=== PATIENT | female | born 1995 | race Caucasian/White ===

== ENCOUNTER 2024-05-17 08:27 | Outpatient (OUT) | payer OTHER, SELFPAY ==
--- NOTE | 2024-05-17 08:28 | US_ITS ---
The [address] [address] Patient Name: LANA GARCIA MRN: [id number] date: 1995 Sex: F Assigned Patient Location: [facility] Current Patient Location: Accession/Order Number: [id number] Exam Date: 05/17/2024 08:30 Report Date: 05/18/2024 05:00 At the request of: SAMMY PÉREZ Procedure: US OB transvaginal EXAMINATION: US OB transvaginal HISTORY: MISSED MENSES COMPARISON: No relevant comparison available. FINDINGS: GESTATIONAL SAC: Present and normal appearing. YOLK SAC: Present and normal appearing. POLE: Present and normal appearing. CARDIAC: Present. UTERUS: Normal size and appearance. OVARIES: Right: Corpus lutein cyst. Left: Normal. CERVIX: 3.7 cm in length and closed. CUL-DE-SAC: Normal. OTHER: None. AGE BY LMP: 8 weeks 2 days ANA BY LMP: 12/25/2024 AGE BY US CRL: 8 weeks 2 days ANA BY US CRL: 12/25/2024 US/US OB transvaginal IMPRESSION: 1. Single live intrauterine . Electronically authenticated by: FILIPPO CABRERA Date: 05/18/2024 05:00
== END 2024-05-17 08:28 | disposition home or self-care (01) ==
LOC: NOMS 08:27
PROVIDERS: Visit Provider Obstetrics & Gynecology
DX: Z34.91 Encounter for supervision of normal pregnancy, unspecified, first trimester (principal); Z3A.08 8 weeks gestation of pregnancy; N92.6 Irregular menstruation, unspecified
CPT/HCPCS: 76817

== ENCOUNTER 2024-05-30 12:55 | Outpatient (OUT) | payer OTHER, SELFPAY ==
[2024-05-30 13:23] LABS: Basophils Percent Auto 0.4 % (0.2-2.0); Eosinophils Percent Auto 0.3 % (0.9-7.0); Hematocrit 39.2 % (36.0-48.0); Hemoglobin 13.2 g/dL (12.0-16.0); Immature Granulocytes Abs Auto 0.05 10^3/uL (0.00-0.03); Immature Granulocytes Pct Auto 0.4 % (0.0-0.5); Lymphocytes Absolute Auto 1.9 10^3/uL (1.2-3.8); Lymphocytes Percent Auto 16.9 % (20.5-60.0); Mean Corpuscular HGB Conc 33.7 g/dL (29.9-35.2); Mean Corpuscular Hemoglobin 30.5 pg (26.7-34.0); Mean Corpuscular Volume 90.5 fL (81.0-99.0); Mean Platelet Volume 9.3 fL (9.5-13.5); Monocytes Absolute Auto 0.5 10^3/uL (0.3-0.8); Monocytes Percent Auto 4.6 % (1.7-12.0); Neutrophils Absolute Auto 8.6 10^3/uL (1.4-6.5); Neutrophils Percent Auto 77.4 % (43.0-75.0); Platelet Count 393 10^3/uL (150-450); Red Blood Count 4.33 10^6/uL (4.20-5.40); Red Cell Distribution Width 12.6 % (11.0-15.0); White Blood Count 11.1 10^3/uL (4.0-11.0)
[2024-05-30 13:53] LABS: Estimated Average Glucose 91 mg/dL; Glycohemoglobin A1C 4.8 % (4.5-6.2)
[2024-05-30 13:55] LABS: Amphetamine Screen Urine NEGATIVE (NEGATIVE); Barbiturates Screen Urine NEGATIVE (NEGATIVE); Benzodiazepines Screen Urine NEGATIVE (NEGATIVE); Buprenorphine Screen Urine NEGATIVE (NEGATIVE); Cannabinoid Screen Urine NEGATIVE (NEGATIVE); Cocaine Screen Urine NEGATIVE (NEGATIVE); Methadone Screen Urine NEGATIVE (NEGATIVE); Methamphetamines Screen Urine NEGATIVE (NEGATIVE); Opiate Screen Urine NEGATIVE (NEGATIVE); Oxycodone Screen Urine NEGATIVE (NEGATIVE); Phencyclidine Screen Urine NEGATIVE (NEGATIVE); Tricyclic Antidepressant Urine NEGATIVE (NEGATIVE)
[2024-05-31 06:10] LABS: HBsAg Screen Negative (Negative); HCV Ab Non Reactive (Non Reactive); HIV Ab/p24 Ag Screen Non Reactive (Non Reactive)
[2024-05-31 10:11] LABS: Rapid Plasma Reagin, Quant Non Reactive titer (NonRea<1:1)
== END 2024-05-30 12:56 | disposition home or self-care (01) ==
LOC: LAB 12:57
PROVIDERS: PCP Family Medicine; Visit Provider Obstetrics & Gynecology
DX: Z34.01 Encounter for supervision of normal first pregnancy, first trimester (principal); N92.6 Irregular menstruation, unspecified
CPT/HCPCS: 36415; 80307; 83036; 85025; 86592; 86762; 86803; 86850; 86900; 86901; 87086; 87340; 87389

== ENCOUNTER 2024-07-15 21:44 | Outpatient (REF) | payer OTHER, SELFPAY ==
--- OUTSIDE RECORDS SUMMARY | 2024-07-15 21:48 | XMS_ITS | CCD ---
Author Organization [facility] Care Team Providers Care Optician Name Role Phone Valeria Ball Unavailable ANGELA POWELL Primary Care Physician Himanshu Arshad Attending Unavailable ANGELA POWELL Primary Care Unavailable Elissa Vargas Unavailable Alessandra Deluna MD Primary Care Provider SAMMY COLE Attending Unavailable Allergies Allergy Classification Reported Allergen(s) Allergy Type Date of Onset Reaction(s) Facility (9 sources) Phentermine Drug Allergy 023 Anxiety, Palpitations, Shortness of breath be2 [facility] Other (3 sources) Spironolactone; Translations: [spironolactone] Drug Allergy Unknown (qualifier value) [facility] (1 source) doxycyline Propensity to adverse reactions rash be2 [facility] Other (10 sources) Doxycycline; Translations: [doxycycline] Drug Allergy 023 Eruption of skin (disorder), Hives, Itching, Photosensitivity, Rash [facility] (8 sources) Spironolactone Drug Allergy 023 Hives, Itching, Photosensitivity [facility] Medications Current Medications Medication Drug Class(es) Dates Sig (Normalized) Sig (Original) [id number] 200 actuat albuterol 0.09 mg/actuat metered dose inhaler (1 source) beta2-Adrenergic Agonist Start: 05-06-2022 take 2 puff(s) by inhalation four times daily as needed Albuterol Sulfate HFA 108 (90 Base) MCG/ACT 2 puffs Inhalation 4 times a day prn Apr, Active azithromycin 250 mg oral tablet (1 source) Macrolide Antimicrobial Start: 05-06-2022 Azithromycin 250 MG 2 tablet on the first day, then 1 tablet daily for 4 days Orally Once a day for 5 day(s) Apr, Active cetirizine hydrochloride 10 mg oral capsule (1 source) Histamine-1 Receptor Antagonist Start: 10-13-2022 End: 10-20-2022 take 1 capsule by mouth once daily as needed cetirizine 10 mg oral capsule 10 mg = 1 cap(s), Oral, Daily, PRN for allergy symptoms, X 7 day(s), # 7 cap(s), Refills(s) 0, Pharmacy: [facility], 170, cm, 10/13/22 15:21:00 EDT, Height/Length Dosing, 91.6, kg, 10/13/22 15:21:00 EDT, Weight Dosing Start Date: 10/13/22 Stop Date: 10/20/22 Status: Ordered Ethinyl Estradiol / Ferrous fumarate / Norethindrone (3 sources) Estrogen Start: 11-08-2022 End: 05-17-2024 take 1 tablet by mouth in the morning 07/15 1-20 MG-MCG tablet Take 1 tablet by mouth in the morning. 11/08/2022 05/17/2024 Discontinued (Therapy completed) Start: 08-28-2020 take 1 tablet by mouth once da olimpia 07/15 oral tablet 1 tab(s), Oral, Daily Start Date: 08/28/20 Status: Ordered FLUoxetine 20 mg oral capsule (8 sources) Serotonin Reuptake Inhibitor Start: 12-01-2022 take 1 capsule by mouth in the morning FLUoxetine (PROzac) 20 MG capsule Indications: Anxiety Take 1 capsule (20 mg) by mouth in the morning. 90 capsule 1 12/01/2022 Active predniSONE 20 mg oral tablet (2 sources) Start: 10-13-2022 End: 10-18-2022 take 1 tablet by mouth once daily predniSONE 20 mg Tab 20 mg = 1 tab(s), Oral, Daily, X 5 day(s), # 5 tab(s), Refills(s) 0, Pharmacy: [facility], 170, cm, 10/13/22 15:21:00 EDT, Height/Length Dosing, 91.6, kg, 10/13/22 15:21:00 EDT, Weight Dosing Start Date: 10/13/22 Stop Date: 10/18/22 Status: Ordered Start: 05-06-2022 take 1 tablet by volodymyr th every twelve hours predniSONE 20 MG 1 tablet Orally 2 times a day for 5 day(s) Apr, Active Problems Active Problems Problem Classification Problem Date Documented Date Episodic/Chronic Chronic obstructive pulmonary disease and bronchiectasis (1 source) Bronchitis, not specified as acute or chronic Episodic Immunizations and screening for infectious disease (2 sources) Exposure to sexually transmissible disorder; Translations: [Contact with and (suspected) exposure to infections with a predominantly sexual mode of transmission] 07-15-2024 Episodic Menstrual disorders (1 source) Missed period; Translations: [Irregular menstruation, unspecified] 05-17-2024 Chronic Other female genital disorders (2 sources) Vaginal discharge; Translations: [Other specified noninflammatory disorders of vagina] 07-15-2024 Episodic Other inflammatory condition of skin (1 source) Pruritic rash; Translations: [Other prurigo] Onset: 10-13-2022 Episodic Other nervous system disorders (1 source) Numbness of foot ; Translations: [Other disturbances of skin sensation] Episodic Other and delivery including normal (12 sources) ; Translations: [Encounter for supervision of normal , unspecified, unspecified trimester] Onset: 06-17-2024 05-17-2024 Episodic Other screening for suspected conditions (not mental disorders or infectious disease) (2 sources) Patient encounter status; Translations: [Encounter for other specified screening] 07-15-2024 Episodic Residual codes; unclassified (8 sources) Gestation period, 12 weeks; Translations: [12 weeks gestation of ] Onset: 06-17-2024 06-17-2024 Episodic Residual codes; unclassified (2 sources) Gestation period, 16 weeks; Translations: [16 weeks gestation of ] 07-15-2024 Episodic Past or Other Problems Problem Classification Problem Date Documented Da te Episodic/Chronic Unclassified (1 source) Contact with and (suspected) exposure to covid-19 Z20.822 Viral infection (1 source) COVID-19 NEGATED: Highlighted row has been ruled out!Unclassified (2 sources) No known active problems 12-01-2022 Results Test Name Value Interpretation Reference Range Facility Urinalysis macro (dipstick) panel (U)on 07-15-2024 Bilirubin, UA Negative Negative - 4(70) +++ mg/dL [facility] Blood, UA Negative Negative - 50 Leon/mcL [facility] Clarity, UA Clear [facility] Color, UA Yellow [facility] Glucose, UA Negative Negative - 1999(110) ++++ mg/dL [facility] Interpretation and review of laboratory results Abnormal [facility] Ketones, UA Negative Negative - 160(16) ++++ mg/dL [facility] Leukocytes, UA Trace Negative - 500+++ [place]/mcL [facility] Nitrite, UA Negative Negative - Positive [facility] pH, UA 6 5 - 9 [facility] Protein, UA Negative Negative - 1999(20) ++++ mg/dL [facility] Spec Grav, UA 1.01 1 - 1.03 [facility] Urobilinogen, UA 0.2 0.2 - 12 mg/dL [facility] Urinalysis macro (dipstick) panel (U)on 06-17-2024 Bilirubin, UA Negative Negative - 4(70) +++ mg/dL [facility] Blood, UA Negative Negative - 50 Leon/mcL [facility] Clarity, UA Clear [facility] Color, UA Yellow [facility] Glucose, UA Negative Negative - 1999(110) ++++ mg/dL [facility] Interpretation and review of laboratory results Abnormal [facility] Ketones, UA Negative Negative - 160(16) ++++ mg/dL [facility] Leukocytes, UA Negative Negative - 500+++ [place]/mcL [facility] Nitrite, UA Negative Negative - Positive [facility] pH, UA 6 5 - 9 [facility] Protein, UA Negative Negative - 1999(20) ++++ mg/dL [facility] Spec Grav, UA 1.01 1 - 1.03 [facility] Urobilinogen, UA 0.2 0.2 - 12 mg/dL [facility] MLR HEMOGLOBIN A1Con 024 Glucose [Mass/Vol] 91 mg/dL [facility] HbA1c (Bld) [Mass fraction] 4.8 % 4.5 - 6.2 % [facility] Comment on above: ADA RECOMMENDED LIMI T 4.0 - 6.0 ADA THERAPEUTIC TARGET < 7.0 ACTION SUGGESTED > 7.0 [facility] HCG ( test) Ql (U)o n 05-17-2024 Interpretation and review of laboratory results Abnormal [facility] Preg Test, Ur Positive Negative [facility] care [facility] Urinalysis macro (dipstick) panel (U)on 05-17-2024 Bilirubin, UA Negative Negative - 4(70) +++ mg/dL [facility] Blood, UA Negative Negative - 50 Leon/mcL [facility] Clarity, UA Clear [facility] re Color, UA Yellow [facility] Glucose, UA Negative Negative - 1999(110) ++++ mg/dL [facility] Interpretation and review of laboratory results Normal [facility] re Ketones, UA Negative Negative - 160(16) ++++ mg/dL [facility] Leukocytes, UA Negative Negative - 500+++ [place]/mcL [facility] Nitrite, UA Negative Negative - Positive [facility] pH, UA 6 5 - 9 [facility] Protein, UA Negative Negative - 1999(20) ++++ mg/dL [facility] Spec Grav, UA 1.025 1 - 1.03 [facility] Urobilinogen, UA 0.2 0.2 - 12 mg/dL [facility] Amb[facility] Visit Summaryon 0 10-13-2022 Ambulatory Visit Summary JENIFFER GARNETT Tree :1995 Visit Date:10/13/2022 Ambulatory Visit Instructions Your Diagnosis Pruritic rash Your Care Team Attending Physician - Himanshu Latif PA-C Primary Care Physician - ANGELA POWELL CNP This Is Your Medications List cetirizine (cetirizine 10 mg oral capsule) predniSONE (predniSONE 20 mg Tab) Contact prescribing physician if questions or concerns ethinyl estradiol-norethindro ne (07/15 oral tablet) Discharge Vitals Temperature (Oral) 37 ?C Heart Rate (Peripheral) 81 Height 170 cm Height 67 in Weight 91.6 kg Weight 201.52 lb BMI 31.7 What to do next You Need to Schedule the Following Appointments Follow Up with ANGELA POWELL CNP When: Where: [address] [place] [address] [address] [place] [phone] Medications What How Much When Why Instructions New cetirizine (cetirizine 10 mg oral capsule) 1 Capsules By Mouth Every day as needed for for allergy symptoms Pruritic rash Duration: 7 Days Pickup at [facility] 1985 New predniSONE (predniSONE 20 mg Tab) 1 Tablets By Mouth Every day Pruritic rash Duration: 5 Days Pickup at [facility] 1985 Unchanged ethinyl estradiol-norethindro ne ( oral tablet) 1 Tablets By Mouth Every day Contact prescribing physician if questions or concerns Pharmacy Information [facility] 1985: [address], [place] [phone] Medications and Immunizations Administered Not Given influenza virus vaccine, inactivated, Permanently Refused SARS-CoV-2 mRNA (tozinameran 5y-11y) vac, Parent Or Guardian Refuses Allergies doxycycline (Rash) spironolactone (Unknown) Education Materials Rash, Adult A rash is a change in the color of your skin. A rash can also change the way your skin feels. There are many different conditions and factors that can cause a rash. Follow these instructions at home: The goal of treatment is to stop the itching and keep the rash from spreading. Watch for any changes in your symptoms. Let your doctor know about them. Follow these instructions to help with your condition: Medicine Take or apply rrsf-rjo-qkmvzmi and prescription medicines only as told by your doctor. These may include medicines: ? To treat red or swollen skin (corticosteroid creams). ? To treat itching. ? To treat an allergy (oral antihistamines). ? To treat very bad symptoms (oral corticosteroids). Skin care ? Put cool cloths (compresses) on the affected areas. ? Do not scratch or rub your skin. ? Avoid covering the rash. Make sure that the rash is exposed to air as much as possible. Managing itching and discomfort ? Avoid hot showers or baths. These can make itching worse. A cold shower may help. ? Try taking a bath with: ? Epsom salts. You can get these at your local pharmacy or grocery store. Follow the instructions on the package. ? Baking soda. Pour a small amount into the bath as told by your doctor. ? Colloidal oatmeal. You can get this at your local pharmacy or grocery store. Follow the instructions on the package. ? Try putting baking soda paste onto your skin. Stir water into baking soda until it gets like a paste. ? Try putting on a lotion that relieves itchiness (calamine lotion). ? Keep cool and out of the sun. Sweating and being hot can make itching worse. General instructions ? Rest as needed. ? Drink enough fluid to keep your pee (urine) pale yellow. ? Wear loose-fitting clothing. ? Avoid scented soaps, detergents, and perfumes. Use gentle soaps, detergents, perfumes, and other cosmetic products. ? Avoid anything that causes your rash. Keep a journal to help track what causes your rash. Write down: ? What you eat. ? What cosmetic products you use. ? What you drink. ? What you wear. This includes jewelry. ? Keep all follow-up visits as told by your doctor. This is important. Contact a doctor if: ? You sweat at night. ? You lose weight. ? You pee (urinate) more than normal. ? You pee less than normal, or you notice that your pee is a darker color than normal. ? You feel weak. ? You throw up (vomit). ? Your skin or the whites of your eyes look yellow (jaundice). ? Your skin: ? Tingles. ? Is numb. ? Your rash: ? Does not go away after a few days. ? Gets worse. ? You are: ? More thirsty than normal. ? More tired than normal. ? You have: ? New symptoms. ? Pain in your belly (abdomen). ? A fever. ? Watery poop (diarrhea). Get help right away if: ? You have a fever and your symptoms suddenly get worse. ? You start to feel mixed up (confused). ? You have a very bad headache or a stiff neck. ? You have very bad joint pains or stiffness. ? You have jerky movements that you cannot control (seizure). ? Yo (more content not included)... Normal [facility] Ambulatory Visit Summary JENIFFER GARNETT :1995 Visit Date:10/13/2022 Ambulatory Visit Instructions Your Diagnosis Pruritic rash Your Care Team Attending Physician - Himanshu Latif PA-C. Primary Care Physician - ANGELA POWELL CNP This Is Your Medications List cetirizine (cetirizine 10 mg oral capsule) predniSONE (predniSONE 20 mg Tab) Contact prescribing physician if questions or concerns ethinyl estradiol-norethindro ne (07/15 oral tablet) Discharge Vitals Temperature (Oral) 37 ?C Heart Rate (Peripheral) 81 Height 170 cm Height 67 in Weight 91.6 kg Weight 201.52 lb BMI 31.7 What to do next You Need to Schedule the Following Appointments Follow Up with ANGELA POWELL CNP When: Where: [address] [place] [phone] Medications What How Much When Why Instructions New cetirizine (cetirizine 10 mg oral capsule) 1 Capsules By Mouth Every day as needed for for allergy symptoms Pruritic rash Duration: 7 Days Pickup at [facility] 1985 New predniSONE (predniSONE 20 mg Tab) 1 Tablets By Mouth Every day Pruritic rash Duration: 5 Days Pickup at [facility] Unchanged ethinyl estradiol-norethindro ne ( oral tablet) 1 Tablets By Mouth Every day Contact prescribing physician if questions or concerns Pharmacy Information [facility] 1986: [address] [place] [address] [place] [phone] Medications and Immunizations Administered Not Given influenza virus vaccine, inactivated, Permanently Refused SARS-CoV-2 mRNA (toerinameran 5y-11y) vac, Parent Or Guardian Refuses Allergies doxycycline (Rash) spironolactone (Unknown) Education Materials Rash, Adult A rash is a change in the color of your skin. A rash can also change the way your skin feels. There are many different conditions and factors that can cause a rash. Follow these instructions at home: The goal of treatment is to stop the itching and keep the rash from spreading. Watch for any changes in your symptoms. Let your doctor know about them. Follow these instructions to help with your condition: Medicine Take or apply gqpl-[id number] and prescription medicines only as told by your doctor. These may include medicines: ? To treat red or swollen skin (corticosteroid creams). ? To treat itching. ? To treat an allergy (oral antihistamines). ? To treat very bad symptoms (oral corticosteroids). Skin care ? Put cool cloths (compresses) on the affected areas. ? Do not scratch or rub your skin. ? Avoid covering the rash. Make sure that the rash is exposed to air as much as possible. Managing itching and discomfort ? Avoid hot showers or baths. These can make itching worse. A cold shower may help. ? Try taking a bath with: ? Epsom salts. You can get these at your local pharmacy or grocery store. Follow the instructions on the package. ? Baking soda. Pour a small amount into the bath as told by your doctor. ? Colloidal oatmeal. You can get this at your local pharmacy or grocery store. Follow the instructions on the package. ? Try putting baking soda paste onto your skin. Stir water into baking soda until it gets like a paste. ? Try putting on a lotion that relieves itchiness (calamine lotion). ? Keep cool and out of the sun. Sweating and being hot can make itching worse. General instructions ? Rest as needed. ? Drink enough fluid to keep your pee (urine) pale yellow. ? Wear loose-fitting clothing. ? Avoid scented soaps, detergents, and perfumes. Use gentle soaps, detergents, perfumes, and other cosmetic products. ? Avoid anything that causes your rash. Keep a journal to help track what causes your rash. Write down: ? What you eat. ? What cosmetic products you use. ? What you drink. ? What you wear. This includes jewelry. ? Keep all follow-up visits as told by your doctor. This is important. Contact a doctor if: ? You sweat at night. ? You lose weight. ? You pee (urinate) more than normal. ? You pee less than normal, or you notice that your pee is a darker color than normal. ? You feel weak. ? You throw up (vomit). ? Your skin or the whites of your eyes look yellow (jaundice). ? Your skin: ? Tingles. ? Is numb. ? Your rash: ? Does not go away after a few days. ? Gets worse. ? You are: ? More thirsty than normal. ? More tired than normal. ? You have: ? New symptoms. ? Pain in your belly (abdomen). ? A fever. ? Watery poop (diarrhea). Get help right away if: ? You have a fever and your symptoms suddenly get worse. ? You start to feel mixed up (confused). ? You have a very bad headache or a stiff neck. ? You have very bad joint pains or stiffness. ? You have jerky movements that you cannot control (seizure). ? Yo (more content not included)... Normal [facility] Family Medicine Office/Clini c Noteon 10-13-2022 Family Medicine Office/Clinic Note Chief Complaint EST hives HPI Staff 27 year old female presents with hives for a week and Benadryl isn't helping it at all has no idea what caused it arms chest back and legs History of Present Illness I have reviewed and verified the staff HPI to be accurate for this encounter. 27-year-old female presents with complaint of itching and rash. Patient states on occasion she gets some raised lesions which are itching. She states she has itching in bilateral arms abdomen and back and also sometimes her face will itch. Denies any hives like rash or raised welts. Denies any new soaps lotions detergents contacts. She is unsure as to what is causing this but she has been taking Benadryl up to 2 tablets every 4 hours and she states is not doing anything. No belly pain no nausea vomiting diarrhea no recent viral illness or sick contacts. Review of Systems PHQ Score Initial Depression Screen Score: 0 Physical Exam Vitals & Measurements T: 37 ?C(Oral) HR: 81(Peripheral) SpO2: 98% HT: 67 in HT: 170 cm WT: 91.6 kg WT: 201.52 lb BMI: 31.7 General: Well developed, well nourished, in no acute distress Eyes: not assessed Ears: No deformity or lesion of external ear. Canals and TM appear normal bilaterally. TM?s intact, not inflamed, with normal light reflex. Hearing grossly normal to conversational speech Nose: mild nasal mucosa inflammation and edema Mouth: Mucous membranes moist. Normal oropharynx, and posterior pharynx without lesions or exudates. Tongue normal Neck: not assessed Lungs: Normal respiratory effort and clear to auscultation Cardio: regular rate and rhythm, no murmur Abdomen: not assessed Musculoskeletal: not assessed Extremity: not assessed Neurologic: not assessed Skin: No significant skin rash patient has some excoriations to the right upper inner bicep region in addition to the lower and upper abdomen. No weeping lesions no blistering lesions no macular papular rash no pustule type rash. No erythema or concern for cellulitis. No skin lesions noted. Mental Status: not assessed Assessment/Plan 1. Pruritic rash (L28.2: Other prurigo) Follow-up with primary care provider in 3 to 5 days contact their office to schedule follow-up appointment. Prescription for prednisone 20 mg daily x5 days a sent to pharmacy for you this is low-dose in regards to reaction of hypersensitivity to prior Medrol Dosepak so we discussed and decided to not taper. You also understand that not tapering may not provide the exact benefit you are looking for. We discussed in regards to a daily Zyrtec which is nondrowsy to help with itching which should cover you for 24 hours. Continue to monitor if you notice any spreading rash if he develop hives or welted lesions or for any other worsening or concerning symptoms he should be reevaluated. Ordered: cetirizine, 10 mg = 1 cap(s), Oral, Daily, PRN for allergy symptoms, X 7 day(s), # 7 cap(s), Refills(s) 0, Pharmacy: [facility] 1985, 170, cm, 10/13/22 15:21:00 EDT, Height/Length Dosing, 91.6, kg, 10/13/22 15:21:00 EDT, Weight Dosing predniSONE, 20 mg = 1 tab(s), Oral, Daily, X 5 day(s), # 5 tab(s), Refills(s) 0, Pharmacy: [facility] 1985, 170, cm, 10/13/22 15:21:00 EDT, Height/Length Dosing, 91.6, kg, 10/13/22 15:21:00 EDT, Weight Dosing Follow-up With When Contact Information ANGELA POWELL CNP [address] [facility] [address] [place] [phone] Additional Instructions: Patient Education Rash, Adult, [id number] Problem List/Past Medical History Ongoing No qualifying data Historical No qualifying data Medications cetirizine 10 mg oral capsule, 10 mg= 1 cap(s), Oral, Daily, PRN 07/15 oral tablet, 1 tab(s), Oral, Daily predniSONE 20 mg Tab, 20 mg= 1 tab(s), Oral, Daily Allergies doxycycline (Rash) spironolactone (Unknown) Social History Tobacco Never (less than 100 in lifetime), vape Tobacco Use:. Vaping, 10/13/2022 Immunizations Vaccine Date Status Comments influenza virus vaccine, inactivated - Not Given Permanently Refused SARS-CoV-2 mRNA (toerinameran 5y-11y) vac - Not Given Parent Or Guardian Refuses Normal [facility] Comment on above: Result Comment: Elec tronically Signed By: Salomon CAI, Himanshu Kwok\.br\Date and Time Signed: 10/13/22 15:45 EDT Patient Educationon 10-14-19 Patient Education Infectious Disease Rash, Adult A rash is a change in the color of your skin. A rash can also change the way your skin feels. There are many different conditions and factors that can cause a rash. Follow these instructions at home: The goal of treatment is to stop the itching and keep the rash from spreading. Watch for any changes in your symptoms. Let your doctor know about them. Follow these instructions to help with your condition: Medicine Take or apply [id number] and prescription medicines only as told by your doctor. These may include medicines: ? To treat red or swollen skin (corticosteroid creams). ? To treat itching. ? To treat an allergy (oral antihistamines). ? To treat very bad symptoms (oral corticosteroids). Skin care ? Put cool cloths (compresses) on the affected areas. ? Do not scratch or rub your skin. ? Avoid covering the rash. Make sure that the rash is exposed to air as much as possible. Managing itching and discomfort ? Avoid hot showers or baths. These can make itching worse. A cold shower may help. ? Try taking a bath with: ? Epsom salts. You can get these at your local pharmacy or grocery store. Follow the instructions on the package. ? Baking soda. Pour a small amount into the bath as told by your doctor. ? Colloidal oatmeal. You can get this at your local pharmacy or grocery store. Follow the instructions on the package. ? Try putting baking soda paste onto your skin. Stir water into baking soda until it gets like a paste. ? Try putting on a lotion that relieves itchiness (calamine lotion). ? Keep cool and out of the sun. Sweating and being hot can make itching worse. General instructions ? Rest as needed. ? Drink enough fluid to keep your pee (urine) pale yellow. ? Wear loose-fitting clothing. ? Avoid scented soaps, detergents, and perfumes. Use gentle soaps, detergents, perfumes, and other cosmetic products. ? Avoid anything that causes your rash. Keep a journal to help track what causes your rash. Write down: ? What you eat. ? What cosmetic products you use. ? What you drink. ? What you wear. This includes jewelry. ? Keep all follow-up visits as told by your doctor. This is important. Contact a doctor if: ? You sweat at night. ? You lose weight. ? You pee (urinate) more than normal. ? You pee less than normal, or you notice that your pee is a darker color than normal. ? You feel weak. ? You throw up (vomit). ? Your skin or the whites of your eyes look yellow (jaundice). ? Your skin: ? Tingles. ? Is numb. ? Your rash: ? Does not go away after a few days. ? Gets worse. ? You are: ? More thirsty than normal. ? More tired than normal. ? You have: ? New symptoms. ? Pain in your belly (abdomen). ? A fever. ? Watery poop (diarrhea). Get help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 General: Bowel sounds are normal. There is no distension. Palpations: Abdomen is soft. Tenderness: There is no abdominal tenderness. There is no guarding or rebound. Musculoskeletal: General: No swelling. Normal range of motion. Right lower leg: No edema. Left lower leg: No edema. Neurological: Mental Status: She is alert and oriented to person, place, and time. Skin: General: Skin is warm and dry. Psychiatric: Mood and Affect: Mood normal. Behavior: Behavior normal. Vitals and nursing note reviewed. Exam conducted with a ship fastener present. Vitals: Estimated body mass index is 36.65 kg/m as calculated from the following: Height as of 12/01/22: 5' 7 . Weight as of 05/17/24: 234 lb. BP: Patient's last menstrual period was 03/20/2024. ASSESSMENT & PLAN ICD-10-CM 1. 12 weeks gestation of Z3A.12 POCT urinalysis dipstick manually resulted 2. Second trimester Z34.92 POCT urinalysis dipstick manually resulted New OB: Patient presents today for 1st time obstetrics appointment with provider. Patient is currently 12w5d . Patients history has been reviewed in great detail including any potential risks. Patient stated she currently has no complaints. Expectations throughout regarding labs, ultrasounds, and appointments have been discussed with the patient in detail. It was reiterated that the patient is to drink 6-8 glasses of water a day, eat 6 small meals a day, do not consume raw or undercooked meat, and stay away from [facility]. Patient has been consulted regarding any further do's and don'ts of . Patient voiced understanding and all questions and concerns were answered. Orders Placed This Encounter Procedures POCT urinalysis dipstick manually resulted Follow Up: Patient is to return in 4 weeks for routine OB appointment. Documented by Marlen Tejeda LPN on behalf of: Sammy Cole documented in this encounter [facility] 05-17-2024 History of Present illness Narrative Reason for Appointment: Patient ID: Jeniffer Garnett is a 29 y.o. female who presents for Amenorrhea Patient presents today for a Nurse OB Intake appointment. Patient is 8w2d with a Estimated Date of Delivery: 12/25/24 OB History Para Term AB Living 1 SAB IAB Ectopic Multiple Live Births # Outcome Date GA Lbr Jd/2nd Weight Sex Type Anes PTL Lv 1 Current Current Medications: has a current medication list which includes the following prescription(s): fluoxetine. Medical History: Active Ambulatory Problems Diagnosis Date Noted No Active Ambulatory Problems Resolved Ambulatory Problems Diagnosis Date Noted No Resolved Ambulatory Problems Past Medical History: Diagnosis Date Anxiety Depression (CMS/HCC) Family History Problem Relation Name Age of Onset Depression Mother Maura Hypertension Mother Maura Asthma Father Jesse Heart disease Paternal Grandfather Roger Social History Tobacco Use Smoking status: Never Smokeless tobacco: Never Vaping Use Vaping status: Every Day Substance Use Topics Alcohol use: Not Currently Drug use: Not Currently Past Surgical History: Procedure Laterality Date ADENOIDECTOMY TONSILLECTOMY Allergies Allergen Reactions Phentermine Anxiety, Palpitations and Shortness of breath Other Reaction(s): heart racing Spironolactone Hives, Itching and Photosensitivity Doxycycline Hives, Itching, Photosensitivity and Rash Vitals: Estimated body mass index is 32.08 kg/m as calculated from the following: Height as of 12/01/22: 5' 7 . Weight as of 12/01/22: 204 lb 12.8 oz. BP: Patient's last menstrual period was 03/20/2024. Assessment/Plan Diagnoses and all orders for this visit: Missed menses - Type and screen; Future - ABO/Rh; Future - CBC and differential - Hemoglobin A1c - RPR - Rubella antibody, IgG - Hepatitis B surface antigen - Hepatitis C antibody - HIV-1 and HIV-2 antibodies - Urine culture - OB transvaginal; Future - POCT , urine manually resulted - POCT urinalysis dipstick manually resulted , unspecified gestational age - Type and screen; Future - ABO/Rh; Future - CBC and differential - Hemoglobin A1c - RPR - Rubella antibody, IgG - Hepatitis B surface antigen - Hepatitis C antibody - HIV-1 and HIV-2 antibodies - Rapid drug screen, urine; Future Encounter for supervision of normal first in first trimester - Rapid drug screen, urine; Future Nurse Note: OB Intake: Patient presents today for first OB visit. Patients history has been reviewed in great detail including any potential risks. Patient signed consent forms and patient desires testing in both trimesters. Patient currently has no complaints and has been advised to drink 6-8 glasses of water a day, eat no raw or undercooked meat, and stay away from [facility]. Patient has also been advised to not change litter boxes and eat 6 small meals a day. Patient has been consulted regarding the do's and don'ts of . Patient was given labs and all questions and concerns were answered. Follow Up: Patient is to return in 4 weeks for routine OB appointment. Follow Up: Patient is to have labs drawn at directed and return to office for initial OB appointment with provider. Patient may call office as needed with any concerns or questions. Nurse Visit Completed by: Brandie Estes MA documented in this encounter [facility] 10-13-2022 Hospital Discharge instructions Patient Education 10/13/2022 15:44:45 Rash, Adult, Dluk-oj-Zjll Rash, Adult A rash is a change in the color of your skin. A rash can also change the way your skin feels. There are many different conditions and factors that can cause a rash. Follow these instructions at home: The goal of treatment is to stop the itching and keep the rash from spreading. Watch for any changes in your symptoms. Let your doctor know about them. Follow these instructions to help with your condition: Medicine Take or apply iywe-xxx-lffqgrj and prescription medicines only as told by your doctor. These may include medicines: To treat red or swollen skin (corticosteroid creams). To treat itching. To treat an allergy (oral antihistamines). To treat very bad symptoms (oral corticosteroids). Skin care Put cool cloths (compresses) on the affected areas. Do not scratch or rub your skin. Avoid covering the rash. Make sure that the rash is exposed to air as much as possible. Managing itching and discomfort Avoid hot showers or baths. These can make itching worse. A cold shower may help. Try taking a bath with: ?Epsom salts. You can get these at your local pharmacy or grocery store. Follow the instructions on the package. ?Baking soda. Pour a small amount into the bath as told by your doctor. ?Colloidal oatmeal. You can get this at your local pharmacy or grocery store. Follow the instructions on the package. Try putting baking soda paste onto your skin. Stir water into baking soda until it gets like a paste. Try putting on a lotion that relieves itchiness (calamine lotion). Keep cool and out of the sun. Sweating and being hot can make itching worse. General instructions Rest as needed. Drink enough fluid to keep your pee (urine) pale yellow. Wear loose-fitting clothing. Avoid scented soaps, detergents, and perfumes. Use gentle soaps, detergents, perfumes, and other cosmetic products. Avoid anything that causes your rash. Keep a journal to help track what causes your rash. Write down: ?What you eat. ?What cosmetic products you use. ?What you drink. ?What you wear. This includes jewelry. Keep all follow-up visits as told by your doctor. This is important. Contact a doctor if: You sweat at night. You lose weight. You pee (urinate) more than normal. You pee less than normal, or you notice that your pee is a darker color than normal. You feel weak. You throw up (vomit). Your skin or the whites of your eyes look yellow (jaundice). Your skin: ?Tingles. ?Is numb. Your rash: ?Does not go away after a few days. ?Gets worse. You are: ?More thirsty than normal. ?More tired than normal. You have: ?New symptoms. ?Pain in your belly (abdomen). ?A fever. ?Watery poop (diarrhea). Get help right away if: You have a fever and your symptoms suddenly get worse. You start to feel mixed up (confused). You have a very bad headache or a stiff neck. You have very bad joint pains or stiffness. You have jerky movements that you cannot control (seizure). Your rash covers all or most of your body. The rash may or may not be painful. You have blisters that: ?Are on top of the rash. ?Grow larger. ?Grow together. ?Are painful. ?Are inside your nose or mouth. You have a rash that: ?Looks like purple pinprick-sized spots all over your body. ?Has a bull's eye or looks like a target. ?Is red and painful, causes your skin to peel, and is not from being in the sun too long. Summary A rash is a change in the color of your skin. A rash can also change the way your skin feels. The goal of treatment is to stop the itching and keep the rash from spreading. Take or apply ulqi-rsa-fnjmfsg and prescription medicines only as told by your doctor. Contact a doctor if you have new symptoms or symptoms that get worse. Keep all follow-up visits as told by your doctor. This is important. This information is not intended to replace advice given to you by your health care provider. Make sure you discuss any questions you have with your health care provider. Document Revised: 03/24/2022 Document Reviewed: 03/24/2022 [employer] Patient Education 2022 [employer] Follow Up Care 10/13/2022 14:06:58 With:ANGELA POWELL CNP Address: [address] [place] [phone] When: Unknown [facility] 05-06-2022 Evaluation note Encounter Date Diagnosis Assessment Notes Apr, COVID-19 (ICD-10 - U07.1) Medrol doseDischarge Instructions for COVID-19 (Suspected or Confirmed ) material was printed Drink plenty fluids, get plenty of rest. Take as prescribed until gone. Use Delsym cough syrup for the cough. Take Tylenol or Motrin for aches pains or fevers. You must quarantine for 5 days after the onset of your symptoms of COVID. Follow-up with your family physician if no improvement in 2 to 3 days. Take the azithromycin and the prednisone as prescribed until gone. Use the albuterol inhaler as prescribed as needed for cough or shortness of breath. Apr, Bronchitis (ICD-10 - J40) Apr, Contact with and (suspected) exposure to covid-19 (ICD-10 - Z20.822) [facility] Other Evaluation + Plan note No data available for this section [facility] Evaluation note* Diagnosis Missed menses , unspecified gestational age Encounter for supervision of normal first in first trimester [facility] Diagnosis 12 weeks gestation of Second trimester state, incidental [facility]* Diagnosis Screening, , for anatomic survey Encounter for anatomic survey Second trimester state, incidental 16 weeks gestation of Well woman exam with routine gynecological exam Routine gynecological examination Vaginal discharge Leukorrhea, not specified as infective STD exposure documented [facility] Narrative - Reported* Type Description Date Medical History Autonomic nervous system disease or syndrome Surgical History T+A age 8 Hospitalization History T+A [employer] [facility] Other Progress note No data available for this section [facility] Summary Purpose Family History No Family History Records FoundNo Family History Records FoundNo Family History Records Found Advance Directives No Advanced Directives Records FoundNo Advanced Directives Records FoundNo Advanced Directives Records Found Additional Source Comments INFORMATION SOURCE (unrecogn ized section and content) DATE CREATED AUTHOR [facility] DATE CREATED AUTHOR AUTHOR'S ORGANIZ ATION 10/14/2022 [facility] DATE CREATED AUTHOR AUTHOR'S ORGANIZ ATION 06/19/2024 [facility] EPIC REASON FOR VISIT (unrecogniz ed section and content) Reason Comments Amenorrhea Reason Comments Routine Visit Patient Care team informatio n (unrecognized section and content) Optician Relationship Specialty Start Date End Date Alessandra Deluna MD [address] [place] [address] PCP - General Family Medicine 12/01/22 Elissa Hartman PA [address] [place] [address] Physician Customer Expert Family Medicine 12/01/22 Optician Relationship Specialty Start Date End Date Alessandra Deluna MD [address] [place] [address] PCP - General Family Medicine 12/01/22 Elissa Hartman PA [address] [place] [address] Physician Customer Expert Family Medicine 12/01/22 Optician Relationship Specialty Start Date End Date Alessandra Deluna MD [address] [place] [address] PCP - General Family Medicine 12/01/22 Elissa Hartman PA [address] [place] [address] Physician Customer Expert Family Medicine 12/01/22 Optician Relationship Specialty Start Date End Date Alessandra Deluna MD [address] [place] [address] PCP - General [facility] 12/01/22 Elissa Hartman PA [address] [place] [address] Physician Customer Expert [facility] 12/01/22 Optician Relationship Specialty Start Date End Date Alessandra Deluna MD [address] [place] [address] PCP - General Family Medicine 12/01/22 Elissa Hartman PA [address] [place] [address] Physician Customer Expert [facility] 12/01/22 Optician Relationship Specialty Start Date End Date Alessandra Deluna MD [address] [place] [address] PCP - General Family Medicine 12/01/22 Elissa Hartman PA [address] [place] [address] Physician Customer Expert [facility] 12/01/22 FOR RECORDS PERTAINING TO PATIENTS WHO ARE OR HAVE BEEN ENROLLED IN A CHEMICAL DEPENDENCY/SUBSTANCEABUSE PROGRAM, SOME INFORMATION MAY BE OMITTED. This clinical summary was aggregated from multiple sources. Caution should be exercised in using it in the provision of clinical care. This summary normalizes information from multiple sources, and as a consequence, information in this document may materially change the coding, format and clinical context of patient data. In addition, data may be omitted in some cases. CLINICAL DECISIONS SHOULD BE BASED ON THE PRIMARY CLINICAL RECORDS. [facility] [employer] [facility] [facility]. provides no warranty or guarantee of the accuracy or completeness of information in this document.
== END 2024-07-15 21:45 | disposition home or self-care (01) ==
LOC: LAB 21:44
PROVIDERS: PCP Family Medicine; Visit Provider Physician Assistant
DX: Z01.419 Encounter for gynecological examination (general) (routine) without abnormal findings (principal)
CPT/HCPCS: 88175

== ENCOUNTER 2024-09-26 08:01 | Outpatient (OUT) | payer OTHER, SELFPAY ==
--- OUTSIDE RECORDS SUMMARY | 2024-09-26 08:06 | XMS_ITS ---
Author Name Auto Generated Organization [facility] Care Team Providers Care Aircraft Time Clerk Name Role Phone SAMMY PÉREZ Attending Unavailable SAMMY PÉREZ Attending Unavailable PIERRE VEE Attending Unavailable PIERRE VEE Attending Unavailable PROBLEMS No Problem Records Found PROCEDURES No Procedure Records Found RESULTS US OB 14+ WEEKS ANATOMY SCAN Observed: 0 08/13/2024 8:55 AM Status: F Source: [facility] EPIC REPOSITORY Order Comment: US OB ANATOMY SINGLE W US OB CERVICAL LENGTH Estimated Date of Delivery: 12/25/24 Gestational Age as of 07/15/2024: 16w5d EXAM: US OB 14+ WEEKS ANATOM Y SCAN HISTORY: anatomy. TECHNIQUE: Two-dimensional transabdominal grayscale ultrasound imaging of the pelvis was performed. Exam limited by patient body habitus. FINDINGS: Gestation: Single Presentation: Cephalic Cardiac Activity: 153 beats per minute Placental Location: Anterior with no sonographic abnormalities identified. Distance from Placental Tip to Cervix: 3.6 cm Cervical Length: 3.3 cm Amniotic Fluid: Appears adequate MEASUREMENTS: BPD: 4.9 cm EGA: 21 weeks 0 days HC: 18.6 cm EGA: 21 weeks 0 days AC: 16.2 cm EGA: 21 weeks 2 days FL: 3.6 cm EGA: 21 weeks 3 days HC/AC Ratio: 1.15 The gestational age by today's ultrasound is 21 weeks 1 days (+/- 10 days gestation). Estimated Weight: 415 grams, +/- 62 grams ( 0 lb 15 oz). Weight Percentile for gestational age: 70 % ANATOMY C-Spine: Unremarkable T-Spine: Unremarkable L-Spine: Unremarkable Sacrum: Unremarkable Four Chamber Heart: Unremarkable LVOT: Not visualized RVOT: Not visualized Stomach: Unremarkable Kidneys: Unremarkable Bladder: Unremarkable Diaphragm: Unremarkable Cord insertion: Unremarkable Cord vessels: Three Lateral Ventricles: Unremarkable Cerebellum: Not visualized Cisterna Magna: Unremarkable Posterior Fossa: Limited Right Femur: Unremarkable Left Femur: Unremarkable Right Tib/Fib: Unremarkable Left Tib/Fib: Unremarkable Right Rad/Ulnar: Unremarkable Left Rad/Ulnar: Unremarkable Right Humerus: Unremarkable Left Humerus: Unremarkable Nose/Lips: Unremarkable Orbits: Unremarkable IMPRESSION: 1. Single, live intrauterine gestation 20 weeks, 6 days by LMP. Today's ultrasound measurements correlate with a gestational age of 21 weeks 1 days. Estimated weight is 415 grams, +/- 62 grams ( 0 lb 15 oz) which correlates to 70 %. ANA is 12/23/2024. 2. Limited assessment of the LVOT and RVOT. Otherwise unremarkable anatomy examination. Electronically Signed:Electronically signed by RODNEY MEDEIROS II, MD, PHD at 14-Aug-2024 08:01:53 AM [facility] ALLERGIES No Allergies Records Found ENCOUNTERS ADMIT/DISCHARGE ACCOUNT NUMBER ADMITTING ENCOUNTER CLASS LOCATION SOURCE 09/10/2024/ 5 [id number] Ambulatory Building:[facility] EPIC 08/13/2024/ 5 [id number] Ambulatory Building:[facility] EPIC 08/13/2024/ 5 [id number] Ambulatory Building:[facility] EPIC 07/15/2024/ 5 [id number] Ambulatory Building:[facility] EPIC 06/17/2024/ 4 [id number] Ambulatory Building:[facility] EPIC 05/17/2024/ 4 [id number] Ambulatory Building:[facility] ENCOUNTER GUARANTOR PAYER SUBSCRIBER SOURCE 09/10/2024 LANA KERNB: [place], [place] [address]Dwq: () Primary Insurance:MEDICAL MUTUALPolicy Number: [id number] e Date:2023-09-25 LANA CHRISTIANINGDOB: [id number] [place] [address] [facility] 08/13/2024 LANA Leavitt DOWNINGDOB: [place], [place] [address]Ohv: () Primary Insurance:MEDICAL MUTUALPolicy Number: [id number] e Date:2023-09-25 LANA CHRISTIANINGDOB: [id number] [place] [address] [facility] EPIC 08/13/2024 LANA Leavitt DOWNINGDOB: [place], [place] [address]Nlq: (HP) Primary Insurance:MEDICAL MUTUALPolicy Number: [id number] e Date:2023-09-25 LANA CHRISTIANINGDOB: [id number] [place] [address] [facility] EPIC 07/15/2024 LANA CHRISTIANINGDOB: [place], [place] [address]Pmt: () Primary Insurance:MEDICAL MUTUALPolicy Number: [id number] e Date:2023-09-25 LANA BOWDENDOB: [id number] [place] [address] [facility] EPIC 06/17/2024 LANA CHRISTIANINGDOB: [place], [place] [address]Cms: () Primary Insurance:MEDICAL MUTUALPolicy Number: [id number] e Date:2023-09-25 LANA BOWDENDOB: [id number] [place] [address] [facility] EPIC 05/17/2024 LANA CHRISTIANINGDOB: [place], [place] [address]Irh: () Primary Insurance:MEDICAL MUTUALPolicy Number: [id number] e Date:2023-09-25 LANA CHRISTIANINGDOB: [id number] [place] [address] [facility] EPIC
[2024-09-26 09:24] LABS: Basophils Percent Auto 0.2 % (0.2-2.0); Eosinophils Absolute Auto 0.1 10^3/uL (0.0-0.7); Eosinophils Percent Auto 0.6 % (0.9-7.0); Hematocrit 34.4 % (36.0-48.0); Hemoglobin 11.4 g/dL (12.0-16.0); Immature Granulocytes Abs Auto 0.07 10^3/uL (0.00-0.03); Immature Granulocytes Pct Auto 0.9 % (0.0-0.5); Lymphocytes Absolute Auto 1.1 10^3/uL (1.2-3.8); Lymphocytes Percent Auto 13.5 % (20.5-60.0); Mean Corpuscular HGB Conc 33.1 g/dL (29.9-35.2); Mean Corpuscular Hemoglobin 30.1 pg (26.7-34.0); Mean Corpuscular Volume 90.8 fL (81.0-99.0); Mean Platelet Volume 9.3 fL (9.5-13.5); Monocytes Absolute Auto 0.5 10^3/uL (0.3-0.8); Monocytes Percent Auto 6.4 % (1.7-12.0); Neutrophils Absolute Auto 6.4 10^3/uL (1.4-6.5); Neutrophils Percent Auto 78.4 % (43.0-75.0); Platelet Count 291 10^3/uL (150-450); Red Blood Count 3.79 10^6/uL (4.20-5.40); Red Cell Distribution Width 13.9 % (11.0-15.0); White Blood Count 8.2 10^3/uL (4.0-11.0)
[2024-09-26 09:29] LABS: Glucose 1 Hour 99 mg/dL (<130)
== END 2024-09-26 08:02 | disposition home or self-care (01) ==
LOC: LAB 08:02
PROVIDERS: PCP Family Medicine; Visit Provider Physician Assistant
DX: Z13.1 Encounter for screening for diabetes mellitus (principal)
CPT/HCPCS: 36415; 82950; 85025

== ENCOUNTER 2024-11-12 08:00 | Outpatient (OUT) | payer OTHER, SELFPAY ==
--- NOTE | 2024-11-12 08:00 | CA_ITS ---
Patient Name: LANA BOWDEN MR#: [id number] : 1995 Exam Date: 11/12/2024 Ordering Doctor: DR SAMMY PÉREZ . ECHOCARDIOGRAM REPORT PROCEDURE: CA ECHO DOPPLER COMPLETE INDICATIONS: Palpitations, 34 weeks COMPARISON: None. DESCRIPTION: COMPLETE ECHOCARDIOGRAM Real-time transthoracic echocardiography with 2D, M-mode, spectral and color flow Doppler performed. QUALITY: Technical quality was good. LEFT VENTRICLE: Normal chamber size. Thickened septal wall. Systolic function is normal. LV EF: Normal left ventricular ejection fraction, (65%). DIASTOLIC: Normal diastolic function. ATRIAL SEPTUM: LEFT ATRIUM: Normal chamber size. RIGHT ATRIUM: Normal chamber size. RIGHT VENTRICLE: Normal chamber size. Normal right ventricular systolic function. TRICUSPID VALVE: Normal mobility and thickness. No stenosis with no regurgitation. Unable to assess right-sided pressures due to lack of measurable tricuspid regurgitation. MITRAL VALVE: Normal mobility and thickness. No mitral valve prolapse. No evidence of mitral valve stenosis. There is no mitral annular calcification. Trivial mitral regurgitation. AORTIC VALVE: Normal trileaflet appearance. No visible sclerosis. Normal leaflet mobility. No evidence of aortic valve stenosis. No aortic regurgitation. AORTIC ROOT: Normal diameter and appearance, measuring 2.7 cm. Ascending aorta is normal in size, measuring 2.7 cm. PULMONIC VALVE: Normal thickness and mobility. No stenosis. Trivial regurgitation. PERICARDIUM: No evidence of pericardial effusion. IVC: Collapses with inspirations. IVC is normal in size. PLEURA: CONCLUSION: 1. Normal ventricular size and systolic function. LVEF is 65%. 2. Normal diastolic function. 3. No significant valvular dysfunction. 4. Unable to assess right-sided pressures due to lack of measurable tricuspid regurgitation. Adult Echocardiography Procedure Report Left Ventricle LVEDD (3.7 - 5.6 cm): 4.03 cm LVESD (2.2 - 4.0 cm): 2.38 cm LVIVS thickness (0.6 - 1.2 cm): 1.17 cm LVPW thickness (0.5 - 1.0 cm): 1.01 cm e': 0.15 m/s E - e': 5.48 LVOT Max Gradient: 2.97 mm[Hg] LVOT Area (cm2): 0.86 m/s Peak Velocity (LVOT): 0.86 m/s Mean Velocity (LVOT): 0.57 m/s LVOT Diameter 2.29 cm Left Atrium LA Volume Index (2D A2C): 22.51 ml/m2 Left Atrium Systolic Dimension: 4.17 cm Mitral Valve MV E to A Ratio: 1.51 Mitral Valve A-Wave Peak Velocity: 0.56 m/s Mitral Valve E-Wave Peak Velocity: 0.85 m/s Right Ventricle Aorta AO Root Diam: 2.67 cm Ascending Ao Diam: 2.71 cm Aortic Valve AoV Area (Peak Stephan): 2.78 cm2, 2.78 cm2 AoV Area (VTI): 2.62 cm2, 2.62 cm2 Peak Velocity(Antegrade Flow): 1.28 m/s Peak Gradient(Antegrade Flow): 6.52 mm[Hg] Mean Velocity(Antegrade Flow): 0.84 m/s Mean Gradient(Antegrade Flow): 3.27 mm[Hg] Velocity Time Integral: 27.46 cm Tricuspid Valve Pulmonic Valve Mean Gradient: 2.25 mm[Hg] Mean Velocity: 0.69 m/s Peak Velocity: 1.17 m/s, 1.21 m/s Peak Gradient: 5.86 mm[Hg], 5.44 mm[Hg] Right Atrium Right Atrium Systolic Pressure: 46.90 ml, 46.90 ml Dictated by: Gianni Alfaro M.D. on 11/12/2024 at 15:16 Approved by: Gianni Alfaro M.D. on 11/12/2024 at 15:20
== END 2024-11-12 08:01 | disposition home or self-care (01) ==
LOC: CARD 08:01
PROVIDERS: PCP Family Medicine; Visit Provider Obstetrics & Gynecology
DX: O26.893 Other specified pregnancy related conditions, third trimester (principal); Z3A.34 34 weeks gestation of pregnancy; R00.2 Palpitations
CPT/HCPCS: 93306

== ENCOUNTER 2024-11-27 20:32 | Outpatient (REF) | payer OTHER, SELFPAY ==
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
--- OUTSIDE RECORDS SUMMARY | 2024-11-27 13:50 | XMS_ITS | Encounter Summary ---
Author Organization [facility] Address [address] [place] [address] Care Team Providers Care X Ray Technologist Name Role Phone Elissa Hartman Unavailable [phone] Alessandra Deluna MD Primary Care Provider [phone] Reason for Visit * Reason Comments Routine Visit Encounter Details Date Type Department Care Team (Late st Contact Info) Description 11/27/2024 1:50 PM EDT Routine [facility] [address] [place] [address] Paulina James PA [address] [facility] [address] [place], [place] [id number] Third trimester ; 36 weeks gestation of Social History Tobacco Use [...] week 12/01/2022 How often do you attend sikh or taoism serv ices? Never 12/01/2022 Do you belong to any clubs o r organizations such as sikh groups, unions, fraternal or athletic groups, or [...] Recorded Patient Health Questionnaire-2 Score 0 12/01/2022 [facility] of Occupat ional Health - Occupational Stress [...] place to sleep or slept in a care home (including now)? No 12/01/2022 Estimated Date of [...] Sign Reading Time Taken Comments Blood Pressure 126/90 11/27/2024 2:04 PM EDT Pulse - - Temperature - - Respiratory Rate - - Oxygen Saturation - - Inhaled Oxygen Concentration - - Weight 121 kg (267 lb 8 oz) 11/27/2024 2:04 PM E DT Height - - Body Mass Index 41.9 12/01/2022 4:12 PM EDT documented in this encounter Progress Notes * AYDEE Diamond - 11/27/2024 1:50 PM EDT Reason for Appointment: Patient ID: Jeniffer [...] Exam Constitutional: Appearance: Normal appearance. She is normal weight. HENT: Head: Normocephalic. Cardiovascular: Rate and Rhythm: Normal rate. Pulses: Normal pulses. Pulmonary: Effort: Pulmonary effort is normal. Breath sounds: Normal breath sounds. Abdominal: Palpations: Abdomen is soft. Musculoskeletal: General: Normal range of motion. Neurological: General: No focal deficit present. Mental Status: She is alert and oriented to person, place, and time. Psychiatric: Mood and Affect: Mood normal. Behavior: Behavior normal. Thought Content: Thought content normal. Judgment: Judgment normal. Vitals and nursing note reviewed. Vitals: Estimated body mass index is 41.9 kg/m?? as calculated from the following: Height as of 12/01/22: 5' 7 . Weight as of this encounter: 267 lb 8 oz. BP: 126/90 Patient's last menstrual period was 03/20/2024. ASSESSMENT & PLAN ICD-10-CM 1. Third trimester Z34.93 CULTURE, GROUP B STREP WITH SUSCEPTIBLITY CULTURE, GROUP B STREP WITH SUSCEPTIBLITY POCT urinalysis dipstick manually resulted 2. 36 weeks gestation of Z3A.36 Patient is doing well but has complaints of being tired and having maternal discomfort due to . Patient verbalized frequent movement and was instructed to perform kick counts three times per day. labor precautions were given, LARC consent was signed/declined, and GBS was obtained. Cervical check was performed and patient is 1cm dilated. Orders Placed This Encounter Procedures CULTURE, GROUP B STREP WITH SUSCEPTIBLITY POCT urinalysis dipstick manually resulted Follow Up: Patient is to return to office in 1 week for routine OB appointment Documented by AYDEE Diamond on behalf of: AYDEE Diamond documented in this encounter Plan of Treatment Upcoming Encounters Date Type Department Care Team (Late st Contact Info) Description 12/04/2024 2:30 PM EDT Routine [facility] [address] [facility] [phone] DouglasStoney stevens, DO [address] [facility] [address] [place], [place] [id number] Scheduled Orders Name Type Priority Associated Diagnoses Orde r Schedule CULTURE, GROUP B STREP WITH SUSCEPTIBLITY Lab Routine Third trimester Expected: 11/27/2024, Expires: 11/27/2025 documented as of this encounter Procedures Procedure Name Priority Date/Time Associated Diagnosis Comments POCT URINALYSIS DIPSTICK Routine 11/27/2024 2:12 PM EDT Third trimester documented in this encounter Results * (ABNORMAL) POCT urinalysis dipstick manually resulted (11/27/2024 2:12 PM EDT) Color, UA Yellow Clarity, UA Clear Glucose, UA Negative Negative - 2000(110) ++++ mg/dL Bilirubin, UA Negative Negative - 4(70) +++ mg/dL Ketones, UA Negative Negative - 160(16) ++++ mg/dL Spec Grav, UA 1.015 1 - 1.03 Blood, UA Negative Negative - 50 Leon/mcL pH, UA 7.0 5 - 9 Protein, UA Negative Negative - 2000(20) ++++ mg/dL Urobilinogen, UA 0.2 0.2 - 12 mg/dL Leukocytes, UA Positive Negative - 500+++ Lourdes/mcL Comment:small Nitrite, UA Negative Negative - Positive Urine 11/27/2024 2:12 PM EDT Paulina BAJWA POINT OF CARE TEST ENTER/EDIT OR DERABLES Final Result documented in this encounter Visit Diagnoses Diagnosis Third trimester state, incidental 36 weeks gestation of documented in this encounter Care Teams X Ray Technologist Relationship Specialty Start Date End Date Alessandra Deluna MD [address] [place] [address] PCP - General Family Medicine 12/01/22 Elissa Hartman PA [address] [place] [address] Physician Hydraulic Controls Technician Family Medicine 12/01/22 documented as of this encounter
--- OUTSIDE RECORDS SUMMARY | 2024-11-27 20:35 | XMS_ITS | Encounter Summary ---
Author Organization [facility] Address [address] [place] [address] Care Team Providers Care Commercial Litigation Associate Name Role Phone Elissa Hartman Unavailable [phone] Alessandra Deluna MD Primary Care Provider [phone] Encounter Details Date Type Department Care Team (Late st Contact Info) Description 07/26/2024 Orders Only [facility] [address] [facility] [place] [address] Brandie Estes MA [address] [facility] [place] [address] Social History Tobacco Use Types Packs/Day Years [...] week 12/01/2022 How often do you attend protestant or hoahaoism serv ices? Never 12/01/2022 Do you belong to any clubs o r organizations such as protestant groups, unions, fraternal or athletic groups, or [...] Recorded Patient Health Questionnaire-2 Score 0 12/01/2022 [facility] of Occupat ional Health - Occupational Stress [...] place to sleep or slept in a senior care (including now)? No 12/01/2022 Estimated Date of Delivery Comme nts Yes 12/25/2024 Based on last me nstrual period of 03/20/2024 Sex and Gender Information Value Date Recorded Sex Assigned at Female 11/17/2022 9:01 AM EDT Legal Sex Female 7:08 PM EDT Gender Identity Female 11/17/2022 9:01 AM EDT Sexual Orientation Straight 11/17/2022 9: 01 AM EDT documented as of this encounter Plan of Treatment Upcoming Encounters Date Type Department Care Team (Late st Contact Info) Description 12/04/2024 2:30 PM EDT Routine [facility] [address] [facility] [address] Stoney Cole, DO [address] [facility] [place] [address] documented as of this encounter Procedures Procedure Name Priority Date/Time Associated Diagnosis Comments PAP SMEAR Routine 07/15/2024 12:00 AM EST documented in this encounter Results * Pap Smear (07/15/2024 12:00 AM EST) Swab Cervical swab / Unknown us Paulina BAJWA LAB CYTOLOGY ORDERABLES Final Re sult EXTERNAL LAB documented in this encounter Visit Diagnoses Not on filedocumented in this encounter Care Teams Commercial Litigation Associate Relationship Specialty Start Date End Date Alessandra Deluna MD [address] [place] [address] PCP - General Family Medicine 12/01/22 Elissa Hartman PA [address] [place] [address] Physician Bindery Machine Setter Family Medicine 12/01/22 documented as of this encounter
--- OUTSIDE RECORDS SUMMARY | 2024-11-27 20:35 | XMS_ITS | Encounter Summary ---
Author Organization [facility] Address [address] [place] [address] Care Team Providers Care Vocal Music Instructor Name Role Phone Elissa Hartman Unavailable [phone] Alessandra Deluna MD Primary Care Provider [phone] Encounter Details Date Type Department Care Team (Latest Contact Info) Description 11/13/2024 Travel Social History Tobacco Use Types Packs/Day Years [...] week 12/01/2022 How often do you attend yazidi or christian serv ices? Never 12/01/2022 Do you belong to any clubs o r organizations such as yazidi groups, unions, fraternal or athletic groups, or [...] Patient Health Questionnaire-2 Score 0 12/01/2022 [facility] - Occupational Stress Questionnaire Answer Date Recorded [...] PM EDT Routine [facility] [address] [facility] [place] [phone] Stoney Cole, [address] [facility] [place] [address] documented as of this encounter Visit Diagnoses Not on filedocumented in this encounter Care Teams Vocal Music Instructor Relationship Specialty Start Date End Date Alessandra Deluna MD [address] [place] [address] PCP - General Family Medicine 12/01/22 Elissa Hartman PA [address] [place] [address] Physician Manager Valuation Family Medicine 12/01/22 documented as of this encounter
--- OUTSIDE RECORDS SUMMARY | 2024-11-27 20:35 | XMS_ITS | Encounter Summary ---
Author Organization [facility] Address [address] [place] [address] Care Team Providers Care County Program Technician Name Role Phone Elissa Hartman Unavailable [phone] Alessandra Deluna MD Primary Care Provider [phone] Encounter Details Date Type Department Care Team (Latest Contact Info) Description 11/21/2024 Travel Social History Tobacco Use Types Packs/Day [...] week 12/01/2022 How often do you attend temple or jainism serv ices? Never 12/01/2022 Do you belong to any clubs o r organizations such as temple groups, unions, fraternal or athletic groups, or [...] Recorded Patient Health Questionnaire-2 Score 0 12/01/2022 [facility] - Occupational Stress Questionnaire Answer Date Recorded [...] place to sleep or slept in a group home (including now)? No 12/01/2022 Estimated Date [...] PM EDT Routine [facility] [address] [place] [phone] Stoney Cole, [address] [facility] [place] [address] documented as of this encounter Visit Diagnoses Not on filedocumented in this encounter Care Teams County Program Technician Relationship Specialty Start Date End Date Alessandra Deluna MD [address] [place] [address] PCP - General Family Medicine 12/01/22 Elissa Hartman PA [address] [place] [address] Physician Hammer Fitter Family Medicine 12/01/22 documented as of this encounter
--- OUTSIDE RECORDS SUMMARY | 2024-11-27 20:35 | XMS_ITS | Encounter Summary ---
Author Organization [facility] Address [address] [place] [address] Care Team Providers Care Sea Shell Gatherer Name Role Phone Elissa Hartman Unavailable [phone] Alessandra Deluna MD Primary Care Provider [phone] Encounter Details Date Type Department Care Team (Late st Contact Info) Description 08/05/2024 Abstract [facility] OB [address] [place] [address] Stoney Cole, DO [address] [place] [place], [facility] Social History Tobacco Use Types Packs/Day Years [...] week 12/01/2022 How often do you attend judaism or presybeterian serv ices? Never 12/01/2022 Do you belong to any clubs o r organizations such as judaism groups, unions, fraternal or athletic groups, or [...] Recorded Patient Health Questionnaire-2 Score 0 12/01/2022 [facility] - Occupational Stress Questionnaire Answer Date Recorded [...] place to sleep or slept in a nursing home (including now)? No 12/01/2022 Estimated Date [...] PM EDT Routine [facility] [address] [facility] [place] [address] Stoney Cole, [address] [place] [address] documented as of this encounter Visit Diagnoses Not on filedocumented in this encounter Care Teams Sea Shell Gatherer Relationship Specialty Start Date End Date Alessandra Deluna MD [address] [place] [address] PCP - General Family Medicine 12/01/22 Elissa Hartman PA [address] [place] [address] Physician Portable Power Tool Repairer Family Medicine 12/01/22 documented as of this encounter
--- OUTSIDE RECORDS SUMMARY | 2024-11-27 20:35 | XMS_ITS | Encounter Summary ---
Author Organization [facility] Address [address] [place] [address] Care Team Providers Care Mobile Developer Name Role Phone Elissa Hartman Unavailable [phone] Alessandra Deluna MD Primary Care Provider [phone] Encounter Details Date Type Department Care Team (Late st Contact Info) Description 05/17/2024 Abstract [facility] OB [address] [place] [address] Stoney Cole, DO [address] [place], [facility] Social History Tobacco Use Types Packs/Day [...] How often do you attend yazidi or holiness serv ices? Never 12/01/2022 Do you belong [...] Recorded Patient Health Questionnaire-2 Score 0 12/01/2022 [facility] - Occupational Stress Questionnaire Answer Date Recorded [...] place to sleep or slept in a snf (including now)? No 12/01/2022 Estimated Date of [...] PM EDT Routine [facility] [address] [facility] [place] [address] Stoney Cole, [address] [facility] [place] [address] documented as of this encounter Visit Diagnoses Not on filedocumented in this encounter Care Teams Mobile Developer Relationship Specialty Start Date End Date Alessandra Deluna MD [address] [place] [address] PCP - General Family Medicine 12/01/22 Elissa Hartman PA [address] [place] [address] Physician Seamless Tube Drawer Family Medicine 12/01/22 documented as of this encounter
--- OUTSIDE RECORDS SUMMARY | 2024-11-27 20:35 | XMS_ITS | Encounter Summary ---
Author Organization [facility] Address [address] [place] [address] Care Team Providers Care Orthopedic Shoe Fitter Name Role Phone Elissa Hartman Unavailable [phone] Alessandra Deluna MD Primary Care Provider [phone] Encounter Details Date Type Department Care Team (Late st Contact Info) Description 07/17/2024 Abstract [facility] OB [address] [place] [address] Stoney Cole, DO [address] [place], [place] [id number] Social History Tobacco Use Types Packs/Day Years [...] week 12/01/2022 How often do you attend episcopal or anglican serv ices? Never 12/01/2022 Do you belong to any clubs o r organizations such as episcopal groups, unions, fraternal or athletic groups, or [...] Recorded Patient Health Questionnaire-2 Score 0 12/01/2022 [facility] - Occupational Stress Questionnaire Answer [...] PM EDT Routine [facility] [address] [facility] [place] [address] Stoney Cole, [address] [facility] [place] [address] documented as of this encounter Visit Diagnoses Not on filedocumented in this encounter Care Teams Orthopedic Shoe Fitter Relationship Specialty Start Date End Date Alessandra Deluna MD [address] [place] [address] PCP - General Family Medicine 12/01/22 Elissa Hartman PA [address] [place] [address] Physician Greeting Card Writer Family Medicine 12/01/22 documented as of this encounter
--- OUTSIDE RECORDS SUMMARY | 2024-11-27 20:35 | XMS_ITS | Encounter Summary ---
Author Organization [facility] Address [address] [place] [address] Care Team Providers Care Renewals Specialist Name Role Phone Elissa Hartman Unavailable [phone] Alessandra Deluna MD Primary Care Provider [phone] Encounter Details Date Type Department Care Team (Late st Contact Info) Description 11/20/2024 Bamboo flowsheet [facility] [address] [place] [address] Stoney Cole, DO [address] [facility] [address] [place], [facility]11 Social History Tobacco Use Types [...] week 12/01/2022 How often do you attend voodoo or buddhist serv ices? Never 12/01/2022 Do you belong to any clubs o r organizations such as voodoo groups, unions, fraternal or athletic groups, or [...] Recorded Patient Health Questionnaire-2 Score 0 12/01/2022 [facility] - Occupational Stress Questionnaire Answer Date Recorded [...] place to sleep or slept in a alf (including now)? No 12/01/2022 Estimated Date of [...] PM EDT Routine [facility] [address] [place] [address] Stoney Cole, DO [address] [facility] [place] [address] documented as of this encounter Visit Diagnoses Not on filedocumented in this encounter Care Teams Renewals Specialist Relationship Specialty Start Date End Date Alessandra Deulna MD [address] [place] [address] PCP - General Family Medicine 12/01/22 Elissa Hartman PA [address] [place] [address] Physician Chiropractic Practice Manager Family Medicine 12/01/22 documented as of this encounter
--- OUTSIDE RECORDS SUMMARY | 2024-11-27 20:35 | XMS_ITS | Clinical Summary ---
Author Organization [facility] Address [address] [place] [address] Care Team Providers Care Drawing In Hand Name Role Phone Elissa Hartman Unavailable [phone] Alessandra Deluna MD Primary Care Provider [phone] Allergies Active Allergy Reactions Criticality Noted Date Comments Doxycycline Hives,Itching,Photos ens itivity,Rash Low 2021 Sun sensitivity Phentermine Anxiety,Palpitations ,Sh ortness of breath High 01/25/2022 Other Reaction(s): heart racing Other Reaction(s): Dizziness or Vertigo Spironolactone Hives,Itching,Photos ens itivity 2021 Sun sensitivity Medications FLUoxetine (PROzac) 10 MG capsule Take 10 mg by mouth Daily 05/28/2024 Active Active Problems Problem Noted Date Diagnosed Date 12 weeks gestation of 06/17/2024 Second trimester 06/17/2024 Estimated Date of Delivery Comme nts Yes 12/25/2024 Based on last me nstrual period of 03/20/2024 Encounters Date Type Department Care Team Description 11/27/2024 1:50 PM EDT Routine [facility] [address] [place] [address] Paulina James PA Third trimester ; 36 weeks gestation of 11/27/2024 Bamboo flowsheet [facility] [address] [place] [address] Paulina James PA 11/21/2024 Travel 11/20/2024 11:10 AM EDT Routine [facility] [address] [place] [address] [place] [address] Sammy Cole, DO Third trimester ; 35 weeks gestation of 11/20/2024 Bamboo flowsheet [facility] [address] [place] [address] [place] [address] Sammy Cole, DO 11/13/2024 Travel 11/12/2024 Clinisync Result Encounter [facility] External Department Unsolicited Sammy Cole, DO 11/06/2024 8:30 AM EDT Routine [facility] [address] [place] [address] [place] [address] Janis Maradiaga, ASH Third trimester ; 32 weeks gestation of 11/06/2024 Bamboo flowsheet [facility] [address] [place] [address] [place] [address] Janis Maradiaga, ASH 10/30/2024 Travel 10/22/2024 8:30 AM EDT Routine [facility] [address] [place] [address] [place] [address] Sammy Cole, DO Third trimester ; Heart palpitations 10/22/2024 8:00 AM EDT Ancillary Procedure [facility] [address] [place] [address] [place] [address] size inconsistent with dates 10/22/2024 Telephone [facility] [address] [place] [address] [place] [address] Marlen Tejeda LPN 10/15/2024 Travel 10/08/2024 10:10 AM EDT Routine [facility] [address] [place] [address] [place] [address] Sammy Cole, DO Third trimester ; 28 weeks gestation of ; size inconsistent with dates 10/08/2024 Bamboo flowsheet [facility] [address] [place] [address] [place] [address] Sammy Cole DO 10/01/2024 Travel 09/26/2024 9:30 AM EDT Ancillary Procedure [facility] [address] [place] [address] Encounter for follow-up ultrasound of anatomy 09/26/2024 Clinisync Result Encounter [facility] External Department Unsolicited Paulina Jamse PA 09/21/2024 Travel 09/10/2024 10:30 AM EDT Routine [facility] [address] [place] [address] Paulina James PA 24 weeks gestation of ; Second trimester ; Diabetes mellitus screening 09/10/2024 Bamboo flowsheet [facility] [address] [place] [address] Paulina James PA 09/03/2024 Travel 08/29/2024 Telephone [facility] [address] [place] [address] Sammy Cole DO from Last 3 Months Family History Medical History Relation Name Comments Asthma Father Jesse Depression Mother Maura Hypertension Mother Maura Heart disease Paternal Grandfather Roger Relation Name Status Comments Father Jesse Mother Maura Paternal Grandfather Roger Social History Tobacco Use Types Packs/Day Years Used Date Smoking Tobacco: Never Smokeless Tobacco: Never Tobacco Cessation:Counseling Given: Not Answered Alcohol Use Standard Drinks/Week Comments Not Currently [...] week 12/01/2022 How often do you attend mormonism or zoroastrianism serv ices? Never 12/01/2022 Do you belong to any clubs o r organizations such as mormonism groups, unions, fraternal or athletic groups, or [...] Patient Health Questionnaire-2 Score 0 12/01/2022 [facility] - Occupational [...] place to sleep or slept in a retirement (including now)? No 12/01/2022 Estimated Date of Delivery Comme nts Yes 12/25/2024 Based on last me nstrual period of 03/20/2024 Sex and Gender Information Value Date Recorded Sex Assigned at Female 11/17/2022 9:01 AM EDT Legal Sex Female 7:08 PM EDT Gender Identity Female 11/17/2022 9:01 AM EDT Sexual Orientation Straight 11/17/2022 9: 01 AM EDT Last Filed Vital Signs Vital Sign Reading Time Taken Comments Blood Pressure 126/90 11/27/2024 2:04 PM EDT Pulse 75 12/01/2022 4:12 PM EDT Temperature 36.9 C (98.4 F) 12/01/2022 4:12 PM EDT Respiratory Rate - - Oxygen Saturation 98% 12/01/2022 4:12 PM EDT Inhaled Oxygen Concentration - - Weight 121 kg (267 lb 8 oz) 11/27/2024 2:04 PM E DT Height 170.2 cm (5' 7 ) 12/01/2022 4:12 PM EDT Body Mass Index 41.9 12/01/2022 4:12 PM EDT Plan of Treatment Upcoming Encounters Date Type Department Care Team (Late st Contact Info) Description 12/04/2024 2:30 PM EDT Routine [facility] [address] [place] [phone] Sammy Cole, DO [address] [place] [address] Health Maintenance Due Date Last Done Comments Influenza Vaccine (Season Ended) 2025 03/09/2021, 04/04/2017, 04/08/2016 Procedures Procedure Name Priority Date/Time Associated Diagnosis Comments POCT URINALYSIS DIPSTICK Routine 11/27/2024 2:12 PM EDT Third trimester POCT URINALYSIS DIPSTICK Routine 11/20/2024 11:22 AM EDT Third trimester CA ECHO DOPPLER COMPLETE 11/12/2024 3:20 PM EDT POCT URINALYSIS DIPSTICK Routine 11/06/2024 8:39 AM EDT Third trimester US OB FOLLOW UP TRANSABDOMINAL APPROACH Routine 10/22/2024 8:31 AM EDT size inconsistent with dates POCT URINALYSIS DIPSTICK Routine 10/08/2024 10:26 AM EDT Third trimester US OB LIMITED 1+ FETUSES Routine 09/26/2024 10:08 AM EDT Encounter for follow-up ultrasound of anatomy ALL CBC WITH AUTO DIFF Routine 9:11 AM EDT GLUCOSE 1 HOUR Routine 09/26/2024 9:11 AM EDT POCT URINALYSIS DIPSTICK Routine 09/10/2024 10:45 AM EDT 24 weeks gestation of Second trimester Diabetes mellitus screening from Last 3 Months Results * (ABNORMAL) POCT urinalysis dipstick manually resulted (11/27/2024 2:12 PM EDT) Only the most recent of5 resultswithin the time period is included. Color, UA Yellow Clarity, UA Clear Glucose, UA Negative Negative - 1999(110) ++++ mg/dL Bilirubin, UA Negative Negative - [...] CARE TEST ENTER/EDIT OR DERABLES Final Result * CA ECHO DOPPLER COMPLETE (11/12/2024 3:20 PM EDT) Anatomical Region Laterality Modality Other 11/12/2024 3:20 PM EDT Narrative 11/12/2024 3:21 [place] [address] Cardiology Report Signed Patient: JENIFFER GARNETT MR#: [id number] : 1995 Acct:[id number] Age/Sex: 29 / F ADM Date: 11/12/24 Loc: CARD Attending Dr: Sammy Cole D.O. Ordering Physician: Sammy Cole D.O. Date of Service: 11/12/24 Procedure(s): CA echo doppler complete Accession Number(s): [id number] cc: Sammy Cole D.O.; Julia Miramontes D.O. Patient Name: JENIFFER GARNETT MR#: [id number] : 1995 Exam Date: 11/12/2024 Ordering Doctor: DR SAMMY DOUGLAS . ECHOCARDIOGRAM REPORT PROCEDURE: CA ECHO DOPPLER COMPLETE INDICATIONS: Palpitations, 34 weeks COMPARISON: None. DESCRIPTION: COMPLETE ECHOCARDIOGRAM Real-time transthoracic echocardiography with 2D, M-mode, spectral and color flow Doppler performed. QUALITY: Technical quality was good. LEFT VENTRICLE: Normal chamber size. Thickened septal wall. Systolic function is normal. LV EF: Normal left ventricular ejection fraction, (65%). DIASTOLIC: Normal diastolic function. ATRIAL SEPTUM: LEFT ATRIUM: Normal chamber size. RIGHT ATRIUM: Normal chamber size. RIGHT VENTRICLE: Normal chamber size. Normal right ventricular systolic function. TRICUSPID VALVE: Normal mobility and thickness. No stenosis with no regurgitation. Unable to assess right-sided pressures due to lack of measurable tricuspid regurgitation. MITRAL VALVE: Normal mobility and thickness. No mitral valve prolapse. No evidence of mitral valve stenosis. There is no mitral annular calcification. Trivial mitral regurgitation. AORTIC VALVE: Normal trileaflet appearance. No visible sclerosis. Normal leaflet mobility. No evidence of aortic valve stenosis. No aortic regurgitation. AORTIC ROOT: Normal diameter and appearance, measuring 2.7 cm. Ascending aorta is normal in size, measuring 2.7 cm. PULMONIC VALVE: Normal thickness and mobility. No stenosis. Trivial regurgitation. PERICARDIUM: No evidence of pericardial effusion. IVC: Collapses with inspirations. IVC is normal in size. PLEURA: CONCLUSION: 1. Normal ventricular size and systolic function. LVEF is 65%. 2. Normal diastolic function. 3. No significant valvular dysfunction. 4. Unable to assess right-sided pressures due to lack of measurable tricuspid regurgitation. Adult Echocardiography Procedure Report Left Ventricle LVEDD (3.7 - 5.6 cm): 4.03 cm LVESD (2.2 - 4.0 cm): 2.38 cm LVIVS thickness (0.6 - 1.2 cm): 1.17 cm LVPW thickness (0.5 - 1.0 cm): 1.01 cm e': 0.15 m/s E - e': 5.48 LVOT Max Gradient: 2.97 mm[Hg] LVOT Area (cm2): 0.86 m/s Peak Velocity (LVOT): 0.86 m/s Mean Velocity (LVOT): 0.57 m/s LVOT Diameter 2.29 cm Left Atrium LA Volume Index (2D A2C): 22.51 ml/m2 Left Atrium Systolic Dimension: 4.17 cm Mitral Valve MV E to A Ratio: 1.51 Mitral Valve A-Wave Peak Velocity: 0.56 m/s Mitral Valve E-Wave Peak Velocity: 0.85 m/s Right Ventricle Aorta AO Root Diam: 2.67 cm Ascending Ao Diam: 2.71 cm Aortic Valve AoV Area (Peak Stephan): 2.78 cm2, 2.78 cm2 AoV Area (VTI): 2.62 cm2, 2.62 cm2 Peak Velocity(Antegrade Flow): 1.28 m/s Peak Gradient(Antegrade Flow): 6.52 mm[Hg] Mean Velocity(Antegrade Flow): 0.84 m/s Mean Gradient(Antegrade Flow): 3.27 mm[Hg] Velocity Time Integral: 27.46 cm Tricuspid Valve Pulmonic Valve Mean Gradient: 2.25 mm[Hg] Mean Velocity: 0.69 m/s Peak Velocity: 1.17 m/s, 1.21 m/s Peak Gradient: 5.86 mm[Hg], 5.44 mm[Hg] Right Atrium Right Atrium Systolic Pressure: 46.90 ml, 46.90 ml Dictated by: Oly Peace M.D. on 11/12/2024 at 15:16 Approved by: Oly Peace M.D. on 11/12/2024 at 15:20 Dictated By: OLY PEACE Signed By: 11/12/24 1521 DD/ 1520 TD/TT: Order Editor: Procedure Note Radiology, Radiologist, MD - 11/12/2024 [place] [address] Cardiology Report Signed Patient: JENIFFER GARNETTMR#: [id number] : 1995Acct:[id number] Age/Sex: 29 FADM Date: 11/12/24 Loc: CARD Attending Dr: Sammy Cole D.O. Ordering Physician: Sammy Cole D.O. Date of Service: 11/12/24 Procedure(s): CA echo doppler complete Accession Number(s): [id number] cc: Sammy Cole D.O.; Julia Miramontes D.O. Patient Name: JENIFFER GARNETT MR#: [id number] : 1995 Exam Date: 11/12/2024 Ordering Doctor: DR SAMMY COLE . ECHOCARDIOGRAM REPORT PROCEDURE: CA ECHO DOPPLER COMPLETE INDICATIONS: Palpitations, 34 weeks COMPARISON: None. DESCRIPTION: COMPLETE ECHOCARDIOGRAM Real-time transthoracic echocardiography with 2D, M-mode, spectral and color flow Dopplerperformed. QUALITY: Technical quality was good. LEFT VENTRICLE: Normal chamber size. Thickened septal wall. Systolic function is normal. LV EF: Normal left ventricular ejection fraction, (65%). DIASTOLIC: Normal diastolic function. ATRIAL SEPTUM: LEFT ATRIUM: Normal chamber size. RIGHT ATRIUM: Normal chamber size. RIGHT VENTRICLE: Normal chamber size. Normal right ventricularsystolic function. TRICUSPID VALVE: Normal mobility and thickness. No stenosis with no regurgitation. Unable to assess right-sided pressures due to lack of measurable tricuspid regurgitation. MITRAL VALVE: Normal mobility and thickness. No mitral valve prolapse.No evidence of mitral valve stenosis. There is no mitral annularcalcification. Trivial mitral regurgitation. AORTIC VALVE: Normal trileaflet appearance. No visible sclerosis.Normal leaflet mobility. No evidence of aortic valve stenosis. No aortic regurgitation. AORTIC ROOT: Normal diameter and appearance, measuring 2.7 cm.Ascending aorta is normal in size, measuring 2.7 cm. PULMONIC VALVE: Normal thickness and mobility. No stenosis. Trivial regurgitation. PERICARDIUM: No evidence of pericardial effusion. IVC: Collapses with inspirations. IVC is normal in size. PLEURA: CONCLUSION: 1. Normal ventricular size and systolic function. LVEF is 65%. 2. Normal diastolic function. 3. No significant valvular dysfunction. 4. Unable to assess right-sided pressures due to lack of measurabletricuspid regurgitation. Adult Echocardiography Procedure Report Left Ventricle LVEDD (3.7 - 5.6 cm): 4.03 cm LVESD (2.2 - 4.0 cm): 2.38 cm LVIVS thickness (0.6 - 1.2 cm): 1.17 cm LVPW thickness (0.5 - 1.0 cm): 1.01 cm e': 0.15 m/s E - e': 5.48 LVOT Max Gradient: 2.97 mm[Hg] LVOT Area (cm2): 0.86 m/s Peak Velocity (LVOT): 0.86 m/s Mean Velocity (LVOT): 0.57 m/s LVOT Diameter 2.29 cm Left Atrium LA Volume Index (2D A2C): 22.51 ml/m2 Left Atrium Systolic Dimension: 4.17 cm Mitral Valve MV E to A Ratio: 1.51 Mitral Valve A-Wave Peak Velocity: 0.56 m/s Mitral Valve E-Wave Peak Velocity: 0.85 m/s Right Ventricle Aorta AO Root Diam: 2.67 cm Ascending Ao Diam: 2.71 cm Aortic Valve AoV Area (Peak Stephan): 2.78 cm2, 2.78 cm2 AoV Area (VTI): 2.62 cm2, 2.62 cm2 Peak Velocity(Antegrade Flow): 1.28 m/s Peak Gradient(Antegrade Flow): 6.52 mm[Hg] Mean Velocity(Antegrade Flow): 0.84 m/s Mean Gradient(Antegrade Flow): 3.27 mm[Hg] Velocity Time Integral: 27.46 cm Tricuspid Valve Pulmonic Valve Mean Gradient: 2.25 mm[Hg] Mean Velocity: 0.69 m/s Peak Velocity: 1.17 m/s, 1.21 m/s Peak Gradient: 5.86 mm[Hg], 5.44 mm[Hg] Right Atrium Right Atrium Systolic Pressure: 46.90 ml, 46.90 ml Dictated by: Oly Peace M.D. on 11/12/2024 at 15:16 Approved by: Oly Peace M.D. on 11/12/2024 at 15:20 Dictated By: OLY PEACE Signed By:11/12/24 1521 DD/ 1520 TD/TT: Order Editor: us Sammy Douglas DO [facility] Final Result * US OB follow up transabdominal approach (10/22/2024 8:31 AM EDT) Anatomical Region Laterality Modality Body Ultrasound 10/22/2024 7:06 PM EDT Narrative 10/22/2024 7:06 PM EDT EXAM: US OB FOLLOW UP TRANSABDOMINAL APPROACH HISTORY: Inconsistent size. ANA 12/25/2024. COMPARISON: U/S OB 09/26/2024, 08/13/2024 TECHNIQUE: Two-dimensional transabdominal grayscale ultrasound imaging of the pelvis was performed. FINDINGS: Gestation: Single Presentation: Cephalic Cardiac Activity: 155 beats per minute Placental Location: Anterior with no sonographic abnormalities identified. Distance from Placental Tip to Cervix: Not visualized Cervical Length: Not visualized Amniotic Fluid LVP: 4.0 cm MEASUREMENTS: BPD: 7.9 cm EGA: 31 weeks 4 days HC: 29.4 cm EGA: 32 weeks 3 days AC: 27.5 cm EGA: 31 weeks 4 days FL: 6.0 cm EGA: 31 weeks 1 days HC/AC Ratio: 1.07 (0.96-1.15) Gestational age by today's ultrasound is 31 weeks 5 days (+/- 16 days gestation). Estimated Weight: 1778 grams, +/- 267 grams ( 3 lb 15 oz). Weight Percentile for gestational age: 60th IMPRESSION: 1. Single, live intrauterine gestation 30 weeks, 6 days by LMP. Today's ultrasound measurements correlate with a gestational age of 31 weeks 5 days. Interpreted by: Electronically signed by RODNEY GARRISON II, MD, PHD at 22-Oct-2024 07:05:21 PM [facility] Procedure Note Rodney Garrison MD - 10/22/2024 EXAM: US OB FOLLOW UP TRANSABDOMINAL APPROACH HISTORY: Inconsistent size. ANA 12/25/2024. COMPARISON: U/S OB 09/26/2024, 08/13/2024 TECHNIQUE: Two-dimensional transabdominal grayscale ultrasound imaging ofthe pelvis was performed. FINDINGS: Gestation: Single Presentation: Cephalic Cardiac Activity: 155 beats per minute Placental Location: Anterior with no sonographic abnormalitiesidentified. Distance from Placental Tip to Cervix: Not visualized Cervical Length: Not visualized Amniotic Fluid LVP: 4.0 cm MEASUREMENTS: BPD: 7.9 cm EGA: 31 weeks 4 days HC: 29.4 cm EGA: 32 weeks 3 days AC: 27.5 cm EGA: 31 weeks 4 days FL: 6.0 cm EGA: 31 weeks 1 days HC/AC Ratio: 1.07 (0.96-1.15) Gestational age by today's ultrasound is 31 weeks 5 days (+/- 16 daysgestation). Estimated Weight: 1778 grams, +/- 267 grams ( 3 lb 15 oz). Weight Percentile for gestational age: 60th IMPRESSION: 1. Single, live intrauterine gestation 30 weeks, 6 days by LMP. Today'sultrasound measurements correlate with a gestational age of 31 weeks 5days. Interpreted by: Electronically signed by RODNEY GARRISON II, MD, PHD [id number] 07:05:21 PM [facility] us Sammy Douglas DO IMG OB US PROCEDURES Final Resul t * US OB limited 1+ fetuses (09/26/2024 10:08 AM EDT) Anatomical Region Laterality Modality Body Ultrasound 09/27/2024 8:30 AM EDT Narrative 09/27/2024 8:30 AM EDT EXAM: US OB LIMITED 1+ FETUSES HISTORY: Follow up anatomy. COMPARISON: OB ultrasound 08/13/2024. TECHNIQUE: Two-dimensional transabdominal grayscale ultrasound imaging of the pelvis was performed. FINDINGS: Gestation: Single Presentation: Cephalic Cardiac Activity: 144 beats per minute Placental Location: Anterior with no sonographic abnormalities identified. Cervical canal: Not visualized Amniotic Fluid: Appears adequate ANATOMY Four Chamber Heart: Unremarkable LVOT: Unremarkable RVOT: Unremarkable IMPRESSION: 1. Single, live intrauterine gestation 27 weeks, 1 days by LMP. ANA is 12/25/2024. 2. Unremarkable follow-up ultrasound of the outflow tracts. Electronically Signed:Electronically signed by RODNEY GARRISON II, MD, PHD at 27-Sep-2024 08:29:09 AM [facility] Procedure Note Rodney Garrison MD - 09/27/2024 EXAM: US OB LIMITED 1+ FETUSES HISTORY: Follow up anatomy. COMPARISON: OB ultrasound 08/13/2024. TECHNIQUE: Two-dimensional transabdominal grayscale ultrasound imaging ofthe pelvis was performed. FINDINGS: Gestation: Single Presentation: Cephalic Cardiac Activity: 144 beats per minute Placental Location: Anterior with no sonographic abnormalitiesidentified. Cervical canal: Not visualized Amniotic Fluid: Appears adequate ANATOMY Four Chamber Heart: Unremarkable LVOT: Unremarkable RVOT: Unremarkable IMPRESSION: 1. Single, live intrauterine gestation 27 weeks, 1 days by LMP. ANA is12/25/2024. 2. Unremarkable follow-up ultrasound of the outflow tracts. Electronically Signed:Electronically signed by RODNEY GARRISON II, MD, PHDat 27-Sep-2024 08:29:09 AM [facility] us Sammy Douglas DO IM OB US PROCEDURES Final Resul t * GLUCOSE 1 HOUR (09/26/2024 9:11 AM EDT) GLUCOSE 1 HOUR 99 <130 mg/dL [facility] 09/26/2024 9:11 AM EDT 09/26/2024 9:12 AM EDT Narrative [facility] - 09/26/2024 9:30 AM EDT us Paulina BAJWA LAB BLOOD ORDERABLES Final Resul t [facility] * (ABNORMAL) ALL CBC WITH AUTO DIFF (09/26/2024 9:11 AM EDT) Pathologist [facility] TB WBC 8.2 4.0 - 11.0 10 3/uL [facility] TB RBC 3.79(L) 4.20 - 5.40 10 6/uL TBH TBH HGB 11.4(L) 12.0 - 16.0 g/dL TB[facility] TB HCT 34.4(L) 36.0 - 48.0 % [facility] TB MCV 90.8 81.0 - 99.0 fL TBH TB MCH 30.1 26.7 - 34.0 pg TBH TBH MCHC 33.1 29.9 - 35.2 g/dL TB TB RDW 13.9 11.0 - 15.0 % TBH TBH PLT 291 150 - 450 10 3/uL TBH TBH MPV 9.3(L) 9.5 - 13.5 fL TBH NEUTROPHILS PERCENT AUTO 78.4(H) 43.0 - 75.0 % TBH LYMPHOCYTES PERCENT AUTO 13.5(L) 20.5 - 60.0 % TBH MONOCYTES PERCENT AUTO 6.4 1.7 - 12.0 % TBH TBH EO % 0.6(L) 0.9 - 7.0 % TBH BASOPHILS PERCENT AUTO 0.2 0.2 - 2.0 % TBH IMMATURE GRANULOCYTES PCT AUTO 0.9(H) 0.0 - 0.5 % TBH NEUTROPHILS ABSOLUTE AUTO 6.4 1.4 - 6.5 10 3/uL TBH LYMPHOCYTES ABSOLUTE AUTO 1.1(L) 1.2 - 3.8 10 3/uL TBH MONOCYTES ABSOLUTE AUTO 0.5 0.3 - 0.8 10 3/uL TBH TBH EO # 0.1 0.0 - 0.7 10 3/uL TBH BASOPHILS ABSOLUTE AUTO 0.0 0.0 - 0.1 10 3/uL TBH IMMATURE GRANULOCYTES ABS AUTO 0.07(H) 0.00 - 0.03 10 3/uL [facility] 09/26/2024 9:11 AM EDT 09/26/2024 9:12 AM EDT Narrative [facility] - 09/26/2024 9:30 AM EDT Paulina BAJWA [facility] Final Result [facility] from Last 3 Months Insurance [employer] Care Teams Drawing In Hand Relationship Specialty Start Date End Date Alessandra Deluna MD [address] [place] [address] PCP - General Family Medicine 12/01/22 Elissa Hartman PA [address] [place] [address] Physician Price Lister Family Medicine 12/01/22
--- OUTSIDE RECORDS SUMMARY | 2024-11-27 20:35 | XMS_ITS | Encounter Summary ---
Author Organization [facility] Address [address] [place] [address] Care Team Providers Care Sharepoint Application Architect Name Role Phone Elissa Hartman Unavailable [phone] Alessandra Deluna MD Primary Care Provider [phone] Encounter Details Date Type Department Care Team (Late st Contact Info) Description 11/27/2024 Bamboo flowsheet [facility] [address] [place] [phone] Paulina James PA [address] [place], [facility] Social History Tobacco Use Types Packs/Day [...] week 12/01/2022 How often do you attend orthodoxy or scientology serv ices? Never 12/01/2022 Do you belong to any clubs o r organizations such as orthodoxy groups, unions, fraternal or athletic groups, or [...] the money to buy more. Never true 06/08/20 23 Within the past 12 months, t [...] place to sleep or slept in a half-way (including now)? No 12/01/2022 Estimated Date of [...] EDT Routine [facility] [address] [place] [address] Stoney Cole, DO [address] [place] [address] documented as of this encounter Visit Diagnoses Not on filedocumented in this encounter Care Teams Sharepoint Application Architect Relationship Specialty Start Date End Date Alessandra Deluna MD [address] [place] [address] PCP - General Family Medicine 12/01/22 Elissa Hartman PA [address] [place] [address] Physician Nuclear Reactor Operator Family Medicine 12/01/22 documented as of this encounter
--- OUTSIDE RECORDS SUMMARY | 2024-11-27 20:35 | XMS_ITS | Encounter Summary ---
Author Organization [facility] Address [address] [place] [address] Care Team Providers Care Construction Quality Control Manager Name Role Phone Elissa Hartman Unavailable [phone] Keenan Fatima MD Primary Care Provider [phone] Encounter Details Date Type Department Care Team (Late st Contact Info) Description 05/18/2024 Clinisync Result Encounter [facility] External Department Unsolicited Sammy Cole, DO [address] [place], [place] [id number] Social History Tobacco Use Types Packs/Day Years [...] week 12/01/2022 How often do you attend sabianism or nondenominational serv ices? Never 12/01/2022 Do you belong to any clubs o r organizations such as sabianism groups, unions, fraternal or athletic groups, or [...] Questionnaire-2 Score 0 12/01/2022 [facility] - Occupational Stress [...] Description 12/04/2024 2:30 PM EDT Routine [facility] OB [address] [place] [phone] Sammy Cole, DO [address] [place] [address] [place] [address] documented as of this encounter Procedures Procedure Name Priority Date/Time Associated Diagnosis Comments US OB TRANSVAGINAL 05/18/2024 5: 00 AM EST documented in this encounter Results * US OB TRANSVAGINAL (05/18/2024 5:00 AM EST) Anatomical Region Laterality Modality Other 05/18/2024 5:00 AM EST Narrative 05/18/2024 5:03 [place] [address] Ultrasound Report Signed Patient: JENIFFER GARCIA MR#: [id number] : 1995 Acct:[id number] Age/Sex: 29 / F ADM Date: 05/17/24 Loc: [facility] Attending Dr: Sammy Cole D.O. Ordering Physician: Sammy Cole D.O. Date of Service: 05/17/24 Procedure(s): US OB transvaginal Accession Number(s): [id number] cc: Sammy Cole D.O.; KEENAN FATIMA [place] [id number] Patient Name: JENIFFER GARCIA MRN: [id number] date: 1995 Sex: F Assigned Patient Location: [facility] Current Patient Location: Accession/Order Number: [id number] Exam Date: 05/17/2024 08:30 Report Date: 05/18/2024 05:00 At the request of: SAMMY COLE Procedure: US OB transvaginal EXAMINATION: US OB transvaginal HISTORY: MISSED MENSES COMPARISON: No relevant comparison available. FINDINGS: GESTATIONAL SAC: Present and normal appearing. YOLK SAC: Present and normal appearing. POLE: Present and normal appearing. CARDIAC: Present. UTERUS: Normal size and appearance. OVARIES: Right: Corpus lutein cyst. Left: Normal. CERVIX: 3.7 cm in length and closed. CUL-DE-SAC: Normal. OTHER: None. AGE BY LMP: 8 weeks 2 days ANA BY LMP: 12/25/2024 AGE BY US CRL: 8 weeks 2 days ANA BY US CRL: 12/25/2024 US/US OB transvaginal IMPRESSION: 1. Single live intrauterine . Electronically authenticated by: KETAN HENDRICKSON Date: 05/18/2024 05:00 Dictated By: Ketan Hendrickson M.D. Signed By: 05/18/24 0502 DD/ 0500 TD/TT: Weather Observer: Procedure Note Radiology, Radiologist, MD - 05/20/2024 [place] [address] Ultrasound Report Signed Patient: JENIFFER GARCIAMR#: [id number] : 1995Acct:[id number] Age/Sex: 29 / FADM Date: 05/17/24 Loc: [facility] Attending Dr: Sammy Cole D.O. Ordering Physician: Sammy Cole D.O. Date of Service: 05/17/24 Procedure(s): US OB transvaginal Accession Number(s): [id number] cc: Sammy Cole D.O.; KEENAN FATIMA [place] [address] Patient Name: JENIFFER GARCIA MRN: [id number] date: 1995 Sex: F Assigned Patient Location: [facility] Current Patient Location: Accession/Order Number: [id number] Exam Date: 05/17/2024 08:30 Report Date: 05/18/2024 05:00 At the request of: SAMMY COLE Procedure: US OB transvaginal EXAMINATION: US OB transvaginal HISTORY: MISSED MENSES COMPARISON: No relevant comparison available. FINDINGS: GESTATIONAL SAC: Present and normal appearing. YOLK SAC: Present and normal appearing. POLE: Present and normal appearing. CARDIAC: Present. UTERUS: Normal size and appearance. OVARIES: Right: Corpus lutein cyst. Left: Normal. CERVIX: 3.7 cm in length and closed. CUL-DE-SAC: Normal. OTHER: None. AGE BY LMP: 8 weeks 2 days ANA BY LMP: 12/25/2024 AGE BY US CRL: 8 weeks 2 days ANA BY US CRL: 12/25/2024 US/US OB transvaginal IMPRESSION: 1. Single live intrauterine . Electronically authenticated by: KETAN HENDRICKSON Date: 05/18/2024 05:00 Dictated By: Ketan Hendrickson M.D. Signed By:05/18/24 0500 DD/ 0500 TD/TT: Weather Observer: us Sammy Douglas DO [facility] Final Result documented in this encounter Visit Diagnoses Not on filedocumented in this encounter Care Teams Construction Quality Control Manager Relationship Specialty Start Date End Date Keenan Fatima MD [address] [place] [address] PCP - General Family Medicine 12/01/22 Elissa Hartman PA [address] [place] [address] Physician Consulting Technical Manager Family Medicine 12/01/22 documented as of this encounter
== END 2024-11-27 20:33 | disposition home or self-care (01) ==
LOC: LAB 20:32
PROVIDERS: PCP Family Medicine; Visit Provider Physician Assistant
DX: Z34.93 Encounter for supervision of normal pregnancy, unspecified, third trimester (principal)
CPT/HCPCS: 87081

== ENCOUNTER 2024-12-18 00:05 | Inpatient (IN) | payer OTHER, SELFPAY ==
--- OUTSIDE RECORDS SUMMARY | 2024-12-04 14:30 | XMS_ITS | Encounter Summary ---
Author Organization [facility] Address [address] [place] [address] Care Team Providers Care Tire Design Engineer Name Role Phone Elissa Hartman Unavailable [phone] Alessandra Deluna MD Primary Care Provider [phone] Reason for Visit * Reason Comments Routine Visit Encounter Details Date Type Department Care Team (Late st Contact Info) Description 12/04/2024 2:30 PM EDT Routine [facility] OB [address] [place] [address] Stoney Cole DO [address] [facility] [address] [place], [place] [id number] Third trimester ([facility]); 36 weeks gestation of ([facility]) Social History Tobacco Use Types Packs/Day Years [...] week 12/01/2022 How often do you attend hinduism or nondenominational serv ices? Never 12/01/2022 Do you belong to any clubs o r organizations such as hinduism groups, unions, fraternal or athletic groups, or [...] Recorded Patient Health Questionnaire-2 Score 0 12/01/2022 [facility] Occupat ional Health - [...] place to sleep or slept in a usp (including now)? No 12/01/2022 Estimated Date of [...] Sign Reading Time Taken Comments Blood Pressure 122/76 12/04/2024 2:48 PM EDT Pulse - - Temperature - - Respiratory Rate - - Oxygen Saturation - - Inhaled Oxygen Concentration - - Weight 122 kg (269 lb 6.4 oz) 12/04/2024 2:48 PM EDT Height - - Body Mass Index 42.19 12/01/2022 4:12 PM EDT documented in this encounter Progress Notes * Brenda Mcknight LPN - 12/04/2024 2:30 PM EDT Reason for Appointment: Patient ID: Jeniffer Garnett is a 29 y.o. female who presents for Routine Visit Patient presents today for Return OB appointment. MEDICATIONS Current Outpatient Medications Medication Instructions FLUoxetine (PROZAC) 10 mg, Daily ALLERGIES Allergies Allergen Reactions Phentermine Anxiety, Palpitations and Shortness of breath Other Reaction(s): heart racing Other Reaction(s): Dizziness or Vertigo Other Reaction(s): heart racing Other Reaction(s): Dizziness [...] Constitutional: Appearance: Normal appearance. She is well-developed. Genitourinary: Vulva normal. Cardiovascular: Rate and Rhythm: Normal rate and [...] nursing note reviewed. Exam conducted with a academic affairs assistant present. Vitals: Estimated body mass index is 42.19 kg/m?? as calculated from the following: Height as of 12/01/22: 5' 7 . Weight as of this encounter: 269 lb 6.4 oz. BP: 122/76 Patient's last menstrual period was 03/20/2024. ASSESSMENT & PLAN ICD-10-CM 1. Third trimester Z34.93 POCT urinalysis dipstick manually resulted 2. 36 weeks gestation of Z3A.36 POCT urinalysis dipstick manually resulted Return OB: Patient presents today for a routine obstetrics appointment. Patient is currently 37w0d . Patient states she is doing well [...] week for routine OB appointment. Documented by Brenad Mcknight LPN on behalf of: Stoney Cole DO documented in this encounter Plan of Treatment Not on file documented as of this encounter Procedures Procedure Name Priority Date/Time Associated Diagnosis Comments POCT URINALYSIS DIPSTICK Routine 12/04/2024 2:53 PM EDT Third trimester ([facility]) 36 weeks gestation of ([facility]) documented in this encounter Results * (ABNORMAL) POCT urinalysis dipstick manually resulted (12/04/2024 2:53 PM EDT) Color, UA Yellow Clarity, UA Clear Glucose, UA Negative Negative - 2000(110) ++++ mg/dL Bilirubin, UA Negative Negative - 4(70) +++ mg/dL Ketones, UA Negative Negative - 160(16) ++++ mg/dL Spec Grav, UA 1.015 1 - 1.03 Blood, UA Negative Negative - 50 Leon/mcL pH, UA 6.5 5 - 9 Protein, UA Positive Negative - 2000(20) ++++ mg/dL Urobilinogen, UA 1.0 0.2 - 12 mg/dL Leukocytes, UA Negative Negative - 500+++ Lourdes/mcL Nitrite, UA Negative Negative - Positive Urine 12/04/2024 2:53 PM EDT Stoney Cole DO POINT OF CARE TEST ENTER/EDIT OR DERABLES Final Result documented in this encounter Visit Diagnoses Diagnosis Third trimester ([facility]) state, incidental 36 weeks gestation of ([facility]) documented in this encounter Care Teams Tire Design Engineer Relationship Specialty Start Date End Date Alessandra Deluna MD [address] [place] [address] PCP - General Family Medicine 12/01/22 Elissa Hartman PA [address] [place] [address] Physician Spindle Carver Family Medicine 12/01/22 documented as of this encounter
--- OUTSIDE RECORDS SUMMARY | 2024-12-10 13:00 | XMS_ITS | Encounter Summary ---
Author Organization [facility] Address [address] [place] [address] Care Team Providers Care Study Specialist Name Role Phone Elissa Hartman Unavailable [phone] Alessandra Deluna MD Primary Care Provider [phone] Reason for Visit * Reason Comments Routine Visit Encounter Details Date Type Department Care Team (Late st Contact Info) Description 12/10/2024 1:00 PM EDT Routine [facility] OB [address] [place] [address] Paulina James PA [address] [place], [place] [id number] Third trimester ([facility]); 37 weeks gestation of ([facility]) Social History Tobacco Use Types Packs/Day Years [...] week 12/01/2022 How often do you attend restoration or samaritan serv ices? Never 12/01/2022 Do you belong to any clubs o r organizations such as restoration groups, unions, fraternal or athletic groups, or [...] Health Questionnaire-2 Score 0 12/01/2022 [facility] Occup[facility] ional Health - Occupational [...] place to sleep or slept in a mcfp (including now)? No 12/01/2022 Estimated Date of [...] Sign Reading Time Taken Comments Blood Pressure 124/78 12/10/2024 1:14 PM EDT Pulse - - Temperature - - Respiratory Rate - - Oxygen Saturation - - Inhaled Oxygen Concentration - - Weight 123 kg (271 lb) 12/10/2024 1:14 PM EDT Height - - Body Mass Index 42.44 12/01/2022 4:12 PM EDT documented in this encounter Progress Notes * AYDEE Diamond - 12/10/2024 1:00 PM EDT Reason for Appointment: Patient ID: [...] Diagnosis Date Noted 12 weeks gestation of ([facility]) 06/17/2024 Second trimester ([facility]) 06/17/2024 Resolved Ambulatory Problems Diagnosis Date Noted No Resolved Ambulatory Problems Past Medical History: Diagnosis Date Anxiety Depression HISTORY PAST MEDICAL HISTORY SOCIAL HISTORY Past Medical History: Diagnosis Date Anxiety Depression Social History Tobacco Use Smoking status: Never [...] reviewed. Vitals: Estimated body mass index is 42.44 kg/m?? as calculated from the following: Height as of 12/01/22: 5' 7 . Weight as of this encounter: 271 lb. BP: 124/78 Patient's last menstrual period was 03/20/2024. ASSESSMENT & PLAN ICD-10-CM 1. Third trimester ([facility]) Z34.93 POCT urinalysis dipstick manually resulted 2. 37 weeks gestation of ([facility]) Z3A.37 Return OB: Patient presents today for a routine obstetrics appointment. Patient is currently 37w6d . Patient states she is doing well but has complaints of being tired due to current . Patient has verbalizes frequent movement. labor precautions was discussed/given and patient was instructed to perform kick counts three times a day. Pt signed IOL form plan for induction is 12/18/2024. Orders Placed This Encounter Procedures POCT urinalysis dipstick manually resulted Follow Up: Patient is to return to office in 1 week for routine OB appointment. Documented by Brandie Estes MA on behalf of: AYDEE Diamond documented in this encounter Plan of Treatment Not on file documented as of this encounter Procedures Procedure Name Priority Date/Time Associated Diagnosis Comments POCT URINALYSIS DIPSTICK Routine 12/10/2024 1:14 PM EDT Third trimester ([facility]) documented in this encounter Results * POCT urinalysis dipstick manually resulted (12/10/2024 1:14 PM EDT) Color, UA Yellow Clarity, UA Clear Glucose, UA Negative Negative - 2000(110) ++++ mg/dL Bilirubin, UA Negative Negative - 4(70) +++ mg/dL Ketones, UA Negative Negative - 160(16) ++++ mg/dL Spec Grav, UA 1.010 1 - 1.03 Blood, UA Negative Negative - 50 Leon/mcL pH, UA 7.0 5 - 9 Protein, UA Negative Negative - 2000(20) ++++ mg/dL Urobilinogen, UA 0.2 0.2 - 12 mg/dL Leukocytes, UA Moderate Negative - 500+++ Lourdes/mcL Nitrite, UA Negative Negative - Positive Urine 12/10/2024 1:14 PM EDT Paulina BAJWA POINT OF CARE TEST ENTER/EDIT OR DERABLES Final Result documented in this encounter Visit Diagnoses Diagnosis Third trimester ([facility]) state, incidental 37 weeks gestation of ([facility]) documented in this encounter Care Teams Study Specialist Relationship Specialty Start Date End Date Alessandra Deluna MD [address] [place] [address] PCP - General Family Medicine 12/01/22 Elissa Hartman PA [address] [place] [address] Physician Netsuite Developer Family Medicine 12/01/22 documented as of this encounter
--- OUTSIDE RECORDS SUMMARY | 2024-12-10 13:00 | XMS_ITS | Encounter Summary ---
Author Organization [facility] Address [address] [place] [address] Care Team Providers Care Tank Car Mechanic Name Role Phone Elissa Hartman Unavailable [phone] Alessandra Deluna MD Primary Care Provider [phone] Reason for Visit * Reason Comments Routine Visit Encounter Details Date Type Department Care Team (Late st Contact Info) Description 12/10/2024 1:00 PM EDT Routine [facility] OB [address] [facility] [facility] [address] Paulina James PA [address] [place], [place] [id number] Third trimester ([facility]); 37 weeks gestation of ([facility]) Social History Tobacco Use Types Packs/Day [...] week 12/01/2022 How often do you attend mormon or restorationist serv ices? Never 12/01/2022 Do you belong to any clubs o r organizations such as mormon groups, unions, fraternal or athletic groups, or [...] Recorded Patient Health Questionnaire-2 Score 0 12/01/2022 [facility] Occupat ional Health - Occupational [...] place to sleep or slept in a assisted (including now)? No 12/01/2022 Estimated Date of [...] Diagnosis Date Noted 12 weeks gestation of ([facility]) 06/17/2024 Second trimester ([facility]) 06/17/2024 Resolved Ambulatory Problems Diagnosis Date [...] ASSESSMENT & PLAN ICD-10-CM 1. Third trimester ([facility]) Z34.93 POCT urinalysis dipstick manually resulted 2. 37 weeks gestation of ([facility]) Z3A.37 Return OB: Patient presents today [...] Routine 12/10/2024 1:14 PM EDT Third trimester ([facility]) documented in this encounter Results * [...] ([facility]) documented in this encounter Care Teams Tank Car Mechanic Relationship Specialty Start Date End Date Alessandra Deluna MD [address] [place] [id number] PCP - General Family Medicine 12/01/22 12/22/24 Elissa Hartman PA [address] [place] [id number] Physician Utility Bill Collection Clerk Family Medicine 12/01/22 documented as of this encounter
[2024-12-18] VITALS (59 sets, daily range): BP systolic 101–165; BP diastolic 55–106; PULSE 65–111; TEMP 35.7–36.8
--- OUTSIDE RECORDS SUMMARY | 2024-12-18 00:03 | XMS_ITS | Encounter Summary ---
Author Organization [facility] Address [address] [place] [address] Care Team Providers Care Scourer Name Role Phone Elissa Hartman Unavailable [phone] Alessandra Deluna MD Primary Care Provider [phone] Encounter Details Date Type Department Care Team (Late st Contact Info) Description 12/16/2024 Abstract [facility] B[facility] OB [address] [place] [address] [place] [phone] Marlen Tejeda LPN Social History Tobacco Use Types Packs/Day Years [...] How often do you attend orthodoxy or baptist serv ices? Never 12/01/2022 Do you belong [...] Patient Health Questionnaire-2 Score 0 12/01/2022 [facility] of Occupat ional Health - [...] place to sleep or slept in a skilled nursing (including now)? No 12/01/2022 Estimated Date of [...] as of this encounter Plan of Treatment Not on file documented as of this encounter Visit Diagnoses Not on filedocumented in this encounter Care Teams Scourer Relationship Specialty Start Date End Date Alessandra Deluna MD [address] [place] [address] PCP - General Family Medicine 12/01/22 Elissa Hartman PA [address] [place] [address] Physician Litigation Services Manager Family Medicine 12/01/22 documented as of this encounter
--- OUTSIDE RECORDS SUMMARY | 2024-12-18 00:03 | XMS_ITS | Encounter Summary ---
Author Organization [facility] Address [address] [place] [address] Care Team Providers Care Health Care Specialist Name Role Phone Elissa Hartman Unavailable [phone] Alessandra Deluna MD Primary Care Provider [phone] Encounter Details Date Type Department Care Team (Late st Contact Info) Description 12/10/2024 Bamboo flowsheet [facility] OB [address] [place] [address] Paulina James PA [address] [facility] [address] [place], [facility] Social History Tobacco Use Types Packs/Day Years [...] week 12/01/2022 How often do you attend congregational or scientology serv ices? Never 12/01/2022 Do you belong to any clubs o r organizations such as congregational groups, unions, fraternal or athletic groups, or [...] Recorded Patient Health Questionnaire-2 Score 0 12/01/2022 [facility] Occupat ional Health - Occupational Stress [...] to sleep or slept in a senior living (including now)? No 12/01/2022 Estimated Date of [...] on filedocumented in this encounter Care Teams Health Care Specialist Relationship Specialty Start Date End Date Alessandra Deluna MD [address] [place] [address] PCP - General Family Medicine 12/01/22 Elissa Hartman PA [address] [place] [address] Physician Primer Inspector Family Medicine 12/01/22 documented as of this encounter
--- OUTSIDE RECORDS SUMMARY | 2024-12-18 00:03 | XMS_ITS | Encounter Summary ---
Author Organization [facility] Address [address] [place] [address] Care Team Providers Care Routing Equipment Tender Name Role Phone Elissa Hartman Unavailable [phone] Alessandra Deluna MD Primary Care Provider [phone] Encounter Details Date Type Department Care Team (Late st Contact Info) Description 12/04/2024 Bamboo flowsheet [facility] OB [address] [place] [address] Stoney Cole, DO [address] [facility] [address] [place], [facility] Social History Tobacco Use Types Packs/Day [...] week 12/01/2022 How often do you attend congregation or jain serv ices? Never 12/01/2022 Do you belong to any clubs o r organizations such as congregation groups, unions, fraternal or athletic groups, or [...] Recorded Patient Health Questionnaire-2 Score 0 12/01/2022 [facility] Occupat ional [facility] - Occupational Stress Questionnaire Answer [...] on filedocumented in this encounter Care Teams Routing Equipment Tender Relationship Specialty Start Date End Date Alessandra Deluna MD [address] [place] [address] PCP - General Family Medicine 12/01/22 Elissa Hartman PA [address] [place] [address] Physician Stab Setter And Driller Family Medicine 12/01/22 documented as of this encounter
--- OUTSIDE RECORDS SUMMARY | 2024-12-18 00:04 | XMS_ITS | Encounter Summary ---
Author Organization [facility] Address [address] [place] [address] Care Team Providers Care Automation Sales Manager Name Role Phone Elissa Hartman Unavailable [phone] Alessandra Deluna MD Primary Care Provider [phone] Encounter Details Date Type Department Care Team (Late st Contact Info) Description 07/17/2024 Abstract [facility] OB [address] [place] [address] Stoney Cole, DO [address] [place], [place] [id number] Social History Tobacco Use Types Packs/Day Years [...] week 12/01/2022 How often do you attend presybeterian or rastafari serv ices? Never 12/01/2022 Do you belong to any clubs o r organizations such as presybeterian groups, unions, fraternal or athletic groups, or [...] Recorded Patient Health Questionnaire-2 Score 0 12/01/2022 [facility] - Occupational Stress Questionnaire Answer Date [...] on filedocumented in this encounter Care Teams Automation Sales Manager Relationship Specialty Start Date End Date Alessandra Deluna MD [address] [place] [address] PCP - General Family Medicine 12/01/22 Elissa Hartman PA [address] [place] [address] Physician Clinical Informatics Director Family Medicine 12/01/22 documented as of this encounter
--- OUTSIDE RECORDS SUMMARY | 2024-12-18 00:04 | XMS_ITS | Encounter Summary ---
Author Organization [facility] Address [address] [place] [address] Care Team Providers Care Protection Agent Name Role Phone Elissa Hartman Unavailable [phone] Keenan Fatima MD Primary Care Provider [phone] Encounter Details Date Type Department Care Team (Late st Contact Info) Description 05/18/2024 Clinisync Result Encounter [facility] External Department Unsolicited Sammy Cole, DO [address] [place] [address] [place], [place] [id number] Social History Tobacco Use Types Packs/Day Years [...] How often do you attend taoism or caodaism serv ices? Never 12/01/2022 Do you belong [...] Recorded Patient Health Questionnaire-2 Score 0 12/01/2022 [facility] - Occupational [...] AM EST Narrative 05/18/2024 5:03 AM EST The [address] [address] Ultrasound Report Signed Patient: JENIFFER GARCIA MR#: [id number] : 1995 Acct:[id number] Age/Sex: 29 / F ADM Date: 05/17/24 Loc: [facility] Attending Dr: Sammy Cole D.O. Ordering Physician: Sammy Cole D.O. Date of Service: 05/17/24 Procedure(s): US OB transvaginal Accession Number(s): [id number] cc: Sammy Cole D.O.; KEENAN FATIMA The [place] [address] Patient Name: JENIFFER GARCIA MRN: [id number] date: 1995 Sex: F Assigned Patient Location: [facility] Current Patient Location: Accession/Order Number: [id number] Exam Date: 05/17/2024 08:30 Report Date: 05/18/2024 [...] By: Ketan Hendrickson M.D. Signed By: 05/18/24 0503 DD/ 0500 TD/TT: Software Quality Specialist: Procedure Note Radiology, Radiologist, MD - 05/20/2024 [place] [address] Ultrasound Report Signed Patient: JENIFFER GARCIAMR#: [id number] : 1995Acct:[id number] Age/Sex: 29 / FADM Date: 05/17/24 Loc: [facility] Attending Dr: Sammy Cole D.O. Ordering Physician: Sammy Cole D.O. Date of Service: 05/17/24 Procedure(s): US OB transvaginal Accession Number(s): [id number] cc: Sammy Cole D.O.; KEENAN FATIMA [address] [address] Patient Name: JENIFFER GARCIA MRN: [facility]:[id number] date: 1995 Sex: F Assigned Patient Location: [facility] Current Patient Location: Accession/Order Number: [id number] Exam Date: 05/17/2024 08:30 Report Date: 05/18/2024 [...] Dictated By: Ketan Hendrickson M.D. Signed By:05/18/24 050 DD/ 0500 TD/TT: Software Quality Specialist: us Sammy Cole DO [facility] Final Result documented in this encounter Visit Diagnoses Not on filedocumented in this encounter Care Teams Protection Agent Relationship Specialty Start Date End Date Keenan Fatima MD [address] [place] [address] PCP - General Family Medicine 12/01/22 Elissa Hartman PA [address] [place] [address] Physician Pump Operator Byproducts Family Medicine 12/01/22 documented as of this encounter
--- OUTSIDE RECORDS SUMMARY | 2024-12-18 00:04 | XMS_ITS | Encounter Summary ---
Author Organization [facility] Address [address] [place] [address] Care Team Providers Care Ophthalmic Nurse Name Role Phone Elissa Hartman Unavailable [phone] Alessandra Deluna MD Primary Care Provider [phone] Encounter Details Date Type Department Care Team (Late st Contact Info) Description 08/05/2024 Abstract [facility] OB [address] [place] [address] Stoney Cole, DO [address] Giovani [place], [facility] Social History Tobacco Use [...] week 12/01/2022 How often do you attend religion or advent serv ices? Never 12/01/2022 Do you belong to any clubs o r organizations such as religion groups, unions, fraternal or athletic groups, or [...] Questionnaire-2 Score 0 12/01/2022 [facility] - Occupational Stress Questionnaire Answer Date Recorded [...] on filedocumented in this encounter Care Teams Ophthalmic Nurse Relationship Specialty Start Date End Date Alessandra Deluna MD [address] [place] [address] PCP - General Family Medicine 12/01/22 Elissa Hartman PA [address] [place] [address] Physician Environmental Communications Specialist Family Medicine 12/01/22 documented as of this encounter
--- OUTSIDE RECORDS SUMMARY | 2024-12-18 00:04 | XMS_ITS | Referral Summary ---
Author Organization [facility] Address [address] [place] [address] Care Team Providers Care Wagon Drill Operator Name Role Phone Julia Miramontes DO Primary Care Provider Encounters Date Type Department Care Team Description 11/06/2024 2:30 PM EDT Office Visit [facility] at [facility] [address] [place] [address] Edwardo Ho MD Palpitations (Primary Dx); Dysautonomia (CMS/HCC); 33 weeks gestation of from Last 3 Months Allergies Active Allergy Reactions Criticality Noted Date Comments Doxycycline Hives,Itching,Photos ens itivity,Rash Low 2021 Sun sensitivity Phentermine Anxiety,Palpitations ,Sh ortness of breath High 01/25/2022 Other Reaction(s): heart racing Other Reaction(s): Dizziness or Vertigo Spironolactone Hives,Itching,Photos ens itivity 2021 Sun sensitivity Medications No known medications Active Problems Problem Noted Date Diagnosed Date 12 weeks gestation of 06/17/2024 Second trimester 06/17/2024 Social History Tobacco Use Types Packs/Day Years Used Date Smoking Tobacco: Never Smokeless Tobacco: Never Tobacco Cessation:Counseling Given: Not Answered Alcohol Use Standard Drinks/Week Comments Not Currently 0 (1 standard drink = 0.6 oz pur e alcohol) Comments Unknown Sex and Gender Information Value Date Recorded Sex Assigned at Female 10/24/2024 2:34 PM EDT Legal Sex Female 3:48 PM EDT Gender Identity Female 10/24/2024 2:34 PM EDT Sexual Orientation Heterosexual or Straight 06/2024 2:34 PM EDT Last Filed Vital Signs Vital Sign Reading Time Taken Comments Blood Pressure 162/88 11/06/2024 2:42 PM EDT Pulse 85 11/06/2024 2:42 PM EDT Temperature - - Respiratory Rate - - Oxygen Saturation 98% 11/06/2024 2:42 PM EDT Inhaled Oxygen Concentration - - Weight 117 kg (258 lb) 11/06/2024 2:42 PM EDT Height 170.2 cm (5' 7 ) 11/06/2024 2:42 PM EDT Body Mass Index 40.41 11/06/2024 2:42 PM EDT Plan of Treatment Not on file Insurance [employer] MEDICAID Care Teams Wagon Drill Operator Relationship Specialty Start Date End Date Julia Miramontes DO [address] [address] PCP - General Family Medicine 10/23/24
--- OUTSIDE RECORDS SUMMARY | 2024-12-18 00:04 | XMS_ITS | Clinical Summary ---
Author Organization [facility] Address [address] [place] [address] Care Team Providers Care Software Installer Name Role Phone Elissa Hartman Unavailable [phone] Alessandra Deluna MD Primary Care Provider [phone] Allergies Active Allergy Reactions Criticality Noted Date [...] Date Diagnosed Date 12 weeks gestation of ([facility]) 2023 Second trimester ([facility]) 06/17/2024 Estimated Date of Delivery Comme nts Yes 12/25/2024 Based on last me nstrual period of 03/20/2024 Encounters Date Type Department Care Team Description 12/16/2024 Abstract [facility] OB [address] [place] [address] Marlen Tejeda LPN 12/10/2024 1:00 PM EDT Routine [facility] OB [address] [place] [address] [place] [address] Paulina James PA Third trimester ([facility]); 37 weeks gestation of ([facility]) 12/10/2024 Bamboo flowsheet [facility] [address] [place] [address] Paulina James PA 12/09/2024 Travel 12/04/2024 2:30 PM EDT Routine [facility] [address] [place] [address] Sammy Cole, Third trimester ([facility]); 36 weeks gestation of ([facility]) 12/04/2024 Bamboo flowsheet [facility] [address] [place] [address] Sammy Cole, 12/01/2024 Travel 11/27/2024 1:50 PM EDT Routine [facility] [address] [place] [address] Paulina James PA Third trimester ([facility]); 36 weeks gestation of ([facility]) 11/27/2024 Bamboo flowsheet [facility] [address] [place] [address] Paulina James PA 11/21/2024 Travel 11/20/2024 11:10 AM EDT Routine [facility] OB [address] [place] [address] [place] [address] Sammy Cole, Third trimester ([facility]); 35 weeks gestation of ([facility]) 11/20/2024 Bamboo flowsheet [facility] [address] [place] [address] Sammy Cole, 11/13/2024 Travel 11/12/2024 Clinisync Result Encounter [facility] External Department Unsolicited Sammy Cole, DO 11/06/2024 8:30 AM EDT Routine [facility] [address] [place] [address] Janis Maradiaga, ASH Third trimester ([facility]); 32 weeks gestation of ([facility]) 11/06/2024 Bamboo flowsheet [facility] [address] [place] [address] Janis Maradiaga NP 10/30/2024 Travel 10/22/2024 8:30 AM EDT Routine [facility] [address] [place] [address] Sammy Cole, Third trimester ([facility]); Heart palpitations 10/22/2024 8:00 AM EDT Ancillary Procedure [facility] [address] [place] [address] size inconsistent with dates ([facility]) 10/22/20[address] [facility] [address] [place] [address] Marlen Tejeda LPN 10/15/2024 Travel 10/08/2024 10:10 AM EDT Routine [facility] [address] [place] [address] Sammy Cole, Third trimester ([facility]); 28 weeks gestation of ([facility]); size inconsistent with dates ([facility]) 10/08/2024 Bamboo flowsheet [facility] [address] [place] [address] Sammy Cole DO 10/01/2024 Travel 09/26/2024 9:30 AM EDT Ancillary Procedure [facility] [address] [place] [address] Encounter for follow-up ultrasound of anatomy ([facility]) 09/26/2024 Clinisync Result Encounter [facility] External Department Unsolicited Paulina James PA 09/21/2024 Travel from Last 3 Months Family History Medical [...] week 12/01/2022 How often do you attend buddhism or mormon serv ices? Never 12/01/2022 Do you belong to any clubs o r organizations such as buddhism groups, unions, fraternal or athletic groups, or [...] Recorded Patient Health Questionnaire-2 Score 0 12/01/2022 [facility] - Occupational Stress [...] place to sleep or slept in a jail (including now)? No 12/01/2022 Estimated Date of [...] Pressure 124/78 12/10/2024 1:14 PM EDT Pulse 75 12/01/2022 4:12 PM EDT Temperature 36.9 C (98.4 F) 12/01/2022 4:12 PM EDT Respiratory Rate - - Oxygen Saturation 98% 12/01/2022 4:12 PM EDT Inhaled Oxygen Concentration - - Weight 123 kg (271 lb) 12/10/2024 1:14 PM EDT Height 170.2 cm (5' 7 ) 12/01/2022 4:12 PM EDT Body Mass Index 42.44 12/01/2022 4:12 PM EDT Plan of Treatment Health Maintenance Due Date Last Done Comments Influenza Vaccine (Season Ended) 2025 03/09/2021, 04/04/2017, 04/08/2016 Procedures Procedure Name Priority Date/Time Associated Diagnosis Comments POCT URINALYSIS DIPSTICK Routine 12/10/2024 1:14 PM EDT Third trimester ([facility]) POCT URINALYSIS DIPSTICK Routine 12/04/2024 2:53 PM EDT Third trimester ([facility]) 36 weeks gestation of ([facility]) POCT URINALYSIS DIPSTICK Routine 11/27/2024 2:12 PM EDT Third trimester ([facility]) CULTURE, GROUP B STREP WITH SUSCEPTIBLITY Routine 11/27/2024 2:00 PM EDT Third trimester ([facility]) POCT URINALYSIS DIPSTICK Routine 11/20/2024 11:22 AM EDT Third trimester ([facility]) CA ECHO DOPPLER COMPLETE 11/12/2024 3:20 PM EDT POCT URINALYSIS DIPSTICK Routine 11/06/2024 8:39 AM EDT Third trimester ([facility]) US OB FOLLOW UP TRANSABDOMINAL APPROACH Routine 10/22/2024 8:31 AM EDT size inconsistent with dates ([facility]) POCT URINALYSIS DIPSTICK Routine 10/08/2024 10:26 AM EDT Third trimester ([facility]) US OB LIMITED 1+ FETUSES Routine 09/26/2024 10:08 AM EDT Encounter for follow-up ultrasound of anatomy ([facility]) ALL CBC WITH AUTO DIFF Routine 9:11 AM EDT GLUCOSE 1 HOUR Routine 09/26/2024 9:11 AM EDT from Last 3 Months Results * POCT urinalysis dipstick manually resulted (12/10/2024 1:14 PM EDT) Only the most recent of6 resultswithin the time period is included. Color, [...] TEST ENTER/EDIT OR DERABLES Final Result * CULTURE, GROUP B STREP WITH SUSCEPTIBLITY (11/27/2024 2:00 PM EDT) Swab 11/27/2024 2:00 PM EDT us Paulina BAJWA LAB BLOOD ORDERABLES Final Resul t EXTERNAL LAB * CA ECHO DOPPLER COMPLETE (11/12/2024 3:20 PM EDT) Anatomical Region Laterality Modality Other 11/12/2024 3:20 PM EDT Narrative 11/12/2024 3:21 [place] [address] Cardiology Report Signed Patient: JENIFFER GARNETT MR#: [id number] : 1995 Acct:[id number] Age/Sex: 29 / F ADM Date: 11/12/24 Loc: CARD Attending Dr: Sammy Cole D.O. Ordering Physician: Sammy Cole D.O. Date of Service: 11/12/24 Procedure(s): CA echo doppler complete Accession Number(s): [id number] cc: Sammy Cole D.O.; Julia Miramontes D.O. Patient Name: JENIFFER GARNETT MR#: [id number] : 1995 Exam Date: 11/12/2024 Ordering Doctor: [...] Signed By: 11/12/24 1521 DD/ 1520 TD/TT: Wood Experimental Mechanic: Procedure Note Radiology, Radiologist, MD - 11/12/2024 [place] [address] Cardiology Report Signed Patient: JENIFFER GARNETTMR#: [id number] : 1995Acct:[id number] Age/Sex: 29 / FADM Date: 11/12/24 Loc: CARD Attending Dr: Sammy Cole D.O. Ordering Physician: Sammy Cole D.O. Date of Service: 11/12/24 Procedure(s): CA echo doppler complete Accession Number(s): [id number] cc: Sammy Cole D.O.; Julia Miramontes D.O. Patient Name: JENIFFER GARNETT MR#: [id number] : 1995 Exam Date: 11/12/2024 Ordering Doctor: [...] PEACE Signed By:11/12/24 1521 DD/ 1520 TD/TT: Wood Experimental Mechanic: us Sammy Douglas DO [facility] Final [...] II, MD, PHD at 22-Oct-2024 07:05:21 PM [facility] Procedure Note Rodney Garrison MD - [...] signed by RODNEY GARRISON II, MD, PHD [id number] 07:05:21 PM [facility] us Sammy Cole DO [facility] OB US PROCEDURES Final Resul t * [...] II, MD, PHD at 27-Sep-2024 08:29:09 AM [facility] Procedure Note Rodney Garrison MD - [...] GARRISON II, MD, PHDat 27-Sep-2024 08:29:09 AM [facility] us Sammy Cole DO IMG OB US PROCEDURES Final Resul t * GLUCOSE 1 HOUR (09/26/2024 9:11 AM EDT) GLUCOSE 1 HOUR 99 <130 mg/dL [facility] 09/26/2024 9:11 AM EDT 09/26/2024 9:12 AM EDT Narrative [facility] - 09/26/2024 9:30 AM EDT us Paulina BAJWA LAB BLOOD ORDERABLES Final Resul t [facility] * (ABNORMAL) ALL CBC WITH AUTO DIFF (09/26/2024 9:11 AM EDT) [facility] TB WBC 8.2 4.0 - 11.0 10 3/uL [facility] RBC 3.79(L) 4.20 - 5.40 10 6/uL [facility] HGB 11.4(L) 12.0 - 16.0 g/dL [facility] HCT 34.4(L) 36.0 - 48.0 % [facility] MCV 90.8 81.0 - 99.0 fL TBH [facility] MCH 30.1 26.7 - 34.0 pg TBH TBH MCHC 33.1 29.9 - 35.2 g/dL [facility] RDW 13.9 11.0 - 15.0 % TB[facility] [...] AM EDT Paulina BAJWA [facility] Final Result [facility] from Last 3 Months Insurance [employer] MEDICA[employer] Care Teams Software Installer Relationship Specialty Start Date End Date Alessandra Deluna MD [address] [place] [address] PCP - General Family Medicine 12/01/22 Elissa Hartman PA [address] [place] [address] Physician Barrel Bung Remover And Dumper Family Medicine 12/01/22
--- OUTSIDE RECORDS SUMMARY | 2024-12-18 00:04 | XMS_ITS | Encounter Summary ---
Author Organization [facility] Address [address] [place] [address] Care Team Providers Care Branch Logistics Supervisor Name Role Phone Elissa Hartman Unavailable [phone] Alessandra Deluna MD Primary Care Provider [phone] Encounter Details Date Type Department Care Team (Late st Contact Info) Description 07/26/2024 Orders Only [facility] OB [address] [place] [address] Brandie Estes MA [address] [place] [address] Social History Tobacco Use Types Packs/Day Years [...] How often do you attend temple or sabianism serv ices? Never 12/01/2022 Do you belong [...] Recorded Patient Health Questionnaire-2 Score 0 12/01/2022 [facility] - Occupational [...] on filedocumented in this encounter Care Teams Branch Logistics Supervisor Relationship Specialty Start Date End Date Alessandra Deluna MD [address] [place] [address] PCP - General Family Medicine 12/01/22 Elissa aHrtman PA [address] [place] [address] Physician Corn Husker Machine Operator Family Medicine 12/01/22 documented as of this encounter
--- OUTSIDE RECORDS SUMMARY | 2024-12-18 00:04 | XMS_ITS | Clinical Summary ---
Author Organization [facility] Address [address] [place] [address] Care Team Providers Care Appraiser Irrigation Tax Name Role Phone Julia Miramontes DO Primary Care Provider [phone] Allergies Active Allergy Reactions Criticality Noted Date Comments Doxycycline Hives,Itching,Photos ens itivity,Rash Low 2021 Sun sensitivity Phentermine Anxiety,Palpitations ,Sh ortness of breath High 01/25/2022 Other Reaction(s): heart racing Other Reaction(s): Dizziness or Vertigo Spironolactone Hives,Itching,Photos ens itivity 2021 Sun sensitivity Medications No known medications Active Problems Problem Noted Date Diagnosed Date 12 weeks gestation of 06/17/2024 Second trimester 06/17/2024 Encounters Date Type Department Care Team Description 11/06/2024 2:30 PM EDT Office Visit [facility] Heart at [facility] [address] [place] [address] Edwardo Ho MD Palpitations (Primary Dx); Dysautonomia (CMS/HCC); 33 weeks gestation of from Last 3 Months Family History Relation Name Status Comments Brother Alive Father Mother Alive Sister Alive Social History Tobacco Use Types Packs/Day Years [...] 11/06/2024 2:42 PM EDT Plan of Treatment Health Maintenance Due Date Last Done Comments Depression Screening 2007 Pap Smear 2016 COVID-19 Vaccine ( season) 2024 06/02/2021, 11/21/2020 Influenza Vaccine (Season Ended) 2025 03/09/2021, 04/04/2017, 04/08/2016 Adult Tetanus 08/05/2031 08/05/2021, 03/11/2010 Zoster Vaccines (1 of 2) 2045 03/11/2010, 04/27 HIB Vaccines Completed 09/02/1996, 04/27, 02/13/1996, Additional history exists IPV Vaccines Completed 02/08/2001, 10/24, 02/13/1996, Additional history exists Meningococcal Vaccine Aged Out 03/11/2010 No simeon steve eligible based on patient's age to complete this topic Varicella Vaccines Completed 03/11/2010, 05/16/1996 HPV Vaccines Completed 02/04/2022, 09/25, 08/05/2021 Meningococcal B Vaccine Aged Out No l onger eligible based on patient's age to complete this topic Pneumococcal Vaccine: Pediatrics (0 to 5 Years) and At-Risk Patients (6 to 64 Years) Aged Out No longer eligible based on patient's age to complete this topic Rotavirus Vaccines Aged Out No longer eligible based on patient's age to complete this topic Insurance COUNTS INCLUDE 234 BEDS AT THE [facility] MEDICAID Care Teams Appraiser Irrigation Tax Relationship Specialty Start Date End Date Julia Miramontes DO [address] [address] PCP - General Family Medicine 10/23/24
--- OUTSIDE RECORDS SUMMARY | 2024-12-18 00:04 | XMS_ITS | Encounter Summary ---
Author Organization [facility] Address [address] [place] [address] Care Team Providers Care Field Artillery Crewmember Name Role Phone Elissa Hartman Unavailable [phone] Alessandra Deluna MD Primary Care Provider [phone] Encounter Details Date Type Department Care Team (Late st Contact Info) Description 05/17/2024 Abstract [facility] OB [address] [place] [address] Stoney Cole, DO [address] Giov[place], [facility] Social History Tobacco Use Types Packs/Day [...] week 12/01/2022 How often do you attend christian or anabaptist serv ices? Never 12/01/2022 Do you belong to any clubs o r organizations such as christian groups, unions, fraternal or athletic groups, or [...] Recorded Patient Health Questionnaire-2 Score 0 12/01/2022 [facility] - Occupational Stress Questionnaire Answer Date [...] place to sleep or slept in a [place] health care facility (including now)? No 12/01/2022 Estimated Date of [...] on filedocumented in this encounter Care Teams Field Artillery Crewmember Relationship Specialty Start Date End Date Alessandra Deluna MD [address] [place] [address] PCP - General Family Medicine 12/01/22 Elissa Hartman PA [address] [place] [address] Physician Communications Department Head Family Medicine 12/01/22 documented as of this encounter
[2024-12-18] MEDS: 0.9 % SODIUM CHLORIDE 1,000 ML 125 ML IV ×3 (00:37→11:27)
[2024-12-18] MEDS: OXYTOCIN/0.9 % SODIUM CHLORIDE 10 UNITS/500 ML PLAST..BAG 6 UNIT IV (01:15)
[2024-12-18 02:33] LABS: Hematocrit 32.8 % (36.0-48.0); Mean Corpuscular HGB Conc 33.5 g/dL (29.9-35.2); Mean Corpuscular Hemoglobin 29.8 pg (26.7-34.0); Mean Corpuscular Volume 88.9 fL (81.0-99.0); Mean Platelet Volume 10.9 fL (9.5-13.5); Platelet Count 325 10^3/uL (150-450); Red Blood Count 3.69 10^6/uL (4.20-5.40); Red Cell Distribution Width 15.4 % (11.0-15.0); White Blood Count 10.2 10^3/uL (4.0-11.0)
[2024-12-18 02:47] LABS: Amphetamine Screen Urine NEGATIVE (NEGATIVE); Barbiturates Screen Urine NEGATIVE (NEGATIVE); Benzodiazepines Screen Urine NEGATIVE (NEGATIVE); Buprenorphine Screen Urine NEGATIVE (NEGATIVE); Cannabinoid Screen Urine NEGATIVE (NEGATIVE); Cocaine Screen Urine NEGATIVE (NEGATIVE); Methadone Screen Urine NEGATIVE (NEGATIVE); Methamphetamines Screen Urine NEGATIVE (NEGATIVE); Opiate Screen Urine NEGATIVE (NEGATIVE); Oxycodone Screen Urine NEGATIVE (NEGATIVE); Phencyclidine Screen Urine NEGATIVE (NEGATIVE); Tricyclic Antidepressant Urine NEGATIVE (NEGATIVE)
--- NOTE | 2024-12-18 07:44 | W.PC.ACHO ---
Registration Status: ADM IN Primary Language: Mongolian Preferred Language: Mongolian Report given to Virgie BUNN at 0700. Care relinquished at this time. Active Medications Generic Name Dose Route Start Last Admin Trade Name Freq PRN Reason Stop Dose Admin Carboprost Tromethamine 250 mcg 12/18/24 00:15 Carboprost Tromethamine 250 Mcg/Ml 1 Ml Vial IM 12/20/24 00:15 Q15M PRN Bleeding Diphenhydramine HCl 25 mg 12/18/24 06:03 Diphenhydramine Hcl 50 Mg/Ml Vial IV 12/19/24 06:03 Q6H PRN Itching Ephedrine Sulfate 5 mg 12/18/24 07:28 Ephedrine Sulfate 50 Mg/Ml Vial IV 12/19/24 07:28 Q5M PRN Blood Pressure - Low Tranexamic Acid 1,000 mg/ 110 mls @ 440 mls/hr 12/18/24 00:15 Sodium Chloride IV 12/20/24 00:15 ONCE PRN Uterine Bleeding Sodium Chloride 1,000 mls @ 125 mls/hr 12/18/24 00:30 12/18/24 00:37 Sodium Chloride 0.9% 1,000 Ml IV 125 mls/hr .Q8H MEL Administration Oxytocin/Sodium Chloride 10 units in 500 mls @ 6 mls/hr 12/18/24 00:15 12/18/24 06:30 Pitocin 10 Unit/500 Ml-Ns IV 16 milliunit/min TITR MEL 48 mls/hr Protocol Infusion 2 MILLIUNIT/MIN Oxytocin/Sodium Chloride 20 units in 1,000 mls @ 125 mls/hr 12/18/24 00:15 Pitocin 20 Unit/1,000 Ml-Ns IV Q8H PRN POST DELIVERY Ropivacaine/Sodium Chloride 400 mg in 200 mls @ 6 mls/hr 12/18/24 06:15 Naropin 0.2% 400 Mg/200 Ml Bag EPIDURAL Q24H MEL Lidocaine 5 ml 12/18/24 00:15 Lidocaine Viscous 2% 15 Ml Solution TOPICAL 12/20/24 00:17 ONCE PRN Pain Lidocaine 1 ml 12/18/24 00:15 Lidocaine Hcl 1% 200 Mg/20 Ml Mdv INJ 12/20/24 00:17 ONCE PRN Pain Methylergonovine Maleate 0.2 mg 12/18/24 00:15 Methylergonovine Maleate 0.2 Mg/Ml Ampule IM 12/20/24 00:15 ONCE PRN Uterine Contractility/Contract Methylergonovine Maleate 0.2 mg 12/18/24 00:15 Methylergonovine Maleate 0.2 Mg Tablet PO 12/20/24 00:15 Q4H PRN Uterine Contractility/Contract Misoprostol 600 mcg 12/18/24 00:15 Misoprostol 100 Mcg Tablet PO 12/20/24 00:15 ONCE PRN Uterine Bleeding Misoprostol 800 mcg 12/18/24 00:15 Misoprostol 100 Mcg Tablet SL 12/20/24 00:15 ONCE PRN Uterine Bleeding Misoprostol 1,000 mcg 12/18/24 00:15 Misoprostol 100 Mcg Tablet TX 12/20/24 00:15 ONCE PRN Uterine Bleeding Nalbuphine HCl 10 mg 12/18/24 00:15 Nalbuphine Hcl 10 Mg/Ml Ampule IV Q3H PRN Pain Scale 4-6 Naloxone HCl 0.4 mg 12/18/24 06:03 Naloxone Hcl 0.4 Mg/Ml Vial IV 12/19/24 06:04 ONCE PRN Epidural Ondansetron HCl 4 mg 12/18/24 00:15 Ondansetron Pf 4 Mg/2 Ml Vial IV Q6H PRN Nausea And Vomiting Ondansetron HCl 4 mg 12/18/24 00:15 Ondansetron 4 Mg Rapdis Tablet SL Q6H PRN Nausea And Vomiting Oxytocin 10 unit 12/18/24 00:15 Oxytocin 10 Unit/Ml Vial IM 12/20/24 00:15 ONCE PRN Bleeding Diet Category Date Time Status Regular Consistency Diet Diet 12/18/24 00:16 Active Consults Category Date Time Status Consult to Anesthesiology Routine Cons 12/18/24 Ordered IV Insertion/Site Date of IV Line Insertion [ 12/18/24 Short PIV (<1.75 in) 20g right Hand] IV Insertion Time [Short PIV ( 00:30 <1.75 in) 20g right Hand] Neurology Patient orientation (short person,place,time,situation list)
[2024-12-18] MEDS: ONDANSETRON PF 4 MG/2 ML VIAL IV (09:08)
[2024-12-18] MEDS: ROPIVACAINE HCL/PF 400 MG/200 ML PREMIX 10 MG EPIDURAL (09:50)
[2024-12-18] MEDS: OXYTOCIN/0.9 % SODIUM CHLORIDE 20 UNITS/1,000 ML PLAST..BAG 999 UNIT IV (14:47)
[2024-12-18] MEDS: IBUPROFEN 600 MG TABLET PO (16:06)
[2024-12-18] MEDS: GLYCERIN/WITCH HAZEL PADS 1 PAD TOPICAL (16:06)
[2024-12-18] MEDS: BENZOCAINE/MENTHOL 85 GRAM SPRAY BOTTLE 1 APPLIC TOPICAL (16:06)
--- NOTE | 2024-12-18 17:04 | PM.OBPRCVD ---
Procedure Intrapartal events: None Induction method: per pitocin protocol Delivery augmentation: rupture of membranes and pitocin Delivery monitor: external FHT and external uterine Route of delivery: Episiotomy Description: none L&D Laceration Description: periurethral - 1st degree and perineal - 1st degree Delivery repair: Vicryl Estimated blood loss (mL): 350 Anesthesia type: Epidural Disposition: floor Infant Delivery date: 12/18/24 Gender: male presentation: vertex Placental delivery description: Spontaneous and Normal Configuration cord description: 3 Vessels
[2024-12-19 07:04] LABS: Basophils Percent Auto 0.3 % (0.2-2.0); Eosinophils Absolute Auto 0.1 10^3/uL (0.0-0.7); Eosinophils Percent Auto 0.5 % (0.9-7.0); Hematocrit 30.5 % (36.0-48.0); Immature Granulocytes Abs Auto 0.13 10^3/uL (0.00-0.03); Lymphocytes Absolute Auto 2.5 10^3/uL (1.2-3.8); Lymphocytes Percent Auto 18.9 % (20.5-60.0); Mean Corpuscular HGB Conc 32.8 g/dL (29.9-35.2); Mean Corpuscular Hemoglobin 29.6 pg (26.7-34.0); Mean Corpuscular Volume 90.2 fL (81.0-99.0); Mean Platelet Volume 10.1 fL (9.5-13.5); Monocytes Absolute Auto 0.8 10^3/uL (0.3-0.8); Monocytes Percent Auto 6.2 % (1.7-12.0); Neutrophils Absolute Auto 9.7 10^3/uL (1.4-6.5); Neutrophils Percent Auto 73.1 % (43.0-75.0); Platelet Count 301 10^3/uL (150-450); Red Blood Count 3.38 10^6/uL (4.20-5.40); Red Cell Distribution Width 15.6 % (11.0-15.0); White Blood Count 13.3 10^3/uL (4.0-11.0)
[2024-12-19] MEDS: IBUPROFEN 600 MG TABLET PO ×3 (08:35→23:21)
[2024-12-19] MEDS: DOCUSATE SODIUM 100 MG CAPSULE PO ×2 (08:35→23:22)
[2024-12-19 09:31] VITALS: TEMP 37.1
--- NOTE | 2024-12-19 10:33 | PM.OBPN ---
OB - PN: Subj Subjective Patient comments: no complaints, pain well controlled, tolerating diet and flatus present Petroleum infant status: doing well and well Petroleum feeding status: exclusively Exam Constitutional Vital Signs, click to edit/add: Last Vital Signs Temp 98.8 F 12/19/24 09:31 Pulse 75 12/18/24 23:38 Resp 16 12/19/24 09:31 BP 123/68 12/18/24 23:38 O2 Del Method Room Air 12/18/24 23:38 Documenting provider has reviewed patient's vital signs: yes Common normals: no apparent distress, average body habitus, oriented x3, no limitations, healthy appearing, alert and well nourished General appearance: cooperative, comfortable, well kempt and well developed Orientation/consciousness: Yes awake, Yes oriented to person, Yes oriented to place and Yes oriented to time Chest Common normals: inspection of breasts normal GI Common normals: Normal to inspection, nondistended, normoactive bowel sounds present, soft to palpation and non-tender Palpation: soft and firm (Fundus firm and 1 fingerbreadth below umbilicus.) Back & Pelvis Pelvis: other (Mild lochia rubra is present.) Extremity Common normals: normal to inspection, no calf tenderness and no pedal edema Results Labs Labs: Short CBC 12/19/24 Range/Units 06:43 WBC 13.3 H (4.0-11.0) 10^3/uL Hgb 10.0 L (12.0-16.0) g/dL Hct 30.5 L (36.0-48.0) % Plt Count 301 (150-450) 10^3/uL Urinary Catheter Management Urinary Catheter Management Urethral: Cath placed during this visit: yes, but has since been removed by the nurse Insertion date: 12/18/24 Insertion time: 10:24 Removal date: 12/18/24 Removal time: 14:05 OB - PN: A/P Assessment and Plan (1) care following vaginal delivery: Plan Patient is post primary #1 doing well. Will continue supportive care. Plan - Vaginal Delivery day: 1 Plan: routine care Time Spent with Patient Time: Total time spent is greater than 50% in coordination of care (as documented) at patient's floor/unit and/or counseling patient: Total time spent with greater than 50% in coordination of care (as documented) at patient's floor/unit and/or counseling patient: less than 15 minutes
[2024-12-19 13:41] VITALS: BP 126/75; PULSE 80
[2024-12-19 15:35] VITALS: TEMP 36.5
[2024-12-19 23:23] VITALS: BP 130/69; PULSE 70; TEMP 36.4
[2024-12-20 08:21] VITALS: BP 124/70; PULSE 73; TEMP 37.1
[2024-12-20] MEDS: DOCUSATE SODIUM 100 MG CAPSULE PO (08:22)
[2024-12-20] MEDS: IBUPROFEN 600 MG TABLET PO (08:22)
--- NOTE | 2024-12-20 10:23 | PM.OBDS ---
DS: Providers Provider Date of admission: 12/17/24 23:59 Primary care physician: Julia Miramontes DO Admitting clinician: Stoney Cole Attending physician on admission: Stoney Cole Consults: 12/18/24 Consult to Anesthesiology Routine Consulting Provider: Melvin Escoto II Reason for consultation: epidural Attending physician on discharge: Anuj Phillips Discharging clinician: Anuj Phillips Anticipated date of discharge: 12/20/24 DS: Diagnosis Discharge Diagnosis (1) care following vaginal delivery: Assessment and plan: Patient is day #2 doing well. Patient for discharge home today. Plan Patient is day #2 doing well. Patient for discharge home today. OB - DS: Summary Hospital Course Hospital Course: Uneventful hospital course Time spent discussing smoking cessation with patient: 3 to 10 minutes Peripartum Data - Vaginal Delivery Laceration description: periurethral - 1st degree (Along with first-degree perineal laceration) Complications complications: none Delivery method: spontaneous vaginal delivery Gender: female Status at Discharge Functional status at discharge: independent ambulation Overall status at discharge: patient is back to baseline Time Spent with Patient Time attestation: Total time spent providing and/or coordinating discharge services: Time spent: less than 30 minutes Specific discharge activities: Routine activity. Exam Constitutional Vital Signs, click to edit/add: Last Vital Signs Temp 98.8 F 12/20/24 08:21 Pulse 73 12/20/24 08:21 Resp 14 12/20/24 08:21 BP 124/70 12/20/24 08:21 O2 Del Method Room Air 12/20/24 08:21 Documenting provider has reviewed patient's vital signs: yes Common normals: no apparent distress, average body habitus, oriented x3, no limitations, healthy appearing, alert and well nourished General appearance: cooperative, comfortable, well kempt and well developed Orientation/consciousness: Yes awake, Yes oriented to person, Yes oriented to place and Yes oriented to time Chest Common normals: inspection of breasts normal GI Common normals: Normal to inspection, nondistended, normoactive bowel sounds present, soft to palpation and non-tender Palpation: soft and firm (Fundus firm and 2 fingerbreadths below umbilicus) Back & Pelvis Pelvis: other (Mild lochia rubra is present) Extremity Common normals: normal to inspection, no calf tenderness and no pedal edema Discharge Plan Discharge Disposition: Home, Self-Care Condition: Good Assessment: Patient is day #2 doing well. Health Concerns: None Plan of Treatment: Routine care. Discharge Medications: New Dermoplast (with menthol) 20-0.5 % Aerosol 1 spray topical Q2H PRN (Reason: Pain) 30 Days Qty: 1 0RF ibuprofen 600 mg Tablet 600 mg PO Q6H PRN (Reason: Moderate Pain) 30 Days Qty: 120 0RF [employer] [facility] 12.5-50 % Pads, Medicated 1 pad topical Q2H PRN (Reason: Pain) 30 Days Qty: 90 0RF simethicone [Gas Relief 80 (simethicone)] 80 mg Tablet,Chewable 80 mg PO QID PRN (Reason: Abdominal Distention) 30 Days Qty: 90 0RF Continued PNV cmb#95-ferrous fumarate-FA [] 28 mg iron- 800 mcg tablet 1 tab PO DAILY 30 Days Qty: 30 0RF Activity: resume usual activities as tolerated Diet: regular diet Print Language: Luxembourger Patient Instructions: Prevent Falls and Drops in the Hospital (GEN) Forms: Portal Instructions
--- OUTSIDE RECORDS SUMMARY | 2024-12-23 15:54 | XMS_ITS | Encounter Summary ---
Author Organization [facility] Address [address] [place] [address] Care Team Providers Care Press Smith Helper Name Role Phone Elissa Hartman PA Unavailable [phone] Alessandra Deluna MD Primary Care Provider [phone] Julia Miramontes MD Primary Care Provider [phone] Encounter Details Date Type Department Care Team (Late st Contact Info) Description 07/26/2024 Orders Only [facility] BCP OB [address] [address] Brandie Estes MA [address] [facility] [place] [address] Social History Tobacco Use Types Packs/Day Years [...] week 12/01/2022 How often do you attend lutheran or jew serv ices? Never 12/01/2022 Do you belong to any clubs o r organizations such as lutheran groups, unions, fraternal or athletic groups, or [...] Patient Health Questionnaire-2 Score 0 12/01/2022 [facility] of Occupat ional [facility] - Occupational Stress Questionnaire Answer Date [...] place to sleep or slept in a penitentiary (including now)? No 12/01/2022 Estimated Date of [...] on filedocumented in this encounter Care Teams Press Smith Helper Relationship Specialty Start Date End Date Alessandra Deluna MD [address] [place] [address] PCP - General Family Medicine 12/01/22 12/22/24 Julia Miramontes MD [address] [facility] [place] [id number] PCP - General Family Medicine 12/23/24 Elissa Hartman PA [address] [place] [address] Physician Biopharmaceutical Rep Family Medicine 12/01/22 documented as of this encounter
--- OUTSIDE RECORDS SUMMARY | 2024-12-23 15:54 | XMS_ITS | Encounter Summary ---
Author Organization [facility] Address [address] [place] [address] Care Team Providers Care Advertising Agency Manager Name Role Phone Elissa Hartman PA Unavailable [phone] Alessandra Deluna MD Primary Care Provider [phone] Julia Miramontes MD Primary Care Provider Encounter Details Date Type Department Care Team (Late st Contact Info) Description 07/17/2024 Abstract [facility] BCP OB [address] [facility] [place] [address] Stoney Cole, [address] [facility] [address] [place], [place] [id number] Social History Tobacco Use Types Packs/Day Years [...] week 12/01/2022 How often do you attend spiritism or restorationist serv ices? Never 12/01/2022 Do you belong to any clubs o r organizations such as spiritism groups, unions, fraternal or athletic groups, or [...] Recorded Patient Health Questionnaire-2 Score 0 12/01/2022 [facility] of Occupat ional Health - [...] on filedocumented in this encounter Care Teams Advertising Agency Manager Relationship Specialty Start Date End Date Alessandra Deluna MD [address] [place] [address] PCP - General Family Medicine 12/01/22 12/22/24 Julia Miramontes MD [address] [place] [address] PCP - General Family Medicine 12/23/24 Elissa Hartman PA [address] [place] [address] Physician Trauma Doctor Family Medicine 12/01/22 documented as of this encounter
--- OUTSIDE RECORDS SUMMARY | 2024-12-23 15:54 | XMS_ITS | Encounter Summary ---
Author Organization [facility] Address [address] [place] [address] Care Team Providers Care Management Retail Intern Name Role Phone Ashleigh Hartmanoraderik Arce PA Unavailable Alessandra Deluna MD Primary Care Provider [phone] Julia Miramontes MD Primary Care Provider [phone] Encounter Details Date Type Department Care Team (Late st Contact Info) Description 12/16/2024 Abstract [facility] BCP OB [address] [facility] [place] [address] Marlen Tejeda LPN Social History Tobacco Use [...] How often do you attend presybeterian or adventist serv ices? Never 12/01/2022 Do you belong [...] Recorded Patient Health Questionnaire-2 Score 0 12/01/2022 [facility] - Occupational Stress Questionnaire Answer [...] on filedocumented in this encounter Care Teams Management Retail Intern Relationship Specialty Start Date End Date Alessandra Deluna MD [address] [place] [address] PCP - General Family Medicine 12/01/22 12/22/24 Julia Miramontes MD [address] [place] [phone] PCP - General Family Medicine 12/23/24 Elissa Hartman PA [address] [place] [address] Physician Commodity Loan Clerk Family Medicine 12/01/22 documented as of this encounter
--- OUTSIDE RECORDS SUMMARY | 2024-12-23 15:54 | XMS_ITS | Encounter Summary ---
Author Organization [facility] Address [address] [place] [address] Care Team Providers Care Mountain Or Glacier Guide Name Role Phone Elissa Hartman Unavailable [phone] Alessandra Deluna MD Primary Care Provider [phone] Encounter Details Date Type Department Care Team (Latest Contact Info) Description 12/09/2024 Travel Social History Tobacco Use Types Packs/Day [...] week 12/01/2022 How often do you attend confucianist or denominational serv ices? Never 12/01/2022 Do you belong to any clubs o r organizations such as confucianist groups, unions, fraternal or athletic groups, or [...] Recorded Patient Health Questionnaire-2 Score 0 12/01/2022 [facility] - Occupational Stress Questionnaire Answer Date [...] place to sleep or slept in a long term (including now)? No 12/01/2022 Estimated Date of [...] on filedocumented in this encounter Care Teams Mountain Or Glacier Guide Relationship Specialty Start Date End Date Alessandra Deluna MD [address] [place] [address] PCP - General Family Medicine 12/01/22 12/22/24 Elissa Hartman PA [address] [place] [address] Physician Corporate Risk Analyst Family Medicine 12/01/22 documented as of this encounter
--- OUTSIDE RECORDS SUMMARY | 2024-12-23 15:54 | XMS_ITS | Encounter Summary ---
Author Organization [facility] Address [address] [place] [address] Care Team Providers Care Chocolate Finisher Name Role Phone Elissa Hartman PA Unavailable [phone] Keenan Fatima MD Primary Care Provider [phone] Julia Miramontes MD Primary Care Provider [phone] Encounter Details Date Type Department Care Team (Late st Contact Info) Description 05/18/2024 Clinisync Result Encounter [facility] External Department Unsolicited Sammy Cole, DO [address] [facility] [address] [place] [address] Social History Tobacco Use Types Packs/Day Years [...] week 12/01/2022 How often do you attend confucianism or congregation serv ices? Never 12/01/2022 Do you belong to any clubs o r organizations such as confucianism groups, unions, fraternal or athletic groups, or [...] Questionnaire-2 Score 0 12/01/2022 [facility] of Occupat ional [facility] - Occupational Stress Questionnaire Answer Date [...] EST Narrative 05/18/2024 5:03 AM EST The [address] [address] Ultrasound Report Signed Patient: JENIFFER GARCIA MR#: [id number] : 1995 Acct:[id number] Age/Sex: 29 / F ADM Date: 05/17/24 Loc: [facility] Attending Dr: Sammy Cole D.O. Ordering Physician: Sammy Cole D.O. Date of Service: 05/17/24 Procedure(s): US OB transvaginal Accession Number(s): [id number] cc: Sammy Cole D.O.; KEENAN FATIMA The [place] [address] Patient Name: JENIFFER GARCIA MRN: [facility]:[id number] date: 1995 Sex: F Assigned Patient Location: [facility] Current Patient Location: Accession/Order Number: [id number] Exam Date: 05/17/2024 08:30 Report Date: 05/18/2024 [...] Single live intrauterine . Electronically authenticated by: FILIPPO HENDRICKSON Date: 05/18/2024 05:00 Dictated By: Filippo Hendrickson M.D. Signed By: 05/18/24 0503 DD/ 0500 TD/TT: Salon Sales Consultant: Procedure Note Radiology, Radiologist, MD - 05/20/2024 [place] [address] Ultrasound Report Signed Patient: JENIFFER GARCIAMR#: [id number] : 1995Acct:[id number] Age/Sex: 29 / FADM Date: 05/17/24 Loc: [facility] Attending Dr: Sammy Cole D.O. Ordering Physician: Sammy Cole D.O. Date of Service: 05/17/24 Procedure(s): US OB transvaginal Accession Number(s): [id number] cc: Sammy Cole D.O.; KEENAN FATIMA [place] [id number] Patient Name: JENIFFER GARCIA MRN: [facility]:[id number] date: 1995 Sex: F Assigned Patient Location: [facility] Current Patient Location: Accession/Order Number: [id number] Exam Date: 05/17/2024 08:30 Report Date: 05/18/2024 [...] Single live intrauterine . Electronically authenticated by: FILIPPO HENDRICKSON Date: 05/18/2024 05:00 Dictated By: Filippo Hendrickson M.D. Signed By:05/18/24 0503 DD/ 0500 TD/TT: Salon Sales Consultant: us Sammy Cole DO [facility] Final Result documented in this encounter Visit Diagnoses Not on filedocumented in this encounter Care Teams Chocolate Finisher Relationship Specialty Start Date End Date Keenan Fatima MD [address] [place] [address] PCP - General Family Medicine 6/8/23 6/29/25 Julia Miramontes MD [address] [facility] [place] [phone] PCP - General Family Medicine 12/23/24 Elissa Hartman PA [address] [place] [address] Physician Clinical Trial Manager Family Medicine 12/01/22 documented as of this encounter
--- OUTSIDE RECORDS SUMMARY | 2024-12-23 15:54 | XMS_ITS | Encounter Summary ---
Author Organization [facility] Address [address] [place] [address] Care Team Providers Care Tool Clerk Name Role Phone Elissa Hartman Unavailable [phone] Alessandra Deluna MD Primary Care Provider [phone] Encounter Details Date Type Department Care Team (Late st Contact Info) Description 12/10/2024 Bamboo flowsheet [facility] BCP OB [address] [facility] [address] Paulina James PA [address] [facility] [address] [place], [facility] Social History Tobacco Use Types Packs/Day [...] week 12/01/2022 How often do you attend anabaptist or roman catholic serv ices? Never 12/01/2022 Do you belong to any clubs o r organizations such as anabaptist groups, unions, fraternal or athletic groups, or [...] Recorded Patient Health Questionnaire-2 Score 0 12/01/2022 [facility] of Occupat ional Health - Occupational Stress [...] on filedocumented in this encounter Care Teams Tool Clerk Relationship Specialty Start Date End Date Alessandra Deluna MD [address] [place] [address] PCP - General Family Medicine 12/01/22 12/22/24 Elissa Hartman PA [address] [place] [address] Physician Medical Librarian Family Medicine 12/01/22 documented as of this encounter
--- OUTSIDE RECORDS SUMMARY | 2024-12-23 15:54 | XMS_ITS | Encounter Summary ---
Author Organization [facility] Address [address] [place] [address] Care Team Providers Care Enamel Burner Name Role Phone Elissa Hartman PA Unavailable [phone] Alessandra Deluna MD Primary Care Provider [phone] Julia Miramontes MD Primary Care Provider [phone] Encounter Details Date Type Department Care Team (Late st Contact Info) Description 08/05/2024 Abstract [facility] BCP OB [address] [facility] [place] [address] Stoney Cole, [address] [facility] [address] [place], [place] [id number] Social History Tobacco Use Types Packs/Day Years [...] How often do you attend mormon or hinduism serv ices? Never 12/01/2022 Do you belong [...] Recorded Patient Health Questionnaire-2 Score 0 12/01/2022 [facility] of Occupat ional Health - [...] on filedocumented in this encounter Care Teams Enamel Burner Relationship Specialty Start Date End Date Alessandra Deluna MD [address] [place] [address] PCP - General Family Medicine 12/01/22 12/22/24 Julia Miramontes MD [address] [place] [address] PCP - General Family Medicine 12/23/24 Elissa Hartman PA [address] [place] [address] Manager Family Medicine 12/01/22 documented as of this encounter
--- OUTSIDE RECORDS SUMMARY | 2024-12-23 15:54 | XMS_ITS | Encounter Summary ---
Author Organization [facility] Address [address] [place] [address] Care Team Providers Care Non Destructive Evaluation Manager Name Role Phone Elissa Hartman Unavailable [phone] Alessandra Deluna MD Primary Care Provider [phone] Encounter Details Date Type Department Care Team (Late st Contact Info) Description 12/19/2024 Clinisync Result Encounter [facility] External Department Unsolicited Stoney Cole, DO [address] [facility] [address] [place] [address] [place], [place] [id number] Social History Tobacco Use Types Packs/Day Years [...] week 12/01/2022 How often do you attend holiness or anglican serv ices? Never 12/01/2022 Do you belong to any clubs o r organizations such as holiness groups, unions, fraternal or athletic groups, or [...] Recorded Patient Health Questionnaire-2 Score 0 12/01/2022 [facility] of Occupat ional Health - [...] Procedure Name Priority Date/Time Associated Diagnosis Comments ALL CBC WITH AUTO DIFF Routine 12/19/2024 6:43 AM EDT documented in this encounter Results * (ABNORMAL) ALL CBC WITH AUTO DIFF (12/19/2024 6:43 AM EDT) [facility] WBC 13.3(H) 4.0 - 11.0 10 3/uL [facility] TBH RBC 3.38(L) 4.20 - 5.40 10 6/uL TB[facility] TBH HGB 10.0(L) 12.0 - 16.0 g/dL TBH TBH HCT 30.5(L) 36.0 - 48.0 % [facility] MCV 90.2 81.0 - 99.0 fL TBH TBH MCH 29.6 26.7 - 34.0 pg TBH TBH MCHC 32.8 29.9 - 35.2 g/dL TBH TBH RDW 15.6(H) 11.0 - 15.0 % TBH TBH PLT 301 150 - 450 10 3/uL TBH TBH MPV 10.1 9.5 - 13.5 fL TBH NEUTROPHILS PERCENT AUTO 73.1 43.0 - 75.0 % [facility] LYMPHOCYTES PERCENT AUTO 18.9(L) 20.5 - 60.0 % [facility] MONOCYTES PERCENT AUTO 6.2 1.7 - 12.0 % TBH TBH EO % 0.5(L) 0.9 - 7.0 % [facility] BASOPHILS PERCENT AUTO 0.3 0.2 - 2.0 % [facility] IMMATURE GRANULOCYTES PCT AUTO 1.0(H) 0.0 - 0.5 % [facility] NEUTROPHILS ABSOLUTE AUTO 9.7(H) 1.4 - 6.5 10 3/uL TBH LYMPHOCYTES ABSOLUTE AUTO 2.5 1.2 - 3.8 10 3/uL TB[facility] MONOCYTES ABSOLUTE AUTO 0.8 0.3 - 0.8 10 3/uL TBH TBH EO # 0.1 0.0 - 0.7 10 3/uL TB[facility] BASOPHILS ABSOLUTE AUTO 0.0 0.0 - 0.1 10 3/uL [facility] IMMATURE GRANULOCYTES ABS AUTO 0.13(H) 0.00 - 0.03 10 3/uL [facility] 12/19/2024 6:43 AM EDT 12/19/2024 6:56 AM EDT Narrative [facility] - 12/19/2024 7:11 AM EDT Stoney Douglas DO [facility] Final Result [facility] documented in this encounter Visit Diagnoses Not on filedocumented in this encounter Care Teams Non Destructive Evaluation Manager Relationship Specialty Start Date End Date Alessandra Deluna MD [address] [place] [address] PCP - General Family Medicine 12/01/22 12/22/24 Elissa Hartman PA [address] [place] [address] Physician Cotton Stripper Family Medicine 12/01/22 documented as of this encounter
--- OUTSIDE RECORDS SUMMARY | 2024-12-23 15:55 | XMS_ITS | Encounter Summary ---
Author Organization [facility] Address [address] [place] [address] Care Team Providers Care Textile Screen Maker Name Role Phone Elissa Hartman PA Unavailable [phone] Alessandra Deluna MD Primary Care Provider [phone] Julia Miramontes MD Primary Care Provider [phone] Encounter Details Date Type Department Care Team (Late st Contact Info) Description 05/17/2024 Abstract [facility] BCP OB [address] [facility] [address] Stoney Cole, [address] [facility] [address] [place], [place] [id number] Social History Tobacco Use Types Packs/Day Years [...] week 12/01/2022 How often do you attend pentecostal or hoahaoism serv ices? Never 12/01/2022 Do you belong to any clubs o r organizations such as pentecostal groups, unions, fraternal or athletic groups, or [...] Recorded Patient Health Questionnaire-2 Score 0 12/01/2022 [facility] of Occupat ional Health - Occupational [...] place to sleep or slept in a residential (including now)? No 12/01/2022 Estimated Date of [...] on filedocumented in this encounter Care Teams Textile Screen Maker Relationship Specialty Start Date End Date Alessandra Deluna MD [address] [place] [address] PCP - General Family Medicine 12/01/22 12/22/24 Julia Miramontes MD [address] [place] [address] PCP - General Family Medicine 12/23/24 Elissa Hartman PA [address] [place] [address] Physician Practical Ministries Professor Family Medicine 12/01/22 documented as of this encounter
--- OUTSIDE RECORDS SUMMARY | 2024-12-23 15:55 | XMS_ITS | Clinical Summary ---
Author Organization [facility] Address [address] [place] [address] Care Team Providers Care Biology Instructor Name Role Phone Elissa Hartman PA Unavailable [phone] Julia Miramontes MD Primary Care Provider [phone] Allergies Active Allergy Reactions Criticality Noted Date [...] Date Diagnosed Date 12 weeks gestation of ([facility]) 2023 Second trimester ([facility]) 06/17/2024 Estimated Date of Delivery Comme nts Yes 12/25/2024 Based on last me nstrual period of 03/20/2024 Encounters Date Type Department Care Team Description 12/19/2024 Clinisync Result Encounter [facility] External Department Unsolicited Sammy Cole, 12/18/2024 Clinisync Result Encounter NOMS External Department Unsolicited Sammy Cole, 12/16/2024 Abstract [facility] [address] [place] [address] [place] [address] Marlen Tejeda LPN 12/10/2024 1:00 PM EDT Routine [facility] [address] [place] [address] [place] [address] Paulina James PA Third trimester ([facility]); 37 weeks gestation of ([facility]) 12/10/2024 Bamboo flowsheet [facility] [address] [place] [address] Paulina James PA 12/09/2024 Travel 12/04/2024 2:30 PM EDT Routine [facility] [address] [place] [address] Sammy Cole DO Third trimester ([facility]); 36 weeks gestation of ([facility]) 12/04/2024 Bamboo flowsheet [facility] [address] [place] [address] [place] [address] Sammy Cole DO 12/01/2024 Travel 11/27/2024 1:50 PM EDT Routine [facility] [address] [place] [address] Paulina James PA Third trimester ([facility]); 36 weeks gestation of ([facility]) 11/27/2024 Bamboo flowsheet [facility] [address] [place] [address] [place] [address] Paulina James PA 11/21/2024 Travel 11/20/2024 11:10 AM EDT Routine [facility] [address] [place] [address] [place] [address] Sammy Cole DO Third trimester ([facility]); 35 weeks gestation of ([facility]) 11/20/2024 Bamboo flowsheet [facility] [address] [place] [address] [place] [address] Sammy Cole 11/13/2024 Travel 11/12/2024 Clinisync Result Encounter NOMS External Department Unsolicited Sammy Cole, 11/06/2024 8:30 AM EDT Routine [facility] [address] [place] [address] Janis Maradiaga, ASH Third trimester ([facility]); 32 weeks gestation of ([facility]) 11/06/2024 Bamboo flowsheet [facility] [address] [place] [address] Janis Maradiaga, ASH 10/30/2024 Travel 10/22/2024 8:30 AM EDT Routine [facility] [address] [place] [address] Sammy Cole, Third trimester ([facility]); Heart palpitations 10/22/2024 8:00 AM EDT Ancillary Procedure [facility] [address] [place] [address] size inconsistent with dates ([facility]) 10/22/[address] [facility] [address] [place] [address] Marlen Tejeda LPN 10/15/2024 Travel 10/08/2024 10:10 AM EDT Routine [facility] [address] [place] [address] Sammy Cole, Third trimester ([facility]); 28 weeks gestation of ([facility]); size inconsistent with dates ([facility]) 10/08/2024 Bamboo flowsheet [facility] [address] [place] [address] Sammy Cole DO 10/01/2024 Travel 09/26/2024 9:30 AM EDT Ancillary Procedure [facility] [address] [place] [address] Encounter for follow-up ultrasound of anatomy ([facility]) 09/26/2024 Clinisync Result Encounter [facility]S External Department Unsolicited Paulina James PA from Last 3 Months Family History Medical [...] week 12/01/2022 How often do you attend latter day or samaritan serv ices? Never 12/01/2022 Do you belong to any clubs o r organizations such as latter day groups, unions, fraternal or athletic groups, or [...] Recorded Patient Health Questionnaire-2 Score 0 12/01/2022 [facility] of Occupat ional Health - Occupational [...] place to sleep or slept in a custodial (including now)? No 12/01/2022 Estimated Date of [...] Comments ALL CBC WITH AUTO DIFF Routine 6:43 AM EDT [facility] CBC WITH PLATELET NO DIFFERENTIAL Routine 12/18/2024 12:55 AM EDT [facility] DRUG SCREEN RAPID (URINE) Routine 12/18/2024 12:05 AM EDT POCT URINALYSIS DIPSTICK Routine 12/10/2024 1:14 PM EDT Third trimester ([facility]) POCT URINALYSIS DIPSTICK Routine 12/04/2024 2:53 PM EDT Third trimester ([facility]) 36 weeks gestation of ([facility]) POCT URINALYSIS DIPSTICK Routine 11/27/2024 2:12 PM EDT Third trimester ([facility]) CULTURE, GROUP B STREP WITH SUSCEPTIBLITY Routine 11/27/2024 2:00 PM EDT Third trimester ([facility]) POCT URINALYSIS DIPSTICK Routine 11/20/2024 11:22 AM EDT Third trimester ([facility]) CA ECHO DOPPLER COMPLETE 11/12/2024 3:20 PM EDT POCT URINALYSIS DIPSTICK Routine 11/06/2024 8:39 AM EDT Third trimester ([facility]) US OB FOLLOW UP TRANSABDOMINAL APPROACH Routine 10/22/2024 8:31 AM EDT size inconsistent with dates ([facility]) POCT URINALYSIS DIPSTICK Routine 10/08/2024 10:26 AM EDT Third trimester ([facility]) US OB LIMITED 1+ FETUSES Routine 09/26/2024 10:08 AM EDT Encounter for follow-up ultrasound of anatomy ([facility]) ALL CBC WITH AUTO DIFF Routine 9:11 AM EDT GLUCOSE 1 HOUR Routine 09/26/2024 9:11 AM EDT from Last 3 Months Results * (ABNORMAL) ALL CBC WITH AUTO DIFF (12/19/2024 6:43 AM EDT) Only the most recent of2 resultswithin the time period is included. [facility] WBC 13.3(H) 4.0 - 11.0 10 [...] Narrative CLINISYNC - 12/19/2024 7:11 AM EDT us Sammy Douglas DO [facility] Final [facility] * ([facility]NORMAL) [facility] CBC WITH PLATELET NO DIFFERENTIAL (12/18/2024 12:55 AM EDT) Pathologist [facility] TB WBC 10.2 4.0 - 11.0 10 3/uL TBH TBH RBC 3.69(L) 4.20 - 5.40 10 6/uL TBH TBH HGB 11.0(L) 12.0 - 16.0 g/dL TBH TBH HCT 32.8(L) 36.0 - 48.0 % TBH TBH MCV 88.9 81.0 - 99.0 fL TBH TBH MCH 29.8 26.7 - 34.0 pg TBH TBH MCHC 33.5 29.9 - 35.2 g/dL TBH TBH RDW 15.4(H) 11.0 - 15.0 % TBH TBH PLT 325 150 - 450 10 3/uL TBH TBH MPV 10.9 9.5 - 13.5 fL TB 12/18/2024 12:5 5 AM EDT 12/18/2024 2:31 AM EDT Narrative CLINISYNC - 12/18/2024 2:34 AM EDT Sammy Cosbyo DO CLINISYNC Final Result [facility] * [facility] DRUG SCREEN RAPID (URINE) (12/18/2024 12:05 AM EDT) Pathologist [facility] CANNABINOID SCREEN URINE NEGATIVE NEGATIVE TBH PHENCYCLIDINE SCREEN URINE NEGATIVE NEGATIVE TBH COCAINE SCREEN URINE NEGATIVE NEGATIVE TBH METHAMPHETAMINES SCREEN URINE NEGATIVE NEGATIVE TBH OPIATE SCREEN URINE NEGATIVE NEGATIVE TBH AMPHETAMINE SCREEN URINE NEGATIVE NEGATIVE TBH BENZODIAZEPINES SCREEN URINE NEGATIVE NEGATIVE TBH TRICYCLIC ANTIDEPRESSANT URINE NEGATIVE NEGATIVE TBH METHADONE SCREEN URINE NEGATIVE NEGATIVE TBH BARBITURATES SCREEN URINE NEGATIVE NEGATIVE TBH OXYCODONE SCREEN URINE NEGATIVE NEGATIVE TBH BUPRENORPHINE SCREEN URINE NEGATIVE NEGATIVE TBH Comment: DRUG CLASS TEST SYSTEM CUT-OFF CONCENTRATIONS ARE FOLLOWS: AMP (Amphetamine): 500 ng/mL BAR (Barbiturates): 200 ng/mL BZO (Benzodiazepines): 150 ng/mL BUP (Buprenorphine): 10 ng/mL MEHUL (Cocaine): 150 ng/mL mAMP (Methamphetamine): 500 ng/mL MTD (Methadone): 200 ng/mL OPI (Opiates): 100 ng/mL OXY (Oxycodone): 100 ng/mL PCP (Phencyclidine): 25 ng/mL THC (Cannabinoids): 50 ng/mL TCA (Trycyclic Antidepressants): 300 ng/mL 12/18/2024 12:0 5 AM EDT 12/18/2024 2:31 AM EDT Narrative CLINISYNC - 12/18/2024 2:47 AM EDT us Sammy Douglas DO CLINISYNC Final Result Performing Organization Address City/[facility]/ZIP Co de Phone Number CLINISYNC [facility] * POCT urinalysis dipstick manually resulted (12/10/2024 [...] - Positive Urine 12/10/2024 1:14 PM EDT us Paulina BAJWA POINT OF CARE TEST ENTER/EDIT OR DERABLES Final Result * CULTURE, GROUP B STREP WITH SUSCEPTIBLITY (11/27/2024 2:00 PM EDT) Swab 11/27/2024 2:00 PM EDT us Paulina BAJWA LAB BLOOD ORDERABLES Final Resul t EXTERNAL LAB * CA ECHO DOPPLER COMPLETE (11/12/2024 3:20 PM EDT) Anatomical Region Laterality Modality Other 11/12/2024 3:20 PM EDT Narrative 11/12/2024 3:21 [place] [address] Cardiology Report Signed Patient: JENIFFER GARNETT MR#: [id number] : 1995 Acct:[id number] Age/Sex: 29 / F ADM Date: 11/12/24 Loc: CARD Attending Dr: Sammy Cole D.O. Ordering Physician: Sammy Cole D.O. Date of Service: 11/12/24 Procedure(s): CA echo doppler complete Accession Number(s): [id number] cc: Sammy Cole D.O.; Julia Miramontes D.O. Patient Name: JENIFFER GARNETT MR#: [id number] : 1995 Exam Date: 11/12/2024 Ordering Doctor: [...] Signed By: 11/12/24 1521 DD/ 1520 TD/TT: Strategic Planning Analyst: Procedure Note Radiology, Radiologist, - 11/12/2024 [place] [address] Cardiology Report Signed Patient: JENIFFER GARNETTMR#: [id number] : 1995Acct:[id number] Age/Sex: 29 / FADM Date: 11/12/24 Loc: CARD Attending Dr: Sammy Cole D.O. Ordering Physician: Sammy Cole D.O. Date of Service: 11/12/24 Procedure(s): CA echo doppler complete Accession Number(s): [id number] cc: Sammy Cole D.O.; Julia Miramontes D.O. Patient Name: JENIFFER GARNETT MR#: [id number] : 1995 Exam Date: 11/12/2024 Ordering Doctor: [...] PEACE Signed By:11/12/24 1521 DD/ 1520 TD/TT: Strategic Planning Analyst: us Sammy Douglas DO CLINISYNC IMAGING Final [...] II, MD, PHD at 22-Oct-2024 07:05:21 PM [facility] Procedure Note Rodney Garrison MD - [...] signed by RODNEY GARRISON II, MD, PHD 07:05:21 PM [facility] us Sammy Cole DO [facility] OB US PROCEDURES Final Resul t * [...] II, MD, PHD at 27-Sep-2024 08:29:09 AM [facility] Procedure Note Rodney Garrison MD - [...] GARRISON II, MD, PHDat 27-Sep-2024 08:29:09 AM [facility] us Sammy Cole DO IMG OB US PROCEDURES Final Resul t * GLUCOSE 1 HOUR (09/26/2024 9:11 AM EDT) GLUCOSE 1 HOUR 99 <130 mg/dL TBH 09/26/2024 9:11 AM EDT 09/26/2024 9:12 AM EDT Narrative CLINISYNC - 09/26/2024 9:30 AM EDT us Paulina BAJWA LAB BLOOD ORDERABLES Final Resul t [facility] from Last 3 Months Insurance [employer] MEDICA[employer] Care Teams Biology Instructor Relationship Specialty Start Date End Date Julia Miramontes MD [address] [place] [address] PCP - General Family Medicine 12/23/[address] [place] [address] Physician Soil Science Professor Family Medicine 12/01/22
--- OUTSIDE RECORDS SUMMARY | 2024-12-23 15:55 | XMS_ITS | Referral Summary ---
Author Organization [facility] Address [address] [place] [address] Care Team Providers Care Shipping Checker Name Role Phone Julia Miramontes DO Primary Care Provider [phone] Encounters Date Type Department Care Team Description 11/06/2024 2:30 PM EDT [facility] Visit [facility] Heart at [facility] [address] [place] [address] Edwardo Ho MD Palpitations (Primary [...] Plan of Treatment Not on file Insurance [facility] MEDICAID Care Teams Shipping Checker Relationship Specialty Start Date End Date Julia Miramontes DO [address] [address] PCP - General Family Medicine 10/23/24
--- OUTSIDE RECORDS SUMMARY | 2024-12-23 15:55 | XMS_ITS | Clinical Summary ---
Author Organization [facility] Address [address] [place] [address] Care Team Providers Care Fork Lift Mechanic Name Role Phone Julia Miramontes DO Primary Care Provider [phone] Allergies Active Allergy Reactions Criticality Noted Date [...] Description 11/06/2024 2:30 PM EDT Office Visit [facility] Heart at [facility] [address] [place] [address] Edwardo Ho MD Palpitations (Primary [...] patient's age to complete this topic Insurance [facility] MEDICAID Care Teams Fork Lift Mechanic Relationship Specialty Start Date End Date Julia Miramontes DO [address] [facility] [address] PCP - General Family Medicine 10/23/24
--- OUTSIDE RECORDS SUMMARY | 2024-12-23 15:55 | XMS_ITS | Encounter Summary ---
Author Organization [facility] Address [address] [place] [address] Care Team Providers Care Trap Puller Name Role Phone Elissa Hartman Unavailable [phone] Alessandra Deluna MD Primary Care Provider [phone] Encounter Details Date Type Department Care Team (Late st Contact Info) Description 12/18/2024 Clinisync Result Encounter [facility] External Department Unsolicited Stoney Cole, DO [address] [facility] [address] [place], [place] [id number] Social History Tobacco Use Types Packs/Day Years [...] week 12/01/2022 How often do you attend denominational or confucianism serv ices? Never 12/01/2022 Do you belong to any clubs o r organizations such as denominational groups, unions, fraternal or athletic groups, or [...] Procedure Name Priority Date/Time Associated Diagnosis Comments [facility] CBC WITH PLATELET NO DIFFERENTIAL Routine 12/18/2024 12:55 AM EDT [facility] DRUG SCREEN RAPID (URINE) Routine 12/18/2024 12:05 AM EDT documented in this encounter Results * (ABNORMAL) [facility] CBC WITH PLATELET NO DIFFERENTIAL (12/18/2024 12:55 AM EDT) TBH WBC 10.2 4.0 - 11.0 10 3/uL TBH TBH RBC 3.69(L) 4.20 - 5.40 10 6/uL TBH TBH HGB 11.0(L) 12.0 - 16.0 g/dL TBH TBH HCT 32.8(L) 36.0 - 48.0 % TBH TB MCV 88.9 81.0 - 99.0 fL TBH TB MCH 29.8 26.7 - 34.0 pg TBH TB MCHC 33.5 29.9 - 35.2 g/dL TB TB RDW 15.4(H) 11.0 - 15.0 % TBH TBH PLT 325 150 - 450 10 3/uL TBH TBH MPV 10.9 9.5 - 13.5 fL TB 12/18/2024 12:5 5 AM EDT 12/18/2024 2:31 AM EDT Narrative CLINISYNC - 12/18/2024 2:34 AM EDT Stoney Douglas DO CLINISYNC Final Result [facility] * TB DRUG SCREEN RAPID (URINE) (12/18/2024 12:05 AM EDT) Pathologist [facility] CANNABINOID SCREEN URINE NEGATIVE NEGATIVE TBH PHENCYCLIDINE [...] CLINISYNC - 12/18/2024 2:47 AM EDT us Stoney Cole DO CLINISYNC Final Result [facility] documented in this encounter Visit Diagnoses Not on filedocumented in this encounter Care Teams Trap Puller Relationship Specialty Start Date End Date Alessandra Deluna MD [address] [place] [address] PCP - General Family Medicine 12/01/22 12/22/24 Elissa Hartman PA [address] [place] [address] Physician Blender Machine Operator Family Medicine 12/01/22 documented as of this encounter
== END 2024-12-20 15:35 | disposition home or self-care (01) | DRG 807 ==
PROVIDERS: Admitting Provider Obstetrics & Gynecology; PCP Family Medicine; Visit Provider Obstetrics & Gynecology
DX: O99.214 Obesity complicating childbirth (principal); Z37.0 Single live birth; E66.01 Morbid (severe) obesity due to excess calories; O99.334 Smoking (tobacco) complicating childbirth; F17.290 Nicotine dependence, other tobacco product, uncomplicated; O70.0 First degree perineal laceration during delivery; Z3A.39 39 weeks gestation of pregnancy; Z86.16 Personal history of COVID-19
CPT/HCPCS: 36415; 51702; 59050; 59410; 80307; 85025; 85027; 86850; 86900; 86901; J2405; J2795

== ENCOUNTER 2024-12-24 07:51 | Outpatient (OUT) | payer OTHER, SELFPAY ==
--- OUTSIDE RECORDS SUMMARY | 2024-12-10 13:00 | XMS_ITS | Encounter Summary ---
Author Organization [facility] Address [address] [place] [address] Care Team Providers Care Seam Stay Stitcher Name Role Phone Elissa Hartman Unavailable [phone] Alessandra Deluna MD Primary Care Provider [phone] Reason for Visit * Reason Comments Routine Visit Encounter Details Date Type Department Care Team (Late st Contact Info) Description 12/10/2024 1:00 PM EDT Routine [facility] OB [address] [place] [address] Paulina James PA [address] [facility] [address] [place], [place] [id number] Third trimester ([facility]); 37 weeks gestation of ([facility]) Social History Tobacco Use Types Packs/Day Years [...] week 12/01/2022 How often do you attend taoism or oriental orthodox serv ices? Never 12/01/2022 Do you belong to any clubs o r organizations such as taoism groups, unions, fraternal or athletic groups, or [...] Recorded Patient Health Questionnaire-2 Score 0 12/01/2022 [facility] Occupat ional Health - Occupational [...] Diagnosis Date Noted 12 weeks gestation of ([facility]) 06/17/2024 Second trimester ([facility]) 06/17/2024 Resolved Ambulatory Problems Diagnosis Date Noted [...] ASSESSMENT & PLAN ICD-10-CM 1. Third trimester ([facility]) Z34.93 POCT urinalysis dipstick manually resulted 2. 37 weeks gestation of ([facility]) Z3A.37 Return OB: Patient presents today for [...] Care Team (Late st Contact Info) Description 01/29/2025 10:30 AM EDT Visit [facility] OB [address] [address] Paulina James PA [address] [facility] [place] [address] documented as of this encounter Procedures Procedure Name Priority Date/Time Associated Diagnosis Comments POCT URINALYSIS DIPSTICK Routine 12/10/2024 1:14 PM EDT Third trimester ([facility]) documented in this encounter Results * POCT [...] this encounter Visit Diagnoses Diagnosis Third trimester ([facility]) state, incidental 37 weeks gestation of ([facility]) documented in this encounter Care Teams Seam Stay Stitcher Relationship Specialty Start Date End Date Alessandra Deluna MD [address] [place] [address] PCP - General Family Medicine 12/01/22 12/22/24 Elissa Hartman PA [address] [place] [address] Physician Adjuster Arbitrator Family Medicine 12/01/22 documented as of this encounter
--- OUTSIDE RECORDS SUMMARY | 2024-12-24 07:55 | XMS_ITS | Encounter Summary ---
Author Organization [facility] Address [address] [place] [address] Care Team Providers Care Ship Erector Name Role Phone Elissa Hartman Unavailable [phone] Alessandra Deluna MD Primary Care Provider [phone] Encounter Details Date Type Department Care Team (Late st Contact Info) Description 12/10/2024 Bamboo flowsheet [facility] [address] [facility] [address] Paulina James PA [address] [place], [facility] Social History Tobacco Use Types Packs/Day Years [...] week 12/01/2022 How often do you attend restorationism or voodoo serv ices? Never 12/01/2022 Do you belong to any clubs o r organizations such as restorationism groups, unions, fraternal or athletic groups, or [...] Recorded Patient Health Questionnaire-2 Score 0 12/01/2022 [facility] of Occupat ional Health - Occupational [...] AM EDT Visit [facility] OB [address] [facility] [phone] Paulina James PA [address] [place] [address] documented as of this encounter Visit Diagnoses Not on filedocumented in this encounter Care Teams Ship Erector Relationship Specialty Start Date End Date Alessandra Deluna MD [address] [place] [address] PCP - General Family Medicine 12/01/22 12/22/24 Elissa Hartman PA [address] [place] [address] Physician Chef Teacher Family Medicine 12/01/22 documented as of this encounter
--- OUTSIDE RECORDS SUMMARY | 2024-12-24 07:55 | XMS_ITS | Encounter Summary ---
Author Organization [facility] Address [address] [place] [address] Care Team Providers Care Felled Seam Operator Chainstitch Name Role Phone Elissa Hartman PA Unavailable [phone] Alessandra Deluna MD Primary Care Provider [phone] Julia Miramontes MD Primary Care Provider [phone] Encounter Details Date Type Department Care Team (Late st Contact Info) Description 08/05/2024 Abstract [facility] OB [address] [facility] [place] [address] Stoney Cole, [address] [facility] [address] [place], [place] [id number] Social History Tobacco Use Types Packs/Day Years [...] week 12/01/2022 How often do you attend amish or mosque serv ices? Never 12/01/2022 Do you belong to any clubs o r organizations such as amish groups, unions, fraternal or athletic groups, or [...] Recorded Patient Health Questionnaire-2 Score 0 12/01/2022 [facility] of Occupat ional Health - Occupational Stress [...] place to sleep or slept in a longterm (including now)? No 12/01/2022 Estimated Date of [...] AM EDT Visit [facility] OB [address] [facility] [place] [address] Paulina James PA [address] [facility] [address] [place], [place] [id number] documented as of this encounter Visit Diagnoses Not on filedocumented in this encounter Care Teams Felled Seam Operator Chainstitch Relationship Specialty Start Date End Date Alessandra Deluna MD [address] [place] [address] PCP - General Family Medicine 12/01/22 12/22/24 Julia Miramontes MD [address] [place] [address] [place] [address] PCP - General Family Medicine 12/23/24 Elissa Hartman PA [address] [place] [address] Physician Rn Imcu Family Medicine 12/01/22 documented as of this encounter
--- OUTSIDE RECORDS SUMMARY | 2024-12-24 07:55 | XMS_ITS | Referral Summary ---
Author Organization [facility] Address [address] [place] [address] Care Team Providers Care Press Bucker Name Role Phone Julia Miramontes DO Primary Care Provider [phone] Encounters Date Type Department Care Team Description 11/06/2024 2:30 PM EDT Office Visit [facility] Heart at [facility] [address] [place] [address] Edwardo Ho MD Palpitations (Primary [...] Plan of Treatment Not on file Insurance [facility] MEDICAID Care Teams Press Bucker Relationship Specialty Start Date End Date Julia Miramontes DO [address] [address] PCP - General Family Medicine 10/23/24
--- OUTSIDE RECORDS SUMMARY | 2024-12-24 07:55 | XMS_ITS | Encounter Summary ---
Author Organization [facility] Address [address] [place] [address] Care Team Providers Care Senior Instructional Designer Name Role Phone Elissa Hartman Unavailable [phone] Alessandra Deluna MD Primary Care Provider [phone] Encounter Details Date Type Department Care Team (Late st Contact Info) Description 12/18/2024 Clinisync Result Encounter NOMS External Department Unsolicited Stoney Cole, DO [address] [facility] [address] [place], [place] [id number] Social History Tobacco Use Types Packs/Day Years [...] week 12/01/2022 How often do you attend orthodox or mosque serv ices? Never 12/01/2022 Do you belong to any clubs o r organizations such as orthodox groups, unions, fraternal or athletic groups, or [...] Recorded Patient Health Questionnaire-2 Score 0 12/01/2022 [facility] of Occupat ional Health - [...] place to sleep or slept in a detention (including now)? No 12/01/2022 Estimated Date of [...] AM EDT Visit [facility] B[facility] OB [address] [facility] [place] [phone] Paulina James PA [address] [facility] [address] documented as of this encounter Procedures Procedure Name Priority Date/Time Associated Diagnosis Comments [facility] CBC WITH PLATELET NO DIFFERENTIAL Routine 12/18/2024 12:55 AM EDT [facility] DRUG SCREEN RAPID (URINE) Routine 12/18/2024 12:05 AM EDT documented in this encounter Results * (ABNORMAL) [facility] CBC WITH PLATELET NO DIFFERENTIAL (12/18/2024 12:55 [...] TBH MPV 10.9 9.5 - 13.5 fL TBH 12/18/2024 12:5 5 AM EDT 12/18/2024 2:31 AM EDT Narrative CLINISYNC - 12/18/2024 2:34 AM EDT Stoney Douglas DO CLINISYNC Final Result [facility] * TB DRUG SCREEN RAPID (URINE) (12/18/2024 12:05 AM EDT) CANNABINOID SCREEN URINE NEGATIVE NEGATIVE TBH PHENCYCLIDINE [...] - 12/18/2024 2:47 AM EDT us Stoney Douglas DO [facility] documented in this encounter Visit Diagnoses Not on filedocumented in this encounter Care Teams Senior Instructional Designer Relationship Specialty Start Date End Date Alessandra Deluna MD [address] [place] [address] PCP - General Family Medicine 12/01/22 12/22/24 Elissa Hartman PA [address] [place] [address] Physician Kiln Fireman Family Medicine 12/01/22 documented as of this encounter
--- OUTSIDE RECORDS SUMMARY | 2024-12-24 07:55 | XMS_ITS | Encounter Summary ---
Author Organization [facility] Address [address] [place] [address] Care Team Providers Care Fountain Server Name Role Phone Elissa Hartman PA Unavailable [phone] Alessandra Deluna MD Primary Care Provider [phone] Julia Miramontes MD Primary Care Provider Encounter Details Date Type Department Care Team (Late st Contact Info) Description 07/17/2024 Abstract [facility] B[facility] OB [address] [facility] [place] [address] Stoney Cole, [address] [facility] [address] [place], [place] [id number] Social History Tobacco Use Types Packs/Day Years [...] How often do you attend orthodox or lutheran serv ices? Never 12/01/2022 Do you belong [...] Recorded Patient Health Questionnaire-2 Score 0 12/01/2022 [facility] of Occupat ional Health - Occupational [...] place to sleep or slept in a intermediate (including now)? No 12/01/2022 Estimated Date of [...] AM EDT Visit [facility] BCP OB [address] [facility] [place] [address] Paulina James PA [address] [facility] [address] [place], [place] [id number] documented as of this encounter Visit Diagnoses Not on filedocumented in this encounter Care Teams Fountain Server Relationship Specialty Start Date End Date Alessandra Deluna MD [address] [place] [address] PCP - General Family Medicine 12/01/22 12/22/24 Julia Miramontes MD [address] [place] [address] [place] [address] PCP - General Family Medicine 12/23/24 Elissa Hartman PA [address] [place] [address] Physician Housekeeper Manager Family Medicine 12/01/22 documented as of this encounter
--- OUTSIDE RECORDS SUMMARY | 2024-12-24 07:55 | XMS_ITS | Encounter Summary ---
Author Organization [facility] Address [address] [place] [address] Care Team Providers Care Digital Sales Representative Name Role Phone Elissa Hartman PA Unavailable [phone] Alessandra Deluna MD Primary Care Provider [phone] Julia Miramontes MD Primary Care Provider [phone] Encounter Details Date Type Department Care Team (Late st Contact Info) Description 07/26/2024 Orders Only [facility] [address] [facility] [place] [address] Brandie Estes MA [address] [facility] [place] [address] Social History Tobacco Use Types Packs/Day Years [...] week 12/01/2022 How often do you attend druze or quaker serv ices? Never 12/01/2022 Do you belong to any clubs o r organizations such as druze groups, unions, fraternal or athletic groups, or [...] Recorded Patient Health Questionnaire-2 Score 0 12/01/2022 [facility] Occupat ional [facility] - Occupational Stress Questionnaire Answer Date [...] place to sleep or slept in a fdc (including now)? No 12/01/2022 Estimated Date of [...] AM EDT Visit [facility] [address] [facility] [place] [address] Paulina James PA [address] [facility] [place] [address] documented as of this encounter Procedures Procedure Name Priority Date/Time Associated Diagnosis Comments PAP SMEAR Routine 07/15/2024 12:00 AM EST documented in this encounter Results * Pap Smear (07/15/2024 12:00 AM EST) Swab Cervical swab / Unknown us Paulina BAJWA LAB CYTOLOGY ORDERABLES Final Re sult EXTERNAL LAB documented in this encounter Visit Diagnoses Not on filedocumented in this encounter Care Teams Digital Sales Representative Relationship Specialty Start Date End Date Alessandra Deluna MD [address] [place] [address] PCP - General Family Medicine 12/01/22 12/22/24 Julia Miramontes MD [address] [place] [address] [place] [address] PCP - General Family Medicine 12/23/24 Elissa Hartman PA [address] [place] [address] Physician Sanitary Engineering Teacher Family Medicine 12/01/22 documented as of this encounter
--- OUTSIDE RECORDS SUMMARY | 2024-12-24 07:55 | XMS_ITS | Clinical Summary ---
Author Organization [facility] Address [address] [place] [address] Care Team Providers Care Archaeology Professor Name Role Phone Elissa Hartman Unavailable [phone] Julia Miramontes MD Primary Care Provider [phone] Allergies Active Allergy Reactions Criticality Noted Date [...] Date Diagnosed Date 12 weeks gestation of ([facility]) 2023 Second trimester ([facility]) 06/17/2024 Estimated Date of Delivery Comme nts Yes 12/25/2024 Based on last me nstrual period of 03/20/2024 Encounters Date Type Department Care Team Description 12/19/2024 Clinisync Result Encounter [facility] External Department Unsolicited Sammy Cole, 12/18/2024 Clinisync Result Encounter [facility]S External Department Unsolicited Sammy Cole, 12/16/2024 Abstract [facility] [place] [address] [place] [address] [place] [address] Marlen Tejeda LPN 12/10/2024 1:00 PM EDT Routine [facility] [address] [place] [address] [place] [address] Paulina James PA Third trimester ([facility]); 37 weeks gestation of ([facility]) 12/10/2024 Bamboo flowsheet [facility] [address] [place] [address] Paulina James PA 12/09/2024 Travel 12/04/2024 2:30 PM EDT Routine [facility] [address] [place] [address] Sammy Cole DO Third trimester ([facility]); 36 weeks gestation of ([facility]) 12/04/2024 Bamboo flowsheet [facility] [address] [place] [address] [place] [address] Sammy Cole DO 12/01/2024 Travel 11/27/2024 1:50 PM EDT Routine [facility] [address] [place] [address] Paulina James PA Third trimester ([facility]); 36 weeks gestation of ([facility]) 11/27/2024 Bamboo flowsheet [facility] [address] [place] [address] [place] [address] Paulina James PA 11/21/2024 Travel 11/20/2024 11:10 AM EDT Routine [facility] [address] [place] [address] [place] [address] Sammy Cole DO Third trimester ([facility]); 35 weeks gestation of ([facility]) 11/20/2024 Bamboo flowsheet [facility] [address] [place] [address] [place] [address] Sammy Cole 11/13/2024 Travel 11/12/2024 Clinisync Result Encounter [facility] External Department Unsolicited Sammy Cole, 11/06/2024 8:30 AM EDT Routine [facility] [address] [place] [address] Janis Maradiaga, ASH Third trimester ([facility]); 32 weeks gestation of ([facility]) 11/06/2024 Bamboo flowsheet [facility] [address] [place] [address] Janis Maradiaga, ASH 10/30/2024 Travel 10/22/2024 8:30 AM EDT Routine [facility] [address] [place] [address] Sammy Cole, Third trimester ([facility]); Heart palpitations 10/22/2024 8:00 AM EDT Ancillary Procedure [facility] [address] [place] [address] size inconsistent with dates ([facility]) 10/22/[address] [facility] [address] [place] [address] Marlen Tejeda LPN 10/15/2024 Travel 10/08/2024 10:10 AM EDT Routine [facility] [address] [place] [address] Sammy Cole, Third trimester ([facility]); 28 weeks gestation of ([facility]); size inconsistent with dates ([facility]) 10/08/2024 Bamboo flowsheet [facility] [address] [place] [address] Sammy Cole DO 10/01/2024 Travel 09/26/2024 9:30 AM EDT Ancillary Procedure [facility] [address] [place] [address] Encounter for follow-up ultrasound of anatomy ([facility]) 09/26/2024 Clinisync Result Encounter [facility] External Department [...] How often do you attend judaism or pentecostal serv ices? Never 12/01/2022 Do you belong [...] Recorded Patient Health Questionnaire-2 Score 0 12/01/2022 [facility] Occup[facility] ional Health - Occupational [...] place to sleep or slept in a prison (including now)? No 12/01/2022 Estimated Date of [...] AM EDT Visit [facility] OB [address] [facility] [place] [address] Paulina James PA [address] [place] [address] Health Maintenance Due Date Last Done Comments Influenza Vaccine (#1) 2025 03/09/2021, 2016, 04/08/2016 Procedures Procedure Name Priority Date/Time Associated Diagnosis Comments ALL CBC WITH AUTO DIFF Routine 6:43 AM EDT [facility] CBC WITH PLATELET NO DIFFERENTIAL Routine 12/18/2024 12:55 AM EDT [facility] DRUG SCREEN RAPID (URINE) Routine 12/18/2024 12:05 AM EDT POCT URINALYSIS DIPSTICK Routine 12/10/2024 1:14 PM EDT Third trimester ([facility]) POCT URINALYSIS DIPSTICK Routine 12/04/2024 2:53 PM EDT Third trimester ([facility]) 36 weeks gestation of ([facility]) POCT URINALYSIS DIPSTICK Routine 11/27/2024 2:12 PM EDT Third trimester ([facility]) CULTURE, GROUP B STREP WITH SUSCEPTIBLITY Routine 11/27/2024 2:00 PM EDT Third trimester ([facility]) POCT URINALYSIS DIPSTICK Routine 11/20/2024 11:22 AM EDT Third trimester ([facility]) CA ECHO DOPPLER COMPLETE 11/12/2024 3:20 PM EDT POCT URINALYSIS DIPSTICK Routine 11/06/2024 8:39 AM EDT Third trimester ([facility]) US OB FOLLOW UP TRANSABDOMINAL APPROACH Routine 10/22/2024 8:31 AM EDT size inconsistent with dates ([facility]) POCT URINALYSIS DIPSTICK Routine 10/08/2024 10:26 AM EDT Third trimester ([facility]) US OB LIMITED 1+ FETUSES Routine 09/26/2024 10:08 AM EDT Encounter for follow-up ultrasound of anatomy ([facility]) ALL CBC WITH AUTO DIFF Routine 9:11 AM EDT GLUCOSE 1 HOUR Routine 09/26/2024 9:11 AM EDT from Last 3 Months Results * (ABNORMAL) ALL CBC WITH AUTO DIFF (12/19/2024 6:43 AM EDT) Only the most recent of2 resultswithin the time period is included. [facility] WBC 13.3(H) 4.0 - 11.0 10 3/uL [...] us Sammy Douglas DO [facility] Final Result [facility] * (ABNORMAL) [facility] CBC WITH PLATELET NO DIFFERENTIAL (12/18/2024 12:55 AM EDT) TB WBC 10.2 4.0 - 11.0 10 [...] CLINISYNC - 12/18/2024 2:34 AM EDT Sammy Cole DO [facility] Final Result [facility] * TB DRUG SCREEN RAPID (URINE) [...] Narrative CLINISYNC - 12/18/2024 2:47 AM EDT Sammy Cole DO [facility] Final Result [facility] * POCT urinalysis dipstick manually resulted (12/10/2024 [...] PM EDT) Swab 11/27/2024 2:00 PM EDT Paulina BAJWA LAB BLOOD ORDERABLES Final Resul t EXTERNAL LAB * CA ECHO DOPPLER COMPLETE (11/12/2024 3:20 PM EDT) Anatomical Region Laterality Modality Other 11/12/2024 3:20 PM EDT Narrative 11/12/2024 3:21 [place] [address] Cardiology Report Signed Patient: JENIFFER GARNETT MR#: [id number] : 1995 Acct:[id number] Age/Sex: 29 / F ADM Date: 11/12/24 Loc: CARD Attending Dr: Sammy Cole D.O. Ordering Physician: Sammy Cole D.O. Date of Service: 11/12/24 Procedure(s): CA echo doppler complete Accession Number(s): [id number] cc: Sammy Cole D.O.; Julia Miramontes D.O. Patient Name: JENIFFER GARNETT MR#: [id number] : 1995 Exam Date: 11/12/2024 Ordering Doctor: [...] Signed By: 11/12/24 1521 DD/ 1520 TD/TT: Bit Sharpener Operator: Procedure Note Radiology, Radiologist, MD - 11/12/2024 [place] [address] Cardiology Report Signed Patient: JENIFFER GARNETTMR#: [id number] : 1995Acct:[id number] Age/Sex: 29 / FADM Date: 11/12/24 Loc: CARD Attending Dr: Sammy Cole D.O. Ordering Physician: Sammy Cole D.O. Date of Service: 11/12/24 Procedure(s): CA echo doppler complete Accession Number(s): [id number] cc: Sammy Cole D.O.; Julia Miramontes D.O. Patient Name: JENIFFER GARNETT MR#: [id number] : 1995 Exam Date: 11/12/2024 Ordering Doctor: [...] PEACE Signed By:11/12/24 1521 DD/ 1520 TD/TT: Bit Sharpener Operator: us Sammy Douglas DO [facility] IMAGING Final [...] II, MD, PHD at 22-Oct-2024 07:05:21 PM [facility] Procedure Note Rodney Garrison MD - [...] signed by RODNEY GARRISON II, MD, PHD [id number] 07:05:21 PM [facility] us Sammy MACHUCA OB US PROCEDURES Final Resul t * [...] II, MD, PHD at 27-Sep-2024 08:29:09 AM [facility] Procedure Note Rodney Garrison MD - [...] GARRISON II, MD, PHDat 27-Sep-2024 08:29:09 AM [facility] us Sammy FUNEZ OB US PROCEDURES Final Resul t * GLUCOSE 1 HOUR (09/26/2024 9:11 AM EDT) GLUCOSE 1 HOUR 99 <130 mg/dL [facility] 09/26/2024 9:11 AM EDT 09/26/2024 9:12 AM EDT Narrative CLIN[facility] - 09/26/2024 9:30 AM EDT us Paulina BAJWA LAB BLOOD ORDERABLES Final Resul t [facility] from Last 3 Months Insurance [employer] MEDICA[employer] Care Teams Archaeology Professor Relationship Specialty Start Date End Date Julia Miramontes MD [address] [place] [address] [facility] [place] [id number] PCP - General Family Medicine 12/23/24 Elissa Hartman PA [address] [place] [address] [place] [address] Physician Clinical Trial Specialist Family Medicine 12/01/22
--- OUTSIDE RECORDS SUMMARY | 2024-12-24 07:55 | XMS_ITS | Encounter Summary ---
Author Organization [facility] Address [address] [place] [address] Care Team Providers Care Lens Inspector Name Role Phone Elissa Hartman PA Unavailable [phone] Alessandra Deluna MD Primary Care Provider [phone] Julia Miramontes MD Primary Care Provider [phone] Encounter Details Date Type Department Care Team (Late st Contact Info) Description 05/17/2024 Abstract [facility] OB [address] [facility] [place] [address] Stoney Cole, [address] [facility] [address] [place], [place] [id number] Social History Tobacco Use Types Packs/Day Years [...] How often do you attend confucianist or hinduism serv ices? Never 12/01/2022 Do [...] Recorded Patient Health Questionnaire-2 Score 0 12/01/2022 [facility] of Occupat ional Health - [...] place to sleep or slept in a halfway (including now)? No 12/01/2022 Estimated Date of [...] AM EDT Visit [facility] B[facility] OB [address] [facility] [place] [address] Paulina James PA [address] [facility] [address] [place], [place] [address] documented as of this encounter Visit Diagnoses Not on filedocumented in this encounter Care Teams Lens Inspector Relationship Specialty Start Date End Date Alessandra Deluna MD [address] [place] [address] PCP - General Family Medicine 12/01/22 12/22/24 Julia Miramontes MD [address] [place] [address] [place] [address] PCP - General Family Medicine 12/23/24 Elissa Hartman PA [address] [place] [address] Physician Animal Pathologist Family Medicine 12/01/22 documented as of this encounter
--- OUTSIDE RECORDS SUMMARY | 2024-12-24 07:55 | XMS_ITS | Encounter Summary ---
Author Organization [facility] Address [address] [place] [address] Care Team Providers Care Envelope Sealer Operator Name Role Phone Elissa Hartman PA Unavailable [phone] Keenan Fatima MD Primary Care Provider [phone] Julia Miramontes MD Primary Care Provider [phone] Encounter Details Date Type Department Care Team (Late st Contact Info) Description 05/18/2024 Clinisync Result Encounter N[facility]S External Department Unsolicited Sammy Cole, DO [address] [facility] [place] [address] Social History Tobacco Use Types [...] week 12/01/2022 How often do you attend oriental orthodox or christian serv ices? Never 12/01/2022 Do you belong to any clubs o r organizations such as oriental orthodox groups, unions, fraternal or athletic groups, [...] Recorded Patient Health Questionnaire-2 Score 0 12/01/2022 [facility] of Occupat ional [facility] - Occupational Stress Questionnaire Answer Date [...] Description 01/29/2025 10:30 AM EDT Visit [facility] OB [address] [place] [address] Paulina James PA [address] [facility] [place] [address] documented as of this encounter Procedures Procedure Name Priority Date/Time Associated Diagnosis Comments US OB TRANSVAGINAL 05/18/2024 5: 00 AM EST documented in this encounter Results * US OB TRANSVAGINAL (05/18/2024 5:00 AM EST) Anatomical Region Laterality Modality Other 05/18/2024 5:00 AM EST Narrative 05/18/2024 5:03 [place] [address] Ultrasound Report Signed Patient: JENIFFER GARCIA MR#: [id number] : 1995 Acct:[id number] Age/Sex: 29 / F ADM Date: 05/17/24 Loc: NOMS Attending Dr: Sammy Cole D.O. Ordering Physician: Sammy Cole D.O. Date of Service: 05/17/24 Procedure(s): US OB transvaginal Accession Number(s): [id number] cc: Sammy Cole D.O.; KEENAN FATIMA [place] [address] Patient Name: JENIFFER GARCIA MRN: [id number] date: 1995 Sex: F Assigned Patient Location: [facility] Current Patient Location: Accession/Order Number: [id number] Exam Date: 05/17/2024 08:30 Report Date: 05/18/2024 [...] KETAN HENDRICKSON Date: 05/18/2024 05:00 Dictated By: Ketna Hendrickson M.D. Signed By: 05/18/24 0503 DD/ 0500 TD/TT: Bull Gang Supervisor: Procedure Note Radiology, Radiologist, - 05/20/2024 [place] [address] Ultrasound Report Signed Patient: JENIFFER GARCIAMR#: [id number] : 1995Acct:[id number] Age/Sex: 29 / FADM Date: 05/17/24 Loc: NOMS Attending Dr: Sammy Cole D.O. Ordering Physician: Sammy Cole D.O. Date of Service: 05/17/24 Procedure(s): US OB transvaginal Accession Number(s): [id number] cc: Sammy Cole D.O.; KEENAN FATIMA [place] [address] Patient Name: JENIFFER GARCIA MRN: [id number] date: 1995 Sex: F Assigned Patient Location: [facility] Current Patient Location: Accession/Order Number: [id number] Exam Date: 05/17/2024 08:30 Report Date: 05/18/2024 [...] Dictated By: Ketan Hendrickson M.D. Signed By:05/18/24 0508 DD/ 0500 TD/TT: Bull Gang Supervisor: us Sammy Douglas DO [facility] IMAGING Final Result documented in this encounter Visit Diagnoses Not on filedocumented in this encounter Care Teams Envelope Sealer Operator Relationship Specialty Start Date End Date Keenan Fatima MD [address] [place] [address] PCP - General Family Medicine 12/01/22 12/22/24 Julia Miramontes MD [address] [place] [address] [place] [address] PCP - General Family Medicine 12/23/24 Elissa Hartman PA [address] [place] [address] Physician Quality Assurance Clerk Family Medicine 12/01/22 documented as of this encounter
--- OUTSIDE RECORDS SUMMARY | 2024-12-24 07:55 | XMS_ITS | Encounter Summary ---
Author Organization [facility] Address [address] [place] [address] Care Team Providers Care Assembly Machine Feeder Name Role Phone Ashleigh Hartmanoraderik Arce PA Unavailable [phone] Alessandra Deluna MD Primary Care Provider [phone] Julia Miramontes MD Primary Care Provider [phone] Encounter Details Date Type Department Care Team (Late st Contact Info) Description 12/16/2024 Abstract [facility] B[facility] OB [address] [facility] [address] Marlen Tejeda LPN Social History Tobacco [...] How often do you attend yazidi or voodoo serv ices? Never 12/01/2022 Do [...] Score 0 12/01/2022 [facility] - Occupational Stress Questionnaire Answer [...] AM EDT Visit [facility] BCP OB [address] [facility] [address] Paulina James PA [address] [place] [address] documented as of this encounter Visit Diagnoses Not on filedocumented in this encounter Care Teams Assembly Machine Feeder Relationship Specialty Start Date End Date Alessandra Deluna MD [address] [place] [address] PCP - General Family Medicine 12/01/22 12/22/24 Julia Miramontes MD [address] [place] [address] PCP - General Family Medicine 12/23/24 Elissa Hartman PA [address] [place] [address] Physician Striper Family Medicine 12/01/22 documented as of this encounter
--- OUTSIDE RECORDS SUMMARY | 2024-12-24 07:55 | XMS_ITS | Clinical Summary ---
Author Organization [facility] Address [address] [place] [address] Care Team Providers Care Bilingual Counter Sales Retail Name Role Phone Julia Miramontes DO Primary Care Provider [phone] Allergies Active Allergy Reactions Criticality Noted Date [...] 11/06/2024 2:30 PM EDT Office Visit [facility] at [facility] [address] [place] [address] Edwardo Ho MD Palpitations (Primary [...] patient's age to complete this topic Insurance [facility] MEDICAID Care Teams Bilingual Counter Sales Retail Relationship Specialty Start Date End Date Julia Miramontes DO [address] [address] PCP - General Family Medicine 10/23/24
--- NOTE | 2024-12-24 12:15 | PC.NURSE ---
Matt Swift and 6 day old Sharan arrive for follow up. Jeniffer states feels well except nipples are painful, She makes my nipple lip stick shaped The peds told me she was slightly tongue tied. Jeniffer denies concerns for herself. VSS and assessment WNL Reviewed care of self and has no questions. Matt supportive and attentive to both mom and . Parents report that Sharan is doing well. Feeds every 2-4 hours , having 2 4 hour stretches of sleep in 24 hours, the closest feeds are 2 hours apart but mostly 3 hours on average. Discussed increasing feeding intervals to 2-3 hours with only 1 - four hour stretch of sleep at night. Verbalized understanding. Infant with VSS and assessment WNL, noted to have suspected tongue tie with obvious tight frenulum, anterior suspected. Upper lip tie noted as well. Discussed implications for feeding, supply and development for baby. Given handouts for pediatric dentist for evaluation/consultation. Infant weight is down 8.4% on day 6, 2 green/brown stools and 5-6 wets in last 24 hours. reviewed normal for . Mom also reports baby only nurses 1 breast at feeds. Reviewed reasons to use both breasts per feed. Verbalized understanding. Baby to breast, LC assist in deeper latch, infant continues to flatten one side of nipple causing discomfort for mom. WEight up 15 gms on first breast and 30 gms on second breast. Parents state will discuss care for infant and review with peds provider as well before deciding on tongue release. Support offered and pt aware to call for questions or concerns. Aware of [facility] group as well. Family leaves ambulatory for home.
[2024-12-24 12:22] VITALS: BP 134/82; PULSE 88; TEMP 36.7; O2SAT 97
== END 2024-12-24 12:27 | disposition home or self-care (01) ==
LOC: FBCO 07:53
PROVIDERS: PCP Family Medicine; Visit Provider Obstetrics & Gynecology
DX: Z39.1 Encounter for care and examination of lactating mother (principal)